=== PATIENT | male | born 1950 ===

== ENCOUNTER 2016-11-30 20:47 | Inpatient (IN) | payer MEDICARE ==
[2016-11-30 20:47] VITALS: BMI 21.9
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
[2016-11-30] MEDS: Albuterol-Ipratrop 3 mg / 0.5 (3 ml) UD IH SCH ×3 (21:10→21:37)
[2016-11-30] MEDS ORDERED: Albuterol-Ipratrop 3 mg / 0.5 (3 ml) UD ONE (21:12)
[2016-11-30 21:28] LABS: ABG ALLEN TEST POS; DRAW SITE R RAD
[2016-11-30 21:31] LABS: BASO % 0.5 % (0.0-2.0); EOS # 0.5 K/uL (0.0-0.7); EOS % 8.9 % (0.0-4.0); HEMATOCRIT 35.2 % (35.0-51.0); LYMPH # 0.8 K/uL (1.0-4.3); LYMPH % 13.1 % (20.0-40.0); MEAN CELL VOLUME 86.9 fL (80.0-94.0); MEAN CORPUSCULAR HEMOGLOBIN 28.2 pg (27.0-31.0); MEAN CORPUSCULAR HGB CONC 32.4 g/dL (33.0-37.0); MEAN PLATELET VOLUME 8.8 fL (7.2-11.7); MONO # 0.9 K/uL (0.0-0.8); RED CELL DISTRIBUTION WIDTH 15.5 % (11.5-14.5); WHITE BLOOD COUNT 6.1 K/uL (4.8-10.8)
[2016-11-30 21:42] LABS: POTASSIUM 5.3 mmol/L (3.6-5.2)
[2016-11-30 21:44] LABS: ALB/GLOB RATIO 1.3 (1.0-2.1); BILIRUBIN,TOTAL 0.8 mg/dL (0.2-1.3)
[2016-11-30 21:45] LABS: CALCIUM 7.9 mg/dl (8.6-10.4)
[2016-11-30 21:50] LABS: INR 1.4
--- NOTE | 2016-12-01 10:52 | RAD ---
PROCEDURE: CHEST RADIOGRAPH, 1 VIEW HISTORY: SOB COMPARISON: 08/02/2016 FINDINGS: LUNGS: Prominent consolidative opacification of the left mid to lower lung zone with loculated small to moderate right pleural effusion. Bilateral hilar prominence. Venous congestion. Biapical pleural thickening with upper lobe granulomatous changes. PLEURA: As above. CARDIOVASCULAR: Mild cardiomegaly. OSSEOUS STRUCTURES: Degenerative changes in the spine and shoulders. VISUALIZED UPPER ABDOMEN: Normal. OTHER FINDINGS: None. IMPRESSION: Prominent consolidative opacification of the left mid to lower lung zone with loculated small to moderate right pleural effusion. Bilateral hilar prominence. Venous congestion. Biapical pleural thickening with upper lobe granulomatous changes.
[2016-12-01] MEDS ORDERED: Metoprolol 1 mg/ml Inj IVP STA (12:57)
--- NOTE | 2016-12-01 15:45 | CP.PCM.PN ---
Subjective - Date & Time of Evaluation Date of Evaluation: 12/01/16 Time of Evaluation: 11:00 - Subjective Subjective: House Doctor Note House Doctor was called to evaluate patient who just finished dialysis and was complaining of chest pain. Patient was hypertensive 180/ 110 and tachycardic at 130-150s. EKG and Troponin (negative) was ordered. EKG showed afib/ a flutter. Patient was given 10mg lopressor IV and his blood pressured became more stable at 153/83 and HR was 100-115. Patient report he felt better. He was then transferred back to . Objective - Vital Signs/Intake and Output Vital Signs (last 24 hours): Temp Pulse Resp BP Pulse Ox 97.4 F L 110 H 20 135/60 97 12/01/16 15:21 12/01/16 15:21 12/01/16 15:21 12/01/16 15:21 12/01/16 15:21 Intake and Output: 12/01/16 12/01/16 06:59 18:59 Intake Total 240 Output Total 950 250 Balance -710 -250 - Medications Medications: Current Medications Heparin Sodium (Porcine) (Heparin) 5,000 units SC Q8 [facility] Last Admin: 12/01/16 14:48 Dose: 5,000 units Home Med (Meth/Meblue/Sod Phos/Psal/Hyos [Uribel Capsule]) 1 cap PO DAILY [facility] Sevelamer Carbonate (Renvela) 800 mg PO TID [facility] Last Admin: 12/01/16 14:48 Dose: 800 mg - Labs Labs: PT 15.6 SECONDS (9.7-12.2) H 11/30/16 21:25 INR 1.4 11/30/16 21:25 APTT 36 SECONDS (21-34) H 11/30/16 21:25
[2016-12-01] MEDS: Heparin25000 units/250ml 1/2NS 25,000 UNITS/250 ML BAG IV PRN (17:00)
[2016-12-01 17:17] LABS: INR 1.2
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
[2016-12-01] MEDS: guaiFENesin 600 mg ER Tab PO SCH (21:33)
[2016-12-01] MEDS: Rosuvastatin Calcium 2.5 mg Tab PO SCH (21:33)
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
--- NOTE | 2016-12-01 22:55 | CARD ---
APPROVED REPORT EKG Measurement Heart [id number] <Conclusion> Normal sinus rhythm Left atrial enlargement Left ventricular hypertrophy ST & Marked T wave abnormality, consider anterolateral ischemia or apical hypertrophy Abnormal ECG
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
[2016-12-02 08:10] LABS: BASO % 0.6 % (0.0-2.0); EOS # 1.3 K/uL (0.0-0.7); EOS % 21.8 % (0.0-4.0); HEMATOCRIT 38.9 % (35.0-51.0); LYMPH # 1.2 K/uL (1.0-4.3); LYMPH % 19.4 % (20.0-40.0); MEAN CELL VOLUME 86.1 fL (80.0-94.0); MEAN CORPUSCULAR HEMOGLOBIN 28.4 pg (27.0-31.0); MEAN PLATELET VOLUME 8.6 fL (7.2-11.7); MONO # 1.1 K/uL (0.0-0.8); MONO % 18.5 % (0.0-10.0); NRBC % 0.1 % (0.0-2.0); PLATELET COUNT 168 K/uL (130-400); RED CELL DISTRIBUTION WIDTH 15.5 % (11.5-14.5); WHITE BLOOD COUNT 6.1 K/uL (4.8-10.8)
[2016-12-02 08:15] LABS: INR 1.2
[2016-12-02 08:38] LABS: BASOPHIL 1 % (0-2); EOSINOPHIL 18 % (0-4); NEUTROPHIL 40 % (50-75); REACTIVE LYMPHOCYTES 2 % (0-0); TOTAL CELLS COUNTED 100
[2016-12-02] MEDS: Hyoscyamine 0.125 mg SL Tab SL SCH (10:00)
[2016-12-02] MEDS: guaiFENesin 600 mg ER Tab PO SCH ×2 (10:00→17:51)
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
--- NOTE | 2016-12-02 15:37 | CP.PCM.PN ---
<Dillon Griffin - Last Filed: 12/02/16 17:15> Subjective - Date & Time of Evaluation Date of Evaluation: 12/02/16 Time of Evaluation: 10:00 - Subjective Subjective: EP-Cardiology Progress Note Dr. Alan Patient seen and examined at bedside. HR now controlled, bradycardic to 40's overnight, but hemodynamically stable. Cardizem drip stopped this AM. Denies chest pain, shortness of breath. Remaining ROS negative. Objective - Vital Signs/Intake and Output Vital Signs (last 24 hours): Temp Pulse Resp BP Pulse Ox 97.6 F 45 L 18 99/59 L 96 12/02/16 07:20 12/02/16 07:30 12/02/16 07:20 12/02/16 07:20 12/02/16 07:20 Intake and Output: 12/02/16 12/02/16 06:59 18:59 Intake Total 379.6 Output Total 600 Balance -220.4 - Medications Medications: Current Medications Guaifenesin (Mucinex La) [address] [facility] Last Admin: 12/02/16 10:00 Dose: 600 mg Hyoscyamine (Levsin) 0.[address] [facility] Heparin Sodium/Sodium Chloride (Heparin 28429 Units/250ml 1/2 Normal Saline) 25 ,000 units in 250 mls @ 8.424 mls/hr IV .Q24H PRN; Protocol; 12 UNITS/KG/HR PRN Reason: PROTOCOL Last Admin: 12/01/16 17:00 Dose: 12 units/kg/hr, 8.424 mls/hr Metoprolol Tartrate (Lopressor) [address] [facility] Last Admin: 12/02/16 10:00 Dose: Not Given Rosuvastatin Calcium (Crestor) 2.[address] [facility] Last Admin: 12/01/16 21:33 Dose: 2.5 mg Sevelamer Carbonate (Renvela) [address] [facility] Last Admin: 12/02/16 14:30 Dose: 800 mg - Labs Labs: 12/02/16 07:57 PT 13.6 SECONDS (9.7-12.2) H 12/02/16 07:57 INR 1.2 12/02/16 07:57 APTT 52 SECONDS (21-34) H D 12/02/16 07:57 - Additional Findings Additional findings: - Constitutional Appears: No Acute Distress, Non-toxic, No acute distress - Head Exam Head Exam: NORMAL INSPECTION, NORMOCEPHALIC - Eye Exam Eye Exam: EOMI, Normal appearance, No scleral icterus/conjunctival injection - ENT Exam ENT Exam: Mucous Membranes Moist - Neck Exam Neck exam: Appropriate ROM, No JVD - Respiratory Exam Respiratory Exam: Wheezes (mild diffuse wheezing in all auscultated santoyo), NORMAL BREATHING PATTERN - Cardiovascular Exam Cardiovascular Exam: Bradycardia, Regular rhythm, HR 40's-50's on bedside telemetry monitoring; no tachycardia, irregular rhythm - GI/Abdominal Exam GI & Abdominal Exam: Normal Bowel Sounds, Soft. absent: Distended, Tenderness - Extremities Exam Extremities exam: Positive for: full ROM, normal inspection. Negative for: pedal edema - Back Exam Back exam: NORMAL INSPECTION - Neurological Exam Neurological exam: Awake/Alert, Oriented x3 - Psychiatric Exam Psychiatric exam: Normal Affect, Normal Mood - Skin Skin Exam: Dry, Normal Color, Warm, Intact Assessment and Plan (1) Atrial fibrillation with RVR Assessment & Plan: EKG 12/01/16: Atrial fibrillation with RVR. EKG on admission 11/30/16: Sinus Rhythm (61), ST/T Changes (anterolat ischmia unchanged from 08/02/16), Nonspecific Changes. ECHO 06/29/16: Mild to moderate LVH, mild ventricular diastolic dysfunction, left atrium mildly dilatates, moderated pulm HTN. Recent cath on - Non obstructive. -HR stable, bradycardic overnight but remained hemodynamically stable -Cardizem drip stopped, continue Metoprolol Tartrate 25mg PO daily -Continue heparin drip -No ablation needed at this time -T-wave inversions noted on telemetry, may be 2/2 to tachycardic rate previously , continue to monitor -Additional management as per Dr. Anderson Status: Acute - Assessment and Plan (Free Text) Assessment: Case discussed with Dr. Alan. <Elvie Alan - Last Filed: 01/16/17 01:42> Objective - Vital Signs/Intake and Output Vital Signs (last 24 hours): Temp Pulse Resp BP Pulse Ox 97.6 F 60 20 119/72 95 12/03/16 15:15 12/03/16 15:15 12/03/16 15:15 12/03/16 15:15 12/03/16 15:15 - Labs Labs: 12/03/16 07:13 12/03/16 07:13 PT 12.1 SECONDS (9.7-12.2) 12/03/16 07:13 INR 1.1 12/03/16 07:13 APTT 51 SECONDS (21-34) H 12/03/16 07:13 Assessment and Plan (1) Atrial fibrillation with RVR Status: Acute Attending/Attestation - Attestation I have personally seen and examined this patient.: Yes I have fully participated in the care of the patient.: Yes I have reviewed all pertinent clinical information, including history, physical exam and plan: Yes Notes (Text): 01/16/17 01:41 Cardizem drip stopped for salvador continue HD
[2016-12-02] MEDS: Rosuvastatin Calcium 2.5 mg Tab PO SCH (21:45)
[2016-12-02] MEDS: Heparin25000 units/250ml 1/2NS 25,000 UNITS/250 ML BAG IV PRN (21:46)
--- NOTE | 2016-12-02 22:57 | CP.PCM.PN ---
Subjective - Date & Time of Evaluation Date of Evaluation: 12/02/16 Time of Evaluation: 07:37 - Subjective Subjective: Pt seen & evaluated, is feeling better Objective - Vital Signs/Intake and Output Vital Signs (last 24 hours): Temp Pulse Resp BP Pulse Ox 97.7 F 50 L 20 120/65 95 12/02/16 15:46 12/02/16 15:46 12/02/16 15:46 12/02/16 15:46 12/02/16 15:46 Intake and Output: 12/02/16 12/03/16 18:59 06:59 Intake Total 250 Balance 250 - Medications Medications: Current Medications Guaifenesin (Mucinex La) 600 mg PO BID [facility] Last Admin: 12/02/16 17:51 Dose: 600 mg Hyoscyamine (Levsin) 0.125 mg SL DAILY [facility] Heparin Sodium/Sodium Chloride (Heparin 96673 Units/250ml 1/2 Normal Saline) 25 ,000 units in 250 mls @ 8.424 mls/hr IV .Q24H PRN; Protocol; 12 UNITS/KG/HR PRN Reason: PROTOCOL Last Admin: 12/02/16 21:46 Dose: 12 units/kg/hr, 8.424 mls/hr Metoprolol Tartrate (Lopressor) 25 mg PO DAILY [facility] Last Admin: 12/02/16 10:00 Dose: Not Given Rosuvastatin Calcium (Crestor) 2.5 mg PO HS [facility] Last Admin: 12/02/16 21:45 Dose: 2.5 mg Sevelamer Carbonate (Renvela) 800 mg PO TID [facility] Last Admin: 12/02/16 17:51 Dose: 800 mg - Labs Labs: 12/02/16 07:57 PT 13.6 SECONDS (9.7-12.2) H 12/02/16 07:57 INR 1.2 12/02/16 07:57 APTT 52 SECONDS (21-34) H D 12/02/16 07:57 - Constitutional Appears: Well - Head Exam Head Exam: ATRAUMATIC, NORMAL INSPECTION, NORMOCEPHALIC - Eye Exam Eye Exam: EOMI, Normal appearance, PERRL Pupil Exam: NORMAL ACCOMODATION, PERRL - ENT Exam ENT Exam: Mucous Membranes Moist, Normal Exam - Respiratory Exam Respiratory Exam: Decreased Breath Sounds, Rales, NORMAL BREATHING PATTERN - Cardiovascular Exam Cardiovascular Exam: Bradycardia, +S1, +S2 - GI/Abdominal Exam GI & Abdominal Exam: Soft, Normal Bowel Sounds. absent: Tenderness
--- NOTE | 2016-12-03 00:36 | CP.PCM.PN ---
Subjective - Date & Time of Evaluation Date of Evaluation: 12/02/16 Time of Evaluation: 14:00 - Subjective Subjective: SEEN ON RENAL F/U ON HD T T S FEELS IMPROVED Objective - Vital Signs/Intake and Output Vital Signs (last 24 hours): Temp Pulse Resp BP Pulse Ox 97.7 F 50 L 20 120/65 95 12/02/16 15:46 12/02/16 15:46 12/02/16 15:46 12/02/16 15:46 12/02/16 15:46 Intake and Output: 12/02/16 12/03/16 18:59 06:59 Intake Total 650 Output Total 300 Balance 350 - Medications Medications: Current Medications Guaifenesin (Mucinex La) 600 mg PO BID [facility] Last Admin: 12/02/16 17:51 Dose: 600 mg Hyoscyamine (Levsin) 0.125 mg SL DAILY [facility] Heparin Sodium/Sodium Chloride (Heparin 83413 Units/250ml 1/2 Normal Saline) 25 ,000 units in 250 mls @ 8.424 mls/hr IV .Q24H PRN; Protocol; 12 UNITS/KG/HR PRN Reason: PROTOCOL Last Admin: 12/02/16 21:46 Dose: 12 units/kg/hr, 8.424 mls/hr Metoprolol Tartrate (Lopressor) 25 mg PO DAILY [facility] Last Admin: 12/02/16 10:00 Dose: Not Given Rosuvastatin Calcium (Crestor) 2.5 mg PO HS [facility] Last Admin: 12/02/16 21:45 Dose: 2.5 mg Sevelamer Carbonate (Renvela) 800 mg PO TID [facility] Last Admin: 12/02/16 17:51 Dose: 800 mg - Labs Labs: 12/02/16 07:57 PT 13.6 SECONDS (9.7-12.2) H 12/02/16 07:57 INR 1.2 12/02/16 07:57 APTT 52 SECONDS (21-34) H D 12/02/16 07:57 Assessment and Plan - Assessment and Plan (Free Text) Assessment: ESRD ON HD T T S MULTIPLE CO MORBIDITIES P : C/O CURRENT CARE
--- NOTE | 2016-12-03 06:39 | CP.PCM.PN ---
Subjective - Date & Time of Evaluation Date of Evaluation: 12/03/16 Time of Evaluation: 06:35 - Subjective Subjective: no complaints on HD Objective - Vital Signs/Intake and Output Vital Signs (last 24 hours): Temp Pulse Resp BP Pulse Ox 97.9 F 54 L 20 117/66 99 12/03/16 05:24 12/03/16 05:24 12/03/16 05:24 12/03/16 05:24 12/03/16 05:24 Intake and Output: 12/02/16 12/03/16 18:59 06:59 Intake Total 650 Output Total 675 Balance -25 - Medications Medications: Current Medications Guaifenesin (Mucinex La) 600 mg PO BID [facility] Last Admin: 12/02/16 17:51 Dose: 600 mg Hyoscyamine (Levsin) 0.125 mg SL DAILY [facility] Heparin Sodium/Sodium Chloride (Heparin 19791 Units/250ml 1/2 Normal Saline) 25 ,000 units in 250 mls @ 8.424 mls/hr IV .Q24H PRN; Protocol; 12 UNITS/KG/HR PRN Reason: PROTOCOL Last Admin: 12/02/16 21:46 Dose: 12 units/kg/hr, 8.424 mls/hr Metoprolol Tartrate (Lopressor) 25 mg PO DAILY [facility] Last Admin: 12/02/16 10:00 Dose: Not Given Rosuvastatin Calcium (Crestor) 2.5 mg PO HS [facility] Last Admin: 12/02/16 21:45 Dose: 2.5 mg Sevelamer Carbonate (Renvela) 800 mg PO TID [facility] Last Admin: 12/02/16 17:51 Dose: 800 mg - Labs Labs: 12/02/16 07:57 PT 13.6 SECONDS (9.7-12.2) H 12/02/16 07:57 INR 1.2 12/02/16 07:57 APTT 52 SECONDS (21-34) H D 12/02/16 07:57 - Constitutional Appears: Well - Head Exam Head Exam: ATRAUMATIC, NORMOCEPHALIC - Eye Exam Eye Exam: Normal appearance - ENT Exam ENT Exam: Mucous Membranes Moist - Respiratory Exam Respiratory Exam: Rhonchi - Cardiovascular Exam Cardiovascular Exam: REGULAR RHYTHM, Murmur - GI/Abdominal Exam GI & Abdominal Exam: Soft, Normal Bowel Sounds - Exam External exam: NORMAL EXTERNAL EXAM - Extremities Exam Extremities Exam: Normal Inspection - Neurological Exam Neurological Exam: Awake - Psychiatric Exam Psychiatric exam: Normal Affect - Skin Skin Exam: Dry Assessment and Plan (1) Atrial fibrillation with RVR Assessment & Plan: continue crestoe for cholesterhol and rate control HD as per nephrology Status: Acute
[2016-12-03 07:32] LABS: BASO % 0.5 % (0.0-2.0); EOS # 1.1 K/uL (0.0-0.7); EOS % 19.2 % (0.0-4.0); HEMATOCRIT 36.8 % (35.0-51.0); LYMPH # 1.4 K/uL (1.0-4.3); LYMPH % 24.7 % (20.0-40.0); MEAN CELL VOLUME 85.6 fL (80.0-94.0); MEAN CORPUSCULAR HEMOGLOBIN 28.5 pg (27.0-31.0); MEAN CORPUSCULAR HGB CONC 33.3 g/dL (33.0-37.0); MEAN PLATELET VOLUME 8.8 fL (7.2-11.7); MONO % 17.5 % (0.0-10.0); NRBC % 0.1 % (0.0-2.0); RED CELL DISTRIBUTION WIDTH 15.2 % (11.5-14.5); WHITE BLOOD COUNT 5.6 K/uL (4.8-10.8)
[2016-12-03 07:37] LABS: INR 1.1
[2016-12-03 07:47] LABS: CHLORIDE 103 mmol/L (98-107); POTASSIUM 4.5 mmol/L (3.6-5.2); SODIUM 136 mmol/L (132-148)
[2016-12-03 07:49] LABS: AST/SGOT 24 U/L (17-59); BILIRUBIN,TOTAL 0.7 mg/dL (0.2-1.3); CARBON DIOXIDE 21 mmol/L (22-30); CHOLESTEROL 86 mg/dL (0-199); GFR AFRICAN-AMERICAN 16; TOTAL PROTEIN 6.4 g/dL (6.3-8.3)
[2016-12-03 07:50] LABS: ALKALINE PHOSPHATASE 75 U/L (38-126); ALT/SGPT 22 U/L (21-72); BLOOD UREA NITROGEN 57 mg/dL (9-20); CALCIUM 8.4 mg/dl (8.6-10.4); GLUCOSE,RANDOM 89 mg/dL (75-110)
[2016-12-03 08:09] LABS: ALB/GLOB RATIO 1.1 (1.0-2.1)
[2016-12-03 08:22] LABS: THYROID STIMULATING HORMONE < 0.02 mIU/L (0.46-4.68)
[2016-12-03] MEDS: Hyoscyamine 0.125 mg SL Tab SL SCH (10:00)
[2016-12-03] MEDS: guaiFENesin 600 mg ER Tab PO SCH ×2 (13:41→18:18)
[2016-12-03 18:11] VITALS: BP 119/72; PULSE 60; RESP 20; TEMP 97.6; O2SAT 95
--- NOTE | 2016-12-03 19:49 | CP.PCM.PN ---
Subjective - Date & Time of Evaluation Date of Evaluation: 12/03/16 Time of Evaluation: 19:47 - Subjective Subjective: had hd still wheezy refused presciption on hd only 1.5 out very low pump speed will sign out AMA risks explained including f/up as out pt Objective - Vital Signs/Intake and Output Vital Signs (last 24 hours): Temp Pulse Resp BP Pulse Ox 97.6 F 60 20 119/72 95 12/03/16 15:15 12/03/16 15:15 12/03/16 15:15 12/03/16 15:15 12/03/16 15:15 - Medications Medications: Current Medications Guaifenesin (Mucinex La) 600 mg PO BID [facility] Last Admin: 12/03/16 18:18 Dose: 600 mg Hyoscyamine (Levsin) 0.125 mg SL DAILY [facility] Last Admin: 12/03/16 10:00 Dose: Not Given Metoprolol Tartrate (Lopressor) 25 mg PO DAILY [facility] Last Admin: 12/03/16 10:00 Dose: Not Given Rosuvastatin Calcium (Crestor) 2.5 mg PO HS [facility] Last Admin: 12/02/16 21:45 Dose: 2.5 mg Sevelamer Carbonate (Renvela) 800 mg PO TID [facility] Last Admin: 12/03/16 18:18 Dose: 800 mg - Labs Labs: 12/03/16 07:13 12/03/16 07:13 PT 12.1 SECONDS (9.7-12.2) 12/03/16 07:13 INR 1.1 12/03/16 07:13 APTT 51 SECONDS (21-34) H 12/03/16 07:13 - Constitutional Appears: Non-toxic - Head Exam Head Exam: NORMAL INSPECTION - Eye Exam Eye Exam: Normal appearance - ENT Exam ENT Exam: Mucous Membranes Moist - Respiratory Exam Respiratory Exam: Wheezes - Cardiovascular Exam Cardiovascular Exam: REGULAR RHYTHM - GI/Abdominal Exam GI & Abdominal Exam: Soft, Normal Bowel Sounds - Extremities Exam Extremities Exam: Normal Inspection - Neurological Exam Neurological Exam: Alert, Awake, Normal Gait - Psychiatric Exam Psychiatric exam: Agitated, Normal Affect, Normal Mood - Skin Skin Exam: Dry, Warm Assessment and Plan - Assessment and Plan (Free Text) Plan: hd tts
--- NOTE | 2016-12-03 23:34 | CP.PCM.DIS ---
Provider - Provider Date of Admission: 11/30/16 22:04 Attending physician: Preston Toth MD Time Spent in preparation of Discharge (in minutes): 30 Hospital Course - Lab Results Lab Results: Most Recent Lab Values WBC 5.6 K/uL (4.8-10.8) 12/03/16 07:13 RBC 4.30 Mil/uL (4.40-5.90) L 12/03/16 07:13 Hgb 12.2 g/dL (12.0-18.0) 12/03/16 07:13 Hct 36.8 % (35.0-51.0) 12/03/16 07:13 MCV 85.6 fL (80.0-94.0) 12/03/16 07:13 MCH 28.5 pg (27.0-31.0) 12/03/16 07:13 MCHC 33.3 g/dL (33.0-37.0) 12/03/16 07:13 RDW 15.2 % (11.5-14.5) H 12/03/16 07:13 Plt Count 158 K/uL (130-400) 12/03/16 07:13 MPV 8.8 fL (7.2-11.7) 12/03/16 07:13 Neut % (Auto) 38.1 % (50.0-75.0) L 12/03/16 07:13 Lymph % (Auto) 24.7 % (20.0-40.0) 12/03/16 07:13 [place] % (Auto) 17.5 % (0.0-10.0) H 12/03/16 07:13 Eos % (Auto) 19.2 % (0.0-4.0) H 12/03/16 07:13 Baso % (Auto) 0.5 % (0.0-2.0) 12/03/16 07:13 Neut # 2.1 K/uL (1.8-7.0) 12/03/16 07:13 Lymph # 1.4 K/uL (1.0-4.3) 12/03/16 07:13 [place] # 1.0 K/uL (0.0-0.8) H 12/03/16 07:13 Eos # 1.1 K/uL (0.0-0.7) H 12/03/16 07:13 Baso # 0.0 K/uL (0.0-0.2) 12/03/16 07:13 Neutrophils % (Manual) 40 % (50-75) L 12/02/16 07:57 Band Neutrophils % 3 % (0-2) H 12/02/16 07:57 Lymphocytes % (Manual) 17 % (20-40) L 12/02/16 07:57 Reactive Lymphs % 2 % (0-0) H 12/02/16 07:57 Monocytes % (Manual) 19 % (0-10) H 12/02/16 07:57 Eosinophils % (Manual) 18 % (0-4) H 12/02/16 07:57 Basophils % (Manual) 1 % (0-2) 12/02/16 07:57 Platelet Estimate Normal (NORMAL) 12/02/16 07:57 Poikilocytosis (manual Slight 12/02/16 07:57 Anisocytosis (manual) Slight 12/02/16 07:57 Ovalocytes Slight 12/02/16 07:57 PT 12.1 SECONDS (9.7-12.2) 12/03/16 07:13 INR 1.1 12/03/16 07:13 APTT 51 SECONDS (21-34) H 12/03/16 07:13 Puncture Site R rad 11/30/16 21:25 pCO2 31 mm/Hg (35-45) L 11/30/16 21:25 pO2 170 mm/Hg (80-100) H 11/30/16 21:25 HCO3 22.3 mmol/L (21-28) 11/30/16 21:25 ABG pH 7.42 (7.35-7.45) 11/30/16 21:25 ABG Total CO2 21.1 mmol/L (22-28) L 11/30/16 21:25 ABG O2 Saturation 98.9 % (95-98) H 11/30/16 21:25 ABG Base Excess -3.4 mmol/L (-2.0-3.0) L 11/30/16 21:25 Florentino Test Pos 11/30/16 21:25 ABG Potassium 5.1 mmol/L (3.6-5.2) 11/30/16 21:25 Sodium 140.0 mmol/l (132-148) 11/30/16 21:25 Chloride 113.0 mmol/L (98-107) H 11/30/16 21:25 Glucose 91 mg/dl (75-110) 11/30/16 21:25 Lactate 0.6 mmol/L (0.7-2.1) L 11/30/16 21:25 Liter Flow 5.0 11/30/16 21:25 Sodium 136 mmol/L (132-148) 12/03/16 07:13 Potassium 4.5 mmol/L (3.6-5.2) 12/03/16 07:13 Chloride 103 mmol/L (98-107) 12/03/16 07:13 Carbon Dioxide 21 mmol/L (22-30) L 12/03/16 07:13 Anion Gap 17 (10-20) 12/03/16 07:13 BUN 57 mg/dL (9-20) H 12/03/16 07:13 Creatinine 4.6 MG/DL (0.8-1.5) H 12/03/16 07:13 Est GFR ( Amer) 16 12/03/16 07:13 Est GFR (Non-Af Amer) 13 12/03/16 07:13 Random Glucose 89 mg/dL (75-110) 12/03/16 07:13 Calcium 8.4 mg/dl (8.6-10.4) L 12/03/16 07:13 Total Bilirubin 0.7 mg/dL (0.2-1.3) 12/03/16 07:13 AST 24 U/L (17-59) 12/03/16 07:13 ALT 22 U/L (21-72) 12/03/16 07:13 Alkaline Phosphatase 75 U/L (38-126) 12/03/16 07:13 Troponin I 0.0450 ng/mL (0.00-0.120) 12/01/16 12:43 NT-Pro-B Natriuret Pep 56772 pg/mL (0-900) H 11/30/16 21:25 Total Protein 6.4 g/dL (6.3-8.3) 12/03/16 07:13 Albumin 3.4 g/dL (3.5-5.0) L 12/03/16 07:13 Globulin 3.0 gm/dL (2.2-3.9) 12/03/16 07:13 Albumin/Globulin Ratio 1.1 (1.0-2.1) 12/03/16 07:13 Triglycerides 117 mg/dL (0-149) 12/03/16 07:13 Cholesterol 86 mg/dL (0-199) 12/03/16 07:13 LDL Cholesterol Direct 35 mg/dL (0-129) 12/03/16 07:13 HDL Cholesterol 30 mg/dL (30-70) 12/03/16 07:13 TSH 3rd Generation < 0.02 mIU/L (0.46-4.68) L 12/03/16 07:13 Arterial Blood Potassium 5.1 mmol/L (3.6-5.2) 11/30/16 21:25 - Hospital Course Hospital Course: Pt was seen and examined, started on heparin and coumadin later Pt signed out against medical advice, had hd still wheezy refused presciption on hd only 1.5 out very low pump speed will sign out AMA risks explained including f/up as out pt Discharge Exam - Head Exam Head Exam: NORMAL INSPECTION - Eye Exam Eye Exam: EOMI, Normal appearance, PERRL Pupil Exam: NORMAL ACCOMODATION, PERRL - ENT Exam ENT Exam: Mucous Membranes Moist - Respiratory Exam Respiratory Exam: Clear to PA & Lateral, NORMAL BREATHING PATTERN - Cardiovascular Exam Cardiovascular Exam: REGULAR RHYTHM, +S1, +S2 - GI/Abdominal Exam GI & Abdominal Exam: Normal Bowel Sounds - Neurological Exam Neurological exam: Alert, CN II-XII Intact, Normal Gait, Oriented x3, Reflexes Normal Discharge Plan - Follow Up Plan Condition: FAIR Disposition: AGAINST MEDICAL ADVICE
--- NOTE | 2016-12-07 08:31 | PCM.HF ---
Heart Failure Core Measure - Heart Failure Ejection Fraction: 40 % or Greater TONEY Inhibitor Prescribed: No Contraindication/Reason for not providing: ESRD Beta-Ambrose Prescribed: Metoprolol Succinate Angiotensin II Receptor Ambrose Prescribed: No Contraindication/Reason for not providing: ESRD AnticoagulationTherapy for Atrial Fibrillation/Atrialflutter: Yes Aldosterone Antagonist Prescribed: No Contraindication/Reason for not providing: EF>45/ESRD Hydralazine Nitrate Prescribed: No Contraindication/Reason for not providing: ESRD/EF>45 Implantable Cardioverter Defibrillator Therapy: No Contraindication/Reason for not providing: EF>45 Cardiac Resynchronization Therapy Prescribed: No Contraindication/Reason for not providing: EF>45 - Follow up Will be discharged to: Home Follow Up Date (must be within 7 days from discharge): 12/07/16 Follow Up Time: 09:00
--- NOTE | 2016-12-27 08:01 | CARD ---
APPROVED REPORT EKG Measurement Heart [id number] <Conclusion> Atrial flutter with variable AV block with premature ventricular or aberrantly conducted complexes Left ventricular hypertrophy with repolarization abnormality Abnormal ECG
== END 2016-12-03 20:40 | disposition left against medical advice (07) | DRG 308 ==
LOC: C.ER 20:47 → C.9E 22:04 → C.6T 22:55
PROVIDERS: ADMIT Internal Medicine; ATTEND Internal Medicine
PROC: 5A1D00Z (ICD-10-PCS; principal; 2016-12-01)
DX: I48.91 Unspecified atrial fibrillation (principal); N18.6 End stage renal disease; I13.2 Hypertensive heart and chronic kidney disease with heart failure and with stage 5 chronic kidney disease, or end stage renal disease; Q60.0 Renal agenesis, unilateral; I27.2 Other secondary pulmonary hypertension; D72.1 Eosinophilia; I48.92 Unspecified atrial flutter; I50.30 Unspecified diastolic (congestive) heart failure; Z96.641 Presence of right artificial hip joint; E78.5 Hyperlipidemia, unspecified; Z99.2 Dependence on renal dialysis; Z86.718 Personal history of other venous thrombosis and embolism; Z87.891 Personal history of nicotine dependence

== ENCOUNTER 2017-03-30 11:36 | Observation (INO) | payer MEDICARE ==
[2017-03-30 11:36] VITALS: BMI 21.9
[2017-03-30 12:05] LABS: BASO % 0.5 % (0.0-2.0); EOS # 1.1 K/uL (0.0-0.7); EOS % 13.8 % (0.0-4.0); HEMATOCRIT 49.8 % (35.0-51.0); LYMPH # 1.6 K/uL (1.0-4.3); LYMPH % 20.9 % (20.0-40.0); MEAN CORPUSCULAR HEMOGLOBIN 30.4 pg (27.0-31.0); MEAN CORPUSCULAR HGB CONC 34.1 g/dL (33.0-37.0); MEAN PLATELET VOLUME 8.6 fL (7.2-11.7); MONO # 0.9 K/uL (0.0-0.8); NRBC % 0.1 % (0.0-2.0); RED CELL DISTRIBUTION WIDTH 14.8 % (11.5-14.5); WHITE BLOOD COUNT 7.7 K/uL (4.8-10.8)
[2017-03-30 12:07] LABS: MEAN CELL VOLUME 89.2 fL (80.0-94.0)
[2017-03-30] MEDS ORDERED: HYDROmorphone 0.5 mg/0.5 ml ISec IVP STA (12:10)
[2017-03-30 12:15] LABS: POTASSIUM 4.4 mmol/L (3.6-5.2)
[2017-03-30 12:17] LABS: BILIRUBIN,TOTAL 1.6 mg/dL (0.2-1.3)
[2017-03-30 12:18] LABS: ALB/GLOB RATIO 1.3 (1.0-2.1); CALCIUM 8.9 mg/dl (8.6-10.4); TOTAL PROTEIN 8.9 g/dL (6.3-8.3)
--- NOTE | 2017-03-30 12:58 | RAD ---
HISTORY: cp COMPARISON: Chest x-ray performed 11/30/16 TECHNIQUE: Chest, one view. FINDINGS: LUNGS: Small left pleural effusion. Bibasilar atelectasis/ infiltrates. Biapical pleural thickening. No definite pneumothorax. Please note that chest x-ray has limited sensitivity for the detection of pulmonary masses. CARDIOVASCULAR: Mild cardiomegaly. Atherosclerotic calcifications of the aorta. OSSEOUS STRUCTURES: Degenerative changes. VISUALIZED UPPER ABDOMEN: Unremarkable. OTHER FINDINGS: None. IMPRESSION: Small left pleural effusion. Bibasilar atelectasis/ infiltrates. Biapical pleural thickening. Cardiomegaly.
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
[2017-03-30] MEDS ORDERED: Digoxin 500 mcg/2ml (0.5 mg/2ml) Inj IVP ONE (14:38)
[2017-03-30] MEDS ORDERED: Digoxin 500 mcg/2ml (0.5 mg/2ml) Inj ONE (15:02)
[2017-03-30 15:11] VITALS: PULSE 136
[2017-03-30] MEDS ORDERED: Metoprolol Succinate 25 mg XL Tab PO STA (18:58)
[2017-03-30] MEDS ORDERED: Rosuvastatin Calcium 2.5 mg Tab PO SCH (22:00)
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
[2017-03-31 08:19] LABS: POTASSIUM 4.5 mmol/L (3.6-5.2)
[2017-03-31 08:23] LABS: CALCIUM 8.6 mg/dl (8.6-10.4)
[2017-03-31 08:43] VITALS: TEMP 97.6; O2SAT 97
[2017-03-31] MEDS ORDERED: Metoprolol Succinate 25 mg XL Tab PO SCH (10:00)
[2017-03-31 10:20] VITALS: BP 143/77; PULSE 50; RESP 18
--- NOTE | 2017-03-31 23:37 | CP.PCM.DIS ---
Provider - Provider Date of Admission: 03/30/17 14:34 Attending physician: Preston Toth MD Hospital Course - Lab Results Lab Results: Most Recent Lab Values WBC 7.7 K/uL (4.8-10.8) 03/30/17 12:01 RBC 5.59 Mil/uL (4.40-5.90) 03/30/17 12:01 Hgb 17.0 g/dL (12.0-18.0) D 03/30/17 12:01 Hct 49.8 % (35.0-51.0) 03/30/17 12:01 MCV 89.2 fL (80.0-94.0) D 03/30/17 12:01 MCH 30.4 pg (27.0-31.0) 03/30/17 12:01 MCHC 34.1 g/dL (33.0-37.0) 03/30/17 12:01 RDW 14.8 % (11.5-14.5) H 03/30/17 12:01 Plt Count 140 K/uL (130-400) 03/30/17 12:01 MPV 8.6 fL (7.2-11.7) 03/30/17 12:01 Neut % (Auto) 52.8 % (50.0-75.0) 03/30/17 12:01 Lymph % (Auto) 20.9 % (20.0-40.0) 03/30/17 12:01 [place] % (Auto) 12.0 % (0.0-10.0) H 03/30/17 12:01 Eos % (Auto) 13.8 % (0.0-4.0) H 03/30/17 12:01 Baso % (Auto) 0.5 % (0.0-2.0) 03/30/17 12:01 Neut # 4.1 K/uL (1.8-7.0) 03/30/17 12:01 Lymph # 1.6 K/uL (1.0-4.3) 03/30/17 12:01 [place] # 0.9 K/uL (0.0-0.8) H 03/30/17 12:01 Eos # 1.1 K/uL (0.0-0.7) H 03/30/17 12:01 Baso # 0.0 K/uL (0.0-0.2) 03/30/17 12:01 PT 11.5 SECONDS (9.7-12.2) 03/30/17 12:01 INR 1.0 03/30/17 12:01 APTT 24 SECONDS (21-34) 03/30/17 12:01 Sodium 140 mmol/L (132-148) 03/31/17 08:00 Potassium 4.5 mmol/L (3.6-5.2) 03/31/17 08:00 Chloride 97 mmol/L (98-107) L 03/31/17 08:00 Carbon Dioxide 27 mmol/L (22-30) 03/31/17 08:00 Anion Gap 21 (10-20) H 03/31/17 08:00 BUN 34 mg/dL (9-20) H 03/31/17 08:00 Creatinine 3.3 MG/DL (0.8-1.5) H 03/31/17 08:00 Est GFR ( Amer) 23 03/31/17 08:00 Est GFR (Non-Af Amer) 19 03/31/17 08:00 Random Glucose 79 mg/dL (75-110) 03/31/17 08:00 Calcium 8.6 mg/dl (8.6-10.4) 03/31/17 08:00 Total Bilirubin 1.6 mg/dL (0.2-1.3) H 03/30/17 12:01 AST 58 U/L (17-59) 03/30/17 12:01 ALT 24 U/L (21-72) 03/30/17 12:01 Alkaline Phosphatase 119 U/L (38-126) 03/30/17 12:01 Total Creatine Kinase 120 U/L (55-170) 03/30/17 19:55 CK-MB (Mass) 8.02 ng/mL (0.0-3.38) H 03/30/17 19:55 Troponin I, Quant 0.9040 ng/mL (0.00-0.120) H* 03/30/17 19:55 Total Protein 8.9 g/dL (6.3-8.3) H 03/30/17 12:01 Albumin 5.0 g/dL (3.5-5.0) D 03/30/17 12:01 Globulin 4.0 gm/dL (2.2-3.9) H 03/30/17 12:01 Albumin/Globulin Ratio 1.3 (1.0-2.1) 03/30/17 12:01 TSH 3rd Generation 0.02 mIU/L (0.46-4.68) L 03/30/17 17:12 Discharge Plan - Follow Up Plan Condition: FAIR Disposition: AGAINST MEDICAL ADVICE
--- NOTE | 2017-04-01 01:39 | CARD ---
APPROVED REPORT EKG Measurement Heart [id number] <Conclusion> Normal sinus rhythm with sinus arrhythmia Biatrial enlargement Left ventricular hypertrophy ST & T wave abnormality, consider inferior ischemia ST & T wave abnormality, consider anterolateral ischemia Abnormal ECG
--- NOTE | 2017-04-03 16:37 | CARD ---
APPROVED REPORT EKG Measurement Heart [id number] <Conclusion> Normal sinus rhythm with sinus arrhythmia Biatrial enlargement Left ventricular hypertrophy ST & T wave abnormality, consider inferior ischemia ST & T wave abnormality, consider anterolateral ischemia Abnormal ECG
--- NOTE | 2017-04-03 16:40 | CARD ---
APPROVED REPORT EKG Measurement Heart [id number] <Conclusion> Atrial fibrillation with rapid ventricular response with premature ventricular or aberrantly conducted complexes ST & T wave abnormality, consider inferior ischemia ST & T wave abnormality, consider anterolateral ischemia Abnormal ECG
== END 2017-03-31 12:23 | disposition left against medical advice (07) ==
LOC: C.ER 11:36 → C.9E 14:34 → C.6T 19:26
PROVIDERS: ADMIT Internal Medicine; ATTEND Internal Medicine
DX: I48.91 Unspecified atrial fibrillation (principal); N18.6 End stage renal disease; Z99.2 Dependence on renal dialysis; I13.2 Hypertensive heart and chronic kidney disease with heart failure and with stage 5 chronic kidney disease, or end stage renal disease; I50.9 Heart failure, unspecified; I82.403 Acute embolism and thrombosis of unspecified deep veins of lower extremity, bilateral; D64.9 Anemia, unspecified; E78.5 Hyperlipidemia, unspecified; Z87.891 Personal history of nicotine dependence
CPT/HCPCS: 36415; 71010; 80048; 80053; 84443; 84484; 85025; 85610; 85730; 93005; 96374; 96375; 96376; 99285; G0378; J1160; J1170

== ENCOUNTER 2017-06-06 08:56 | Emergency (ER) | payer MEDICARE ==
[2017-06-06 08:56] VITALS: PULSE 136; BMI 21.9
[2017-06-06 09:44] VITALS: BP 174/91; PULSE 68; RESP 18; TEMP 97.9; O2SAT 98
[2017-06-06] MEDS ORDERED: Absorbable Gelatin Sponge Size 12-7 MM STA (09:52)
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
[2017-06-06] MEDS ORDERED: Absorbable Gelatin Sponge Size 12-7 ONE (10:10)
== END 2017-06-06 10:15 | disposition home or self-care (01) ==
LOC: C.ER 08:56
DX: T82.838A Hemorrhage due to vascular prosthetic devices, implants and grafts, initial encounter (principal); Y84.9 Medical procedure, unspecified as the cause of abnormal reaction of the patient, or of later complication, without mention of misadventure at the time of the procedure; N18.6 End stage renal disease; Z99.2 Dependence on renal dialysis

== ENCOUNTER 2017-06-06 11:53 | Inpatient (IN) | payer MEDICARE ==
[2017-06-06 11:54] VITALS: PULSE 136; BMI 21.9
[2017-06-06 13:48] LABS: BASO # 0.1 K/uL (0.0-0.2); BASO % 0.7 % (0.0-2.0); EOS # 1.9 K/uL (0.0-0.7); EOS % 22.7 % (0.0-4.0); HEMATOCRIT 40.7 % (35.0-51.0); LYMPH # 1.3 K/uL (1.0-4.3); LYMPH % 15.1 % (20.0-40.0); MEAN CELL VOLUME 89.4 fL (80.0-94.0); MEAN CORPUSCULAR HEMOGLOBIN 29.5 pg (27.0-31.0); MEAN PLATELET VOLUME 9.4 fL (7.2-11.7); MONO # 0.7 K/uL (0.0-0.8); MONO % 8.6 % (0.0-10.0); PLATELET COUNT 159 K/uL (130-400); RED CELL DISTRIBUTION WIDTH 13.5 % (11.5-14.5); WHITE BLOOD COUNT 8.4 K/uL (4.8-10.8)
[2017-06-06 14:13] LABS: BILIRUBIN,TOTAL 0.7 mg/dL (0.2-1.3); CALCIUM 7.8 mg/dl (8.6-10.4); TOTAL PROTEIN 8.7 g/dL (6.3-8.3)
[2017-06-06 14:14] LABS: POTASSIUM 5.5 mmol/L (3.6-5.2)
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
[2017-06-06 14:45] LABS: EOSINOPHIL 23 % (0-4); NEUTROPHIL 50 % (50-75); REACTIVE LYMPHOCYTES 1 % (0-0); TOTAL CELLS COUNTED 100
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
[2017-06-06] MEDS: Pantoprazole 40 mg EC Tab PO SCH (18:09)
[2017-06-07] MEDS: Pantoprazole 40 mg EC Tab PO SCH ×2 (09:57→13:59)
[2017-06-07] MEDS ORDERED: Propofol 10 mg/ml Inj (20 ML) ONE (10:54)
[2017-06-07] MEDS ORDERED: Midazolam 2 MG/2 ML VIAL ONE (10:54)
[2017-06-07] MEDS ORDERED: Lidocaine 1% Inj (20ml) ONE (11:02)
[2017-06-07] MEDS ORDERED: ceFAZolin IV 2 gm in Dextrose 2 GM/50 ML BAG IVPB ONE (11:02)
[2017-06-07] MEDS ORDERED: HEPARIN-NS 5,000 UNITS/500 ML 5,000 UNIT/500 ML BAG IV ONE (11:04)
[2017-06-07] MEDS ORDERED: Sodium Chloride 0.9% 1,000 ML IV ONE (11:05)
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
--- NOTE | 2017-06-07 12:00 | PCM.SURG1 ---
Surgeon's Initial Post Op Note - Surgeon's Notes Surgeon: daryl Flower Cheniller: 0 Type of Anesthesia: IV Sedation Anesthesia Administered By: tom Pre-Operative Diagnosis: reenal failure Operative Findings: permacath via right jugular Post-Operative Diagnosis: same Operation Performed: permacath right jugular Specimen/Specimens Removed: 0 Estimated Blood Loss: EBL {In ML}: 5 Blood Products Given: N/A Drains Used: No Drains Post-Op Condition: Good Date of Surgery/Procedure: 06/07/17 Time of Surgery/Procedure: 12:00
--- NOTE | 2017-06-07 12:54 | RAD ---
HISTORY: permacath COMPARISON: Chest 03/30/2017. FINDINGS: LUNGS: Right center venous dialysis catheter is in place tunneled into position terminating at the cavoatrial junction. Extrapleural fluid is appreciated blunts the right costophrenic sulcus with none definitively shown on the left. Right hemidiaphragm remains elevated. No infiltrate bilaterally. A pneumothorax bilaterally. Likely chronic left pleural thickening again evident. CARDIOVASCULAR: Stable cardiomegaly. No pulmonary vascular derangement. OSSEOUS STRUCTURES: No significant abnormalities. VISUALIZED UPPER ABDOMEN: Normal. OTHER FINDINGS: None. IMPRESSION: Total right central venous dialysis catheter in position. No pneumothorax bilaterally. Trace right pleural effusion is questioned. Chronic left pleural thickening noted. Stable cardiomegaly.
[2017-06-07 16:06] LABS: BASO % 0.5 % (0.0-2.0); EOS # 0.2 K/uL (0.0-0.7); EOS % 2.4 % (0.0-4.0); HEMATOCRIT 37.6 % (35.0-51.0); LYMPH # 0.7 K/uL (1.0-4.3); LYMPH % 8.2 % (20.0-40.0); MEAN CORPUSCULAR HEMOGLOBIN 29.7 pg (27.0-31.0); MEAN CORPUSCULAR HGB CONC 33.3 g/dL (33.0-37.0); MEAN PLATELET VOLUME 9.1 fL (7.2-11.7); MONO # 0.7 K/uL (0.0-0.8); MONO % 8.1 % (0.0-10.0); PLATELET COUNT 136 K/uL (130-400); RED CELL DISTRIBUTION WIDTH 13.6 % (11.5-14.5); WHITE BLOOD COUNT 8.3 K/uL (4.8-10.8)
[2017-06-07 16:34] LABS: ALB/GLOB RATIO 1.3 (1.0-2.1); BILIRUBIN,TOTAL 0.7 mg/dL (0.2-1.3); CALCIUM 7.2 mg/dl (8.6-10.4); MAGNESIUM 1.5 mg/dL (1.6-2.3); PHOSPHOROUS 2.7 mg/dL (2.5-4.5); POTASSIUM 5.5 mmol/L (3.6-5.2); TOTAL PROTEIN 6.4 g/dL (6.3-8.3)
[2017-06-07 18:04] LABS: EOSINOPHIL 4 % (0-4); NEUTROPHIL 84 % (50-75); TOTAL CELLS COUNTED 100
--- NOTE | 2017-06-07 18:56 | CP.PCM.PN ---
Subjective - Date & Time of Evaluation Date of Evaluation: 06/07/17 Time of Evaluation: 08:40 - Subjective Subjective: clinically same Objective - Vital Signs/Intake and Output Vital Signs (last 24 hours): Temp Pulse Resp BP Pulse Ox 98 F 62 16 131/83 99 06/07/17 15:50 06/07/17 16:00 06/07/17 16:00 06/07/17 18:10 06/07/17 15:50 Intake and Output: 06/07/17 06/07/17 06:59 18:59 Intake Total 250 Output Total 500 Balance -250 - Medications Medications: Current Medications Acetaminophen (Ofirmev) 100 mls @ 400 mls/hr IV Q6 PRN PRN Reason: Pain, moderate (4-7) Stop: 06/08/17 11:59 Pantoprazole Sodium (Protonix Ec Tab) 40 mg PO DAILY [facility] Last Admin: 06/07/17 13:59 Dose: 40 mg Sevelamer Carbonate (Renvela) 800 mg PO TID [facility] Last Admin: 06/07/17 18:39 Dose: Not Given - Labs Labs: 06/07/17 15:52 06/07/17 15:52 - Constitutional Appears: Well - Head Exam Head Exam: ATRAUMATIC, NORMAL INSPECTION, NORMOCEPHALIC - Eye Exam Eye Exam: EOMI, Normal appearance, PERRL Pupil Exam: NORMAL ACCOMODATION, PERRL - ENT Exam ENT Exam: Mucous Membranes Moist, Normal Exam - Neck Exam Neck Exam: Full ROM, Normal Inspection. absent: Lymphadenopathy - Respiratory Exam Respiratory Exam: Decreased Breath Sounds - Cardiovascular Exam Cardiovascular Exam: REGULAR RHYTHM, +S1, +S2 - GI/Abdominal Exam GI & Abdominal Exam: Soft, Diminished Bowel Sounds - Rectal Exam Rectal Exam: Deferred Assessment and Plan (1) AV fistula occlusion Status: Acute (2) Acute chest pain Status: Acute (3) Gizsp-[id number] renal failure Status: Acute (4) Anemia Status: Acute (5) Atrial fibrillation with RVR Status: Acute (6) Atrial flutter with rapid ventricular response Status: Acute (7) Cellulitis Status: Acute (8) Cellulitis of hand, left Status: Acute (9) Chest discomfort Status: Acute (10) Chest pain Status: Acute (11) Chest pain Status: Acute (12) Coagulopathy Status: Acute (13) DVT (deep venous thrombosis) Status: Acute (14) DVT prophylaxis Status: Acute (15) Dilated cardiomyopathy Status: Acute (16) Dvt femoral (deep venous thrombosis) Status: Acute (17) Dyspnea Status: Acute (18) Edema extremities Status: Acute (19) Hemorrhage of arteriovenous fistula Status: Acute (20) Hip fracture Status: Acute (21) Hyperglycemia Status: Acute (22) Hyperkalemia Status: Acute (23) Hypertension Status: Acute (24) Pleural effusion on left Status: Acute (25) Postoperative anemia due to acute blood loss Status: Acute (26) Prophylactic measure Status: Acute (27) Renal failure Status: Acute (28) Renal insufficiency Status: Acute (29) Respiratory distress Status: Acute (30) Thrombocytopenia Status: Acute (31) Wheezing Status: Acute (32) Atrial fibrillation Status: Chronic (33) ESRD on dialysis Status: Chronic (34) History of atrial fibrillation Status: Chronic (35) Pleural thickening Status: Chronic - Assessment and Plan (Free Text) Plan: Patient examined. Permacath placement done under IV sedation in the right jugular vein. Patient better. Continue sevelamer.
[2017-06-07 20:40] VITALS: RESP 20
--- NOTE | 2017-06-07 23:06 | OP ---
PROCEDURE DATE: 06/07/2017 PREOPERATIVE DIAGNOSIS: Renal failure. POSTOPERATIVE DIAGNOSIS: Renal failure. PROCEDURE CARRIED OUT: Placement of Perm-A-Cath, right jugular vein with C-arm fluoroscopy and ultrasound-guided puncture with micropuncture technique. SURGEON: Rolly Herrera Jr., MD [employer]ISSAN SALES CONSULTANT: None. ANESTHESIOLOGIST: Mr. Acuña. INDICATIONS: The patient is a middle-aged male with renal insufficiency. Previous access in the left arm was clotted off. OPERATIVE FINDINGS: Catheter was inserted via the right jugular vein. Tip was located in superior vena cava-right atrial junction. PROCEDURE: The patient was given local anesthesia using ultrasound guidance and micropuncture technique, the right jugular vein was punctured. Under fluoroscopic control, guidewire was advanced centrally. A sheath dilator was passed over this, there was good return. The catheter was flushed. After it was positioned appropriately in the superior vena cava-right atrial junction and then brought out on the chest wall, flushed with heparinized saline with good return and good flow. The procedure was terminated. Blood loss was 5 mL. Operation carried out was Perm-A-Cath, right jugular vein with C-arm fluoroscopy and ultrasound-guided puncture. Rolly Herrera Jr., MD
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
[2017-06-07] MEDS ORDERED: Ergocalciferol 50,000 Intl Units Cap PO SCH (23:30)
[2017-06-08 02:02] VITALS: O2SAT 98
[2017-06-08 07:43] LABS: BASO % 0.4 % (0.0-2.0); EOS % 21.9 % (0.0-4.0); HEMATOCRIT 45.3 % (35.0-51.0); LYMPH % 21.3 % (20.0-40.0); MEAN CELL VOLUME 88.9 fL (80.0-94.0); MEAN CORPUSCULAR HEMOGLOBIN 29.7 pg (27.0-31.0); MEAN CORPUSCULAR HGB CONC 33.5 g/dL (33.0-37.0); MEAN PLATELET VOLUME 9.2 fL (7.2-11.7); MONO # 0.9 K/uL (0.0-0.8); MONO % 9.9 % (0.0-10.0); NRBC % 0.1 % (0.0-2.0); RED CELL DISTRIBUTION WIDTH 13.8 % (11.5-14.5); WHITE BLOOD COUNT 9.2 K/uL (4.8-10.8)
[2017-06-08] MEDS ORDERED: Multivitamin Vitamin B Complex (Nephro-Vite) Tab PO SCH (08:00)
[2017-06-08 08:02] LABS: PLATELET COUNT 104 K/uL (130-400)
[2017-06-08 08:12] LABS: ALB/GLOB RATIO 1.2 (1.0-2.1); BILIRUBIN,TOTAL 0.9 mg/dL (0.2-1.3); CALCIUM 7.7 mg/dl (8.6-10.4); MAGNESIUM 1.6 mg/dL (1.6-2.3); PHOSPHOROUS 3.8 mg/dL (2.5-4.5); POTASSIUM 4.8 mmol/L (3.6-5.2); TOTAL PROTEIN 7.6 g/dL (6.3-8.3)
[2017-06-08 08:36] VITALS: BP 128/78; PULSE 62; TEMP 97.7
--- NOTE | 2017-06-08 08:53 | CP.PCM.PN ---
<Alexandre Woodruff - Last Filed: 06/08/17 10:24> Subjective - Date & Time of Evaluation Date of Evaluation: 06/08/17 Time of Evaluation: 08:53 - Subjective Subjective: PGY2 Note for Dr. Cullen Espino; all management as per Dr. Cullen Espino During exam the patient expressed wishes to sign out AMA; the patient was warned of all complications of leaving AMA such as , coma, cardiorespitory collapse, bleeding AVF/graft, inability to get to dialysis etc and the patient still desires to leave. AMA signed and in chart. Translation provided by myself in Egyptian. Objective - Vital Signs/Intake and Output Vital Signs (last 24 hours): Temp Pulse Resp BP Pulse Ox 97.7 F 62 20 128/78 98 06/08/17 08:35 06/08/17 08:35 06/08/17 08:35 06/08/17 08:35 06/08/17 08:35 Intake and Output: 06/08/17 06/08/17 06:59 18:59 Intake Total 360 Output Total 300 Balance 60 - Medications Medications: Current Medications Ergocalciferol (Drisdol 50,000 Intl Units Cap) 1 cap PO Q7D [facility] Acetaminophen (Ofirmev) 100 mls @ 400 mls/hr IV Q6 PRN PRN Reason: Pain, moderate (4-7) Stop: 06/08/17 11:59 Pantoprazole Sodium (Protonix Ec Tab) 40 mg PO DAILY [facility] Last Admin: 06/07/17 13:59 Dose: 40 mg Sevelamer Carbonate (Renvela) 800 mg PO TID [facility] Last Admin: 06/07/17 18:39 Dose: Not Given Vitamin B Complex/Vit C/Folic Acid (Nephro-Robyn) 1 tab PO 0800 [facility] - Labs Labs: 06/08/17 07:14 06/08/17 07:14 - Constitutional Appears: Non-toxic - Head Exam Additional comments: patient would not allow me to do a full physical exam - Eye Exam Eye Exam: Normal appearance - Neurological Exam Neurological Exam: Alert, Awake, Oriented x3 - Psychiatric Exam Psychiatric exam: Normal Affect - Skin Skin Exam: Warm Assessment and Plan - Assessment and Plan (Free Text) Assessment: 67M s/p brachial-brachial forearm loop AV graft in November 2015 with possible clotted AV graft. Possible Clotted AV Graft 06/08: Patient has permacath today; patient will need new permanent access site for future dialysis 06/07: Pending Permacath placement today, patient NPO. Will evaluate AV graft as well. Surgery consult, Dr. Herrera, f/u recs ESRD with Dialysis 06/08: c/w T/Th/S schedule dialysis 06/07: Pending Permacath placement today, patient NPO Continue home medication: [facility] consulted, Dr. 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 He has a history of non- compliance and leaving the hospital AMA. He was previously on Lopressor and Coumadin, however states he has not taken these medications for several months. patient previously treated by Dr. Alan previously on Lopressor 25mg PO qD previously due to HD, patient needed Coumadin for anti coagulation with goal INR of 2-3. Cardiology consult, Dr. Burnham, f/u recs Prophylaxis SCDs Protonix 40mg PO qD The patient signed out AMA AMA form in chart All management as per Dr. Cullen Espino <Ronnell Espino S - Last Filed: 06/08/17 16:50> Objective - Vital Signs/Intake and Output Vital Signs (last 24 hours): Temp Pulse Resp BP Pulse Ox 97.7 F 62 20 128/78 98 06/08/17 08:35 06/08/17 08:35 06/08/17 08:35 06/08/17 08:35 06/08/17 08:35 Intake and Output: 06/08/17 06/08/17 06:59 18:59 Intake Total 360 Output Total 300 Balance 60 - Labs Labs: 06/08/17 07:14 06/08/17 07:14 Assessment and Plan (1) AV fistula occlusion Status: Acute (2) Acute chest pain Status: Acute (3) Gzzyx-[id number]-[id number] renal failure Status: Acute (4) Anemia Status: Acute (5) Atrial fibrillation with RVR Status: Acute (6) Atrial flutter with rapid ventricular response Status: Acute (7) Cellulitis Status: Acute (8) Cellulitis of hand, left Status: Acute (9) Chest discomfort Status: Acute (10) Chest pain Status: Acute (11) Chest pain Status: Acute (12) Coagulopathy Status: Acute (13) DVT (deep venous thrombosis) Status: Acute (14) DVT prophylaxis Status: Acute (15) Dilated cardiomyopathy Status: Acute (16) Dvt femoral (deep venous thrombosis) Status: Acute (17) Dyspnea Status: Acute (18) Edema extremities Status: Acute (19) Hemorrhage of arteriovenous fistula Status: Acute (20) Hip fracture Status: Acute (21) Hyperglycemia Status: Acute (22) Hyperkalemia Status: Acute (23) Hypertension Status: Acute (24) Pleural effusion on left Status: Acute (25) Postoperative anemia due to acute blood loss Status: Acute (26) Prophylactic measure Status: Acute (27) Renal failure Status: Acute (28) Renal insufficiency Status: Acute (29) Respiratory distress Status: Acute (30) Thrombocytopenia Status: Acute (31) Wheezing Status: Acute (32) Atrial fibrillation Status: Chronic (33) ESRD on dialysis Status: Chronic (34) History of atrial fibrillation Status: Chronic (35) Pleural thickening Status: Chronic Attending/Attestation - Attestation I have personally seen and examined this patient.: Yes I have fully participated in the care of the patient.: Yes I have reviewed all pertinent clinical information, including history, physical exam and plan: Yes Notes (Text): Patient examined. Patient better. Continue sevelamer.
[2017-06-08 09:19] LABS: EOSINOPHIL 22 % (0-4); NEUTROPHIL 59 % (50-75); TOTAL CELLS COUNTED 100
[2017-06-08] MEDS: Pantoprazole 40 mg EC Tab PO SCH (09:58)
--- NOTE | 2017-06-08 10:40 | CARD ---
APPROVED REPORT EKG Measurement Heart [id number] <Conclusion> Normal sinus rhythm Possible Left atrial enlargement Left ventricular hypertrophy Marked T wave abnormality, considerRepolarization abnormality Abnormal ECG
[2017-06-09] MEDS ORDERED: Ergocalciferol 50,000 Intl Units Cap PO SCH (10:00)
--- NOTE | 2017-06-09 11:10 | RAD ---
PROCEDURE: Intraoperative Fluoroscopy. HISTORY: RENAL FAILURE FINDINGS: Fluoroscopic assistance was provided for tunneled central venous dialysis catheter deployment. Please refer to the operative report utilized to deliver total 4.35 mGy.
== END 2017-06-08 11:00 | disposition left against medical advice (07) | DRG 314 ==
LOC: C.ER 11:53 → C.3T 14:00
PROVIDERS: ADMIT Internal Medicine Nephrology; ATTEND Internal Medicine Nephrology
PROC: B5181ZA Fluoroscopy of Superior Vena Cava using Low Osmolar Contrast, Guidance (ICD-10-PCS; 2017-06-07)
PROC: 5A1D70Z Performance of Urinary Filtration, Intermittent, Less than 6 Hours Per Day (ICD-10-PCS; 2017-06-07)
PROC: 02HV33Z Insertion of Infusion Device into Superior Vena Cava, Percutaneous Approach (ICD-10-PCS; principal; 2017-06-07 13:45)
DX: T82.838A Hemorrhage due to vascular prosthetic devices, implants and grafts, initial encounter (principal); N18.6 End stage renal disease; I13.2 Hypertensive heart and chronic kidney disease with heart failure and with stage 5 chronic kidney disease, or end stage renal disease; I42.0 Dilated cardiomyopathy; E87.5 Hyperkalemia; I48.91 Unspecified atrial fibrillation; I50.9 Heart failure, unspecified; D63.1 Anemia in chronic kidney disease; Y84.1 Kidney dialysis as the cause of abnormal reaction of the patient, or of later complication, without mention of misadventure at the time of the procedure; Z91.19 Patient's noncompliance with other medical treatment and regimen; Z86.718 Personal history of other venous thrombosis and embolism; Z87.891 Personal history of nicotine dependence; Z99.2 Dependence on renal dialysis

== ENCOUNTER 2017-08-30 08:30 | Day surgery (SDC) | payer MEDICARE ==
[2017-08-23 09:05] VITALS: BMI 23.3
[2017-08-30] MEDS ORDERED: HEPARIN-NS 5,000 UNITS/500 ML 5,000 UNIT/500 ML BAG IV ONE (08:54)
[2017-08-30] MEDS ORDERED: Iohexol 240 200 ML ONE (08:55)
[2017-08-30] MEDS ORDERED: ceFAZolin IV 1 gm in Dextrose 1 GM/50 ML BAG IVPB ONE (09:03)
[2017-08-30] MEDS ORDERED: Midazolam 2 MG/2 ML VIAL ONE (09:16)
[2017-08-30] MEDS ORDERED: Propofol 10 mg/ml Inj (20 ML) ONE (09:16)
[2017-08-30] MEDS ORDERED: Lidocaine Hydrochloride 5 ML INJ ONE (09:17)
[2017-08-30] MEDS ORDERED: Sodium Chloride 0.9% 1,000 ML IV ONE (09:45)
[2017-08-30 09:46] LABS: CALCIUM 8.8 mg/dl (8.6-10.4)
[2017-08-30] MEDS ORDERED: Lidocaine 1% Inj (20ml) ONE (10:10)
[2017-08-30] MEDS ORDERED: HYDROmorphone 0.5 mg/0.5 ml ISec IVP PRN (11:46)
[2017-08-30] MEDS ORDERED: Oxycodone/Acetaminophen 5/325 mg Tab PO PRN (11:47)
--- NOTE | 2017-08-30 11:47 | PCM.SURG1 ---
Surgeon's Initial Post Op Note - Surgeon's Notes Surgeon: Dr. Herrera Mexican Food Machine Tender: Dr. Muller, PGY-1 Type of Anesthesia: General Endo Pre-Operative Diagnosis: End Stage Renal Disease Requiring Dialysis, Failed AVF of LUE Operative Findings: see op report Post-Operative Diagnosis: End Stage Renal Disease Requiring Dialysis, Failed AVF of LUE Operation Performed: Left Arm Shunt with Hybrid Graft Specimen/Specimens Removed: None Estimated Blood Loss: EBL {In ML}: 100 Blood Products Given: N/A Drains Used: No Drains Date of Surgery/Procedure: 08/30/17 Time of Surgery/Procedure: 11:46
[2017-08-30] MEDS ORDERED: Sodium Chloride 0.9% 1,000 ML IV SCH (12:00)
[2017-08-30 12:09] VITALS: TEMP 97
[2017-08-30 12:14] VITALS: PULSE 62; O2SAT 98
[2017-08-30 12:47] VITALS: BP 118/62; RESP 16
--- NOTE | 2017-08-30 16:33 | RAD ---
PROCEDURE: Intraoperative Fluoroscopy. HISTORY: END STAGE RENAL DISEASE FINDINGS: Fluoroscopic assistance was provided. 45.4 seconds fluoroscopy time utilized during this procedure. Radiation dose = 0.28135 mGy. Please refer to the operative report from [facility].
--- NOTE | 2017-08-30 21:04 | OP ---
PROCEDURE DATE: 08/30/2017 PREOPERATIVE DIAGNOSIS: Renal failure. POSTOPERATIVE DIAGNOSIS: Renal failure. PROCEDURE CARRIED OUT: Placement of hybrid 6 mm AV shunt, left upper arm. SURGEON: Rolly Herrera Jr., M.D. ANTIQUE JEWELRY REPAIRER: Dr. Muller. ANESTHESIOLOGIST: Mr. Grayson Cabrera. ANESTHESIA: Local with sedation. INDICATIONS: The patient is a 67-year-old male with renal insufficiency, requires dialysis, had previously forearm catheter, a forearm shunt which has occluded. OPERATIVE FINDINGS: At the end of the procedure, we had a palpable thrill and a palpable pulse at the wrist. The rest of the intraoperative findings were unremarkable. DESCRIPTION OF PROCEDURE: The patient was given local anesthesia by infiltration. The artery was dissected free at the elbow above the crease, and using ultrasound guidance, we were above the previously placed stents, we then made a small incision in the axilla and punctured the brachial vein. We then deployed a micropuncture wire here, up-sized this to the appropriate wire, then deployed the venous end of 6 mm x 8 mm Hybrid shunt, deployed this in the appropriate location and ballooned it once it was in the proper tract. We then carried out the arterial anastomosis using loupe magnification and heparin anticoagulation. At the end of this, we had good flow to the hand and we had a good flow for the graft. The wounds were then closed with 5-0 nylon sutures. Blood loss for the procedure was approximately 100 mL, and the operation carried out was placement of hybrid shunt in the left upper arm. The initial film showed the partial deployment of the stent at the venous anastomosis, this was subsequently ballooned with an 8 mm x 5 cm balloon with excellent cosmetic results. Rolly Herrera Jr., MD
== END 2017-08-30 13:11 | disposition home or self-care (01) ==
LOC: C.SDS 08:30
PROVIDERS: ATTEND Surgery Vascular Surgery
DX: N18.6 End stage renal disease (principal)
CPT/HCPCS: 36415; 36830; 80048; 82948; J0690; J1644; J2250; J2704; J3010; J7040

== ENCOUNTER 2017-09-15 12:48 | Observation (INO) | payer MEDICARE ==
[2017-09-15 12:51] VITALS: PULSE 136; BMI 23.3
[2017-09-15 13:41] LABS: BASO # 0.1 K/uL (0.0-0.2); BASO % 0.8 % (0.0-2.0); EOS # 1.6 K/uL (0.0-0.7); EOS % 19.1 % (0.0-4.0); HEMOGLOBIN 12.6 g/dL (12.0-18.0); LYMPH # 1.4 K/uL (1.0-4.3); LYMPH % 16.5 % (20.0-40.0); MEAN CELL VOLUME 87.5 fL (80.0-94.0); MEAN CORPUSCULAR HEMOGLOBIN 29.4 pg (27.0-31.0); MEAN CORPUSCULAR HGB CONC 33.6 g/dL (33.0-37.0); MEAN PLATELET VOLUME 8.3 fL (7.2-11.7); MONO # 0.9 K/uL (0.0-0.8); MONO % 11.3 % (0.0-10.0); NEUT # 4.3 K/uL (1.8-7.0); NEUT % 52.3 % (50.0-75.0); RBC 4.28 Mil/uL (4.40-5.90); RED CELL DISTRIBUTION WIDTH 15.7 % (11.5-14.5); WHITE BLOOD COUNT 8.3 K/uL (4.8-10.8)
[2017-09-15 13:50] LABS: PROTHROMBIN TIME 11.2 SECONDS (9.7-12.2)
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
[2017-09-15 14:06] LABS: CK-MB 4.59 ng/mL (0.0-3.38); TROPONIN I 0.049 ng/mL (0.00-0.120)
[2017-09-15 14:13] LABS: ALB/GLOB RATIO 1.2 (1.0-2.1); CALCIUM 8.6 mg/dl (8.6-10.4)
--- NOTE | 2017-09-15 14:56 | RAD ---
HISTORY: CP, SOB COMPARISON: 08/23/2017 FINDINGS: LUNGS: Opacity throughout lower left abilio thorax, likely left lower lobe. Silhouetting of left hemidiaphragm. No right-sided infiltrate. PLEURA: Possible small left pleural effusion. No right pleural effusion. No pneumothorax. CARDIOVASCULAR: Normal heart size. Right tunneled central venous dialysis catheter. No congestive change. OSSEOUS STRUCTURES: No significant abnormalities. VISUALIZED UPPER ABDOMEN: Normal. OTHER FINDINGS: None. IMPRESSION: Left lower lobe infiltrate. Possible small left pleural effusion. Follow-up advised.
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
[2017-09-15 19:48] LABS: CK-MB 3.74 ng/mL (0.0-3.38); TROPONIN I 0.052 ng/mL (0.00-0.120)
[2017-09-16 02:39] LABS: CK-MB 2.7 ng/mL (0.0-3.38); TROPONIN I 0.049 ng/mL (0.00-0.120)
[2017-09-16 07:21] LABS: BASO # 0.1 K/uL (0.0-0.2); BASO % 0.9 % (0.0-2.0); EOS # 1.4 K/uL (0.0-0.7); EOS % 25.1 % (0.0-4.0); HEMOGLOBIN 11.9 g/dL (12.0-18.0); LYMPH # 1.2 K/uL (1.0-4.3); LYMPH % 22.3 % (20.0-40.0); MEAN CELL VOLUME 86.2 fL (80.0-94.0); MEAN CORPUSCULAR HEMOGLOBIN 29.2 pg (27.0-31.0); MEAN CORPUSCULAR HGB CONC 33.9 g/dL (33.0-37.0); MEAN PLATELET VOLUME 8.3 fL (7.2-11.7); MONO # 0.6 K/uL (0.0-0.8); MONO % 10.8 % (0.0-10.0); NEUT # 2.2 K/uL (1.8-7.0); NEUT % 40.9 % (50.0-75.0); PLATELET COUNT 124 K/uL (130-400); RBC 4.08 Mil/uL (4.40-5.90); RED CELL DISTRIBUTION WIDTH 15.4 % (11.5-14.5); WHITE BLOOD COUNT 5.5 K/uL (4.8-10.8)
[2017-09-16 08:03] LABS: ALB/GLOB RATIO 1.1 (1.0-2.1); ALBUMIN 3.5 g/dL (3.5-5.0); CALCIUM 7.9 mg/dl (8.6-10.4)
--- NOTE | 2017-09-16 08:55 | CP.PCM.DIS ---
Provider - Provider Date of Admission: 09/15/17 14:25 Attending physician: Rolly Espino MD Primary care physician: Dr. Raheem Aguero Consults: Nephrology Dr. Wagner Time Spent in preparation of Discharge (in minutes): 40 Hospital Course - Lab Results Lab Results: Most Recent Lab Values WBC 5.5 K/uL (4.8-10.8) 09/16/17 07:15 RBC 4.08 Mil/uL (4.40-5.90) L 09/16/17 07:15 Hgb 11.9 g/dL (12.0-18.0) L 09/16/17 07:15 Hct 35.2 % (35.0-51.0) 09/16/17 07:15 MCV 86.2 fL (80.0-94.0) 09/16/17 07:15 MCH 29.2 pg (27.0-31.0) 09/16/17 07:15 MCHC 33.9 g/dL (33.0-37.0) 09/16/17 07:15 RDW 15.4 % (11.5-14.5) H 09/16/17 07:15 Plt Count 124 K/uL (130-400) L D 09/16/17 07:15 MPV 8.3 fL (7.2-11.7) 09/16/17 07:15 Neut % (Auto) 40.9 % (50.0-75.0) L 09/16/17 07:15 Lymph % (Auto) 22.3 % (20.0-40.0) 09/16/17 07:15 [place] % (Auto) 10.8 % (0.0-10.0) H 09/16/17 07:15 Eos % (Auto) 25.1 % (0.0-4.0) H 09/16/17 07:15 Baso % (Auto) 0.9 % (0.0-2.0) 09/16/17 07:15 Neut # (Auto) 2.2 K/uL (1.8-7.0) 09/16/17 07:15 Lymph # (Auto) 1.2 K/uL (1.0-4.3) 09/16/17 07:15 [place] # (Auto) 0.6 K/uL (0.0-0.8) 09/16/17 07:15 Eos # (Auto) 1.4 K/uL (0.0-0.7) H 09/16/17 07:15 Baso # (Auto) 0.1 K/uL (0.0-0.2) 09/16/17 07:15 PT 11.2 SECONDS (9.7-12.2) 09/15/17 13:34 INR 1.0 09/15/17 13:34 APTT 32 SECONDS (21-34) 09/15/17 13:34 Sodium 140 mmol/L (132-148) 09/16/17 07:15 Potassium 4.2 mmol/L (3.6-5.2) 09/16/17 07:15 Chloride 99 mmol/L (98-107) 09/16/17 07:15 Carbon Dioxide 27 mmol/L (22-30) 09/16/17 07:15 Anion Gap 19 (10-20) 09/16/17 07:15 BUN 35 mg/dL (9-20) H 09/16/17 07:15 Creatinine 3.2 mg/dL (0.8-1.5) H 09/16/17 07:15 Est GFR ( Amer) 24 09/16/17 07:15 Est GFR (Non-Af Amer) 19 09/16/17 07:15 Random Glucose 83 mg/dL (75-110) 09/16/17 07:15 Calcium 7.9 mg/dl (8.6-10.4) L 09/16/17 07:15 Total Bilirubin 0.4 mg/dL (0.2-1.3) 09/16/17 07:15 AST 50 U/L (17-59) 09/16/17 07:15 ALT 52 U/L (21-72) 09/16/17 07:15 Alkaline Phosphatase 71 U/L (38-126) 09/16/17 07:15 Total Creatine Kinase 89 U/L (55-170) 09/16/17 01:47 CK-MB (Mass) 2.70 ng/mL (0.0-3.38) 09/16/17 01:47 Troponin I 0.0490 ng/mL (0.00-0.120) 09/16/17 01:47 NT-Pro-B Natriuret Pep 6080 pg/mL (0-900) H 09/15/17 13:34 Total Protein 6.5 g/dL (6.3-8.3) 09/16/17 07:15 Albumin 3.5 g/dL (3.5-5.0) 09/16/17 07:15 Globulin 3.0 gm/dL (2.2-3.9) 09/16/17 07:15 Albumin/Globulin Ratio 1.1 (1.0-2.1) 09/16/17 07:15 - Hospital Course Hospital Course: Hospitalist Discharge Summary Patient was seen and examined at 8:40 AM 09/16/17 Bed 658 A. Patient is a 67 y/o male with past medical history of ESRD on dialysis (at [facility] ), HTN, A.fib, HLD, Bilateral DVT, CHF, Cirrhosis, and Gout, who presented to the ED with complaint of chest pain and shortness of breath. Symptoms started after he missed his HD on . Troponins were negative x 3. EKG is unchanged from August 2017. Chest X Ray showed the possibility of LLL Infiltrate and faint inspiratory crackles were heard initially on exam in ER however NO antibiotics were started as this finding on Chest Ray and on exam was felt was secondary to fluid in the lungs. Patient received HD on night of 09/15/17. Exam this morning 09/16/17 did NOT indicate any inspiratory rales, patient's presenting symptoms have resolved, vitals are stable and therefore patient will be discharged to home. Please note that extensive conversation took place with the patient at the time of initial exam in ER 09/15/17 concerning his history of HTN, A. fib, HLD, Bilateral DVT, CHF , Cirrhosis, and Gout for which patient stated he decided he did not want to be treated for these issues understanding the risks of not doing so. Upon FULL ROS NO dysphagia/odynopahgia NO soreness in throat NO cough NO sinus/nasal congestion NO fever/chills NO muscle aches/pains NO joint pain NO chest pain/palpations NO SOB NO abdominal pain NO n/v/d/c NO burning pain with urination NO CHAPA NO lightheadedness/dizziness NO paresthesias Exam: General: AAOX3, NAD HEENT: NCA, EOMI, PERRLA, NO cervical/supraclavicular/submandibular lymphadenopathy, NO pharyngeal erythema/exudate, Nasal Turbinates are nonerythematous/nonedematous, Oral Mucosa is moist Cardio: NS1 and NS2, NO M/R/G Resp: CTA B/L, NO R/R/W GI: BSx4, Soft, NT, NO HSM, NO guarding/rebound tenderness Ext: Pulses are strong and equal, Capillary Refill is 2 seconds, NO edema, Left Arm Graft with + Thrill Neuro: CN II through XII are grossly intact The following instructions were explained to the patient and a copy needs to be provided to him upon discharge: 1). Please follow your regular schedule for HD at [facility] on Monday, , Monday. 2). You stated you had enough of your only home medication of Renvela. Please continue this as directed by your Kidney Physician Dr. Lopez. 3). Follow up with Dr. Lopez as directed by him. 4). Follow up with your primary care physician Dr. Manish Aguero as directed by him. 5). You have a really good sense of humor. Please take care and be well. Rolly Espino D.O. Discharge Exam - Head Exam Head Exam: ATRAUMATIC, NORMAL INSPECTION, NORMOCEPHALIC Discharge Plan - Follow Up Plan Condition: FAIR Disposition: HOME/ ROUTINE
[2017-09-16 09:27] LABS: EOSINOPHIL 27 % (0-4); LYMPHOCYTE 22 % (20-40); MONOCYTE 10 % (0-10); NEUTROPHIL 41 % (50-75); PLATELET ESTIMATE SLIGHTLY DECREASED (NORMAL); TOTAL CELLS COUNTED 100
[2017-09-16 09:28] LABS: ANISOCYTOSIS SLIGHT; HYPOCHROMIC SLIGHT; LARGE PLATELETS PRESENT; OVALOCYTES SLIGHT; POIKILOCYTOSIS SLIGHT; POLYCHROMIC SLIGHT; TOXIC GRANULATION PRESENT
[2017-09-16] MEDS ORDERED: Pantoprazole 40 mg EC Tab PO SCH (10:00)
[2017-09-16 10:30] VITALS: RESP 18
[2017-09-16 13:02] VITALS: BP 126/74; PULSE 56; TEMP 97.4; O2SAT 100
--- NOTE | 2017-09-18 16:42 | CARD ---
APPROVED REPORT EKG Measurement Heart [id number] HI [id number] <Conclusion> Sinus bradycardia Minimal voltage criteria for LVH, may be normal variant Marked T wave abnormality, consider anterolateral ischemia Abnormal ECG
--- NOTE | 2017-09-18 20:29 | CARD ---
APPROVED REPORT EKG Measurement Heart [id number] CO [id number] <Conclusion> Normal sinus rhythm Left atrial enlargement Left ventricular hypertrophy Marked T wave abnormality, consider anterolateral ischemia Prolonged QT Abnormal ECG
== END 2017-09-16 13:54 | disposition home or self-care (01) ==
LOC: C.ER 12:48 → C.9E 14:25 → C.6T 14:51
PROVIDERS: ADMIT Family Medicine; ATTEND Family Medicine
DX: R07.9 Chest pain, unspecified (principal); Z91.15 Patient's noncompliance with renal dialysis; I13.2 Hypertensive heart and chronic kidney disease with heart failure and with stage 5 chronic kidney disease, or end stage renal disease; Z99.2 Dependence on renal dialysis; N18.6 End stage renal disease; I50.9 Heart failure, unspecified; I48.91 Unspecified atrial fibrillation; E78.5 Hyperlipidemia, unspecified; D64.9 Anemia, unspecified; Z86.718 Personal history of other venous thrombosis and embolism; Z90.5 Acquired absence of kidney; Z88.5 Allergy status to narcotic agent; Z79.899 Other long term (current) drug therapy; Z87.891 Personal history of nicotine dependence; Z66 Do not resuscitate; K74.60 Unspecified cirrhosis of liver; M10.9 Gout, unspecified
CPT/HCPCS: 36415; 71045; 80053; 83880; 84484; 85025; 85610; 85730; 90970; 99285; G0257; G0378; J1644

== ENCOUNTER 2017-10-04 03:22 | Inpatient (IN) | payer MEDICARE, BC ==
[2017-10-04 03:22] VITALS: BMI 23.3
[2017-10-04] MEDS ORDERED: cefTRIAXone 1 gm in Water For Injection 2.1 ML IVPB STA (03:51)
[2017-10-04] MEDS ORDERED: Vancomycin 1 gm/NS 200 ml 1 GM/200 ML BAG IVPB STA (03:55)
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
[2017-10-04] MEDS ORDERED: cefTRIAXone IV 1 gm in Dextros 50 ML IVPB STA (04:00)
[2017-10-04] MEDS ORDERED: cefTRIAXone IV 1 gm in Dextros 50 ML IVPB ONE (04:21)
[2017-10-04 04:23] LABS: BASO % 0.4 % (0.0-2.0); EOS # 1.3 K/uL (0.0-0.7); HEMOGLOBIN 13.1 g/dL (12.0-18.0); LYMPH # 0.8 K/uL (1.0-4.3); LYMPH % 7.5 % (20.0-40.0); MEAN CELL VOLUME 88.3 fL (80.0-94.0); MEAN CORPUSCULAR HEMOGLOBIN 29.9 pg (27.0-31.0); MEAN CORPUSCULAR HGB CONC 33.8 g/dL (33.0-37.0); MEAN PLATELET VOLUME 8.5 fL (7.2-11.7); MONO # 0.6 K/uL (0.0-0.8); MONO % 5.9 % (0.0-10.0); NEUT # 7.5 K/uL (1.8-7.0); NEUT % 73.2 % (50.0-75.0); NRBC % 0.1 % (0.0-2.0); PLATELET COUNT 52 K/uL (130-400); RBC 4.39 Mil/uL (4.40-5.90); RED CELL DISTRIBUTION WIDTH 16.5 % (11.5-14.5); WHITE BLOOD COUNT 10.2 K/uL (4.8-10.8)
[2017-10-04] MEDS ORDERED: Sodium Chloride 0.9% 500 ML IV ONE ×2 (04:53)
[2017-10-04 05:13] LABS: ALB/GLOB RATIO 1.2 (1.0-2.1); ALBUMIN 3.9 g/dL (3.5-5.0); CALCIUM 8.4 mg/dl (8.6-10.4)
[2017-10-04 05:28] LABS: ANISOCYTOSIS SLIGHT; EOSINOPHIL 12 % (0-4); LYMPHOCYTE 6 % (20-40); MONOCYTE 4 % (0-10); NEUTROPHIL 78 % (50-75); PLATELET ESTIMATE DECREASED (NORMAL); TOTAL CELLS COUNTED 100
--- NOTE | 2017-10-04 07:16 | RAD ---
Chest x-ray single frontal view History: Shortness of breath. Comparison: 09/15/2017 Findings: Patchy consolidative changes seen in the lateral aspect of the left mid to lower lung zone. Venous congestion. Right hilar prominence. Small nodular density at the right costophrenic angle. Biapical pleural thickening with upper lobe granulomatous changes. Heart size within normal limits. Right central venous catheter tip extending into the right atrium. Impression: Patchy consolidative changes seen in the lateral aspect of the left mid to lower lung zone. Venous congestion. Right hilar prominence. Small nodular density at the right costophrenic angle. Biapical pleural thickening with upper lobe granulomatous changes.
[2017-10-04] MEDS ORDERED: Azithromycin 500 MG in Sodium Chloride 0.9% 250 ML IVPB STA (08:02)
[2017-10-04] MEDS: guaiFENesin 600 mg ER Tab PO SCH ×2 (10:25→17:31)
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
[2017-10-04 11:20] LABS: CK-MB 0.75 ng/mL (0.0-3.38); TROPONIN I 0.063 ng/mL (0.00-0.120)
[2017-10-04] MEDS: Albuterol-Ipratrop 3 mg / 0.5 (3 ml) UD INH SCH ×2 (14:00→19:46)
--- NOTE | 2017-10-04 19:22 | PCM.RRT ---
DRAW BENCH OPERATOR HELPER Nurses Assessment - Situation Date: 10/04/17 Time DRAW BENCH OPERATOR HELPER was called: 09:30 DRAW BENCH OPERATOR HELPER Responder Arrival Time:: 09:33 DRAW BENCH OPERATOR HELPER Location:: Med/Oncology Room Number: 369A DRAW BENCH OPERATOR HELPER Reason for Call: Chest Pain DRAW BENCH OPERATOR HELPER Called By: RN - IV IV Inserted during DRAW BENCH OPERATOR HELPER?: Yes IV Fluids Initiated During DRAW BENCH OPERATOR HELPER?: NO, only blood works - Respiratory DRAW BENCH OPERATOR HELPER Delivery Method: Nasal Cannula @L/min Oxygen Flow Rate: 2 Received Nebulizer Treatments: No Was the Patient Ventilated with Bag/Mask 100% O2?: No Secretions Suctioned?: No Was the Patient Intubated?: No Was the Patient Placed on a Ventilator?: No - Medication Medications Administered During DRAW BENCH OPERATOR HELPER: none - Diagnostic Test Ordered EKG: Yes Chest X-Ray: No CT Scan: No - Stat Labs Ordered DRAW BENCH OPERATOR HELPER Stat Labs Ordered: TROPONIN DRAW BENCH OPERATOR HELPER Other Labs Ordered: EUFEMIA,Seratonin Relay Assay,Heparin Induced Thrombocyt CPR started during DRAW BENCH OPERATOR HELPER?: No - Vital Signs Vital Signs: Rapid Response Vital Sign Blood Pressure 113/67 Pulse Rate 94 Respiratory Rate 22 Temperature 98 F Oxygen Saturation 97 - Time DRAW BENCH OPERATOR HELPER Ended Time DRAW BENCH OPERATOR HELPER Ended: 10:00 - Vital Signs at end of DRAW BENCH OPERATOR HELPER Vital Signs at end of DRAW BENCH OPERATOR HELPER: Rapid Response End Vital Sign Blood Pressure 120/74 Pulse Rate 91 Respiratory Rate 20 Temperature 98 F O2 Sat by Pulse Oximetry 95 - Recommendations Notifications: Attending Physician I.Reason for DRAW BENCH OPERATOR HELPER - A) Acute Change in Patient: (Select all that apply): Chest Pain - Neurological Status (Select all that apply): Alert, Responsive, Oriented, Verbal, Follows Commands - Respiratory Oxygen Delivery Method: Nasal Cannula @L/min Oxygen Flow Rate: 2 - Constitutional Appears: Non-toxic, No Acute Distress - Head Head Exam: ATRAUMATIC, NORMOCEPHALIC - Eyes Eye Exam: EOMI, Normal appearance - Respiratory Exam Respiratory Exam: Rales (Left base), NORMAL BREATHING PATTERN. absent: Accessory Muscle Use, Rhonchi, Wheezes, Respiratory Distress - Cardiovascular Exam Cardiovascular Exam: REGULAR RHYTHM, +S1, +S2 Plan - Assessment of Findings&Treatment Plan Upon entering the room, the patient is resting comfortably in bed. He is speaking in full sentences in no acute distress. The nurse call a DRAW BENCH OPERATOR HELPER because of the complaint of chest pain. The patient was recently brought up to the floor from the emergency room with a complaint of chest pain. He was found to have a LLL pneumonia. The pain the patient is describing is pleuric in nature. The pain is located midline and is worsening with cough. EKG - NSR @ 90bpm, normal axis, LVH, flipped T waves in leads I, avL and V4-6 -- > this EKG is unchanged from previous EKG EUFEMIA - negative Patient was transferred to telemetry. Dr. Toth was notified.
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
[2017-10-05] MEDS: Albuterol-Ipratrop 3 mg / 0.5 (3 ml) UD INH SCH ×4 (01:51→19:25)
[2017-10-05] MEDS: Multivitamin Vitamin B Complex (Nephro-Vite) Tab PO SCH (08:27)
[2017-10-05] MEDS ORDERED: Azithromycin 500 MG in Sodium Chloride 0.9% 250 ML IVPB SCH (09:00)
[2017-10-05] MEDS ORDERED: Metoprolol 1 mg/ml Inj IVP ONE (09:49)
[2017-10-05 10:15] LABS: BASO % 0.3 % (0.0-2.0); EOS # 0.1 K/uL (0.0-0.7); EOS % 1.7 % (0.0-4.0); HEMOGLOBIN 11.3 g/dL (12.0-18.0); LYMPH # 0.4 K/uL (1.0-4.3); LYMPH % 5.2 % (20.0-40.0); MEAN CELL VOLUME 88.3 fL (80.0-94.0); MEAN CORPUSCULAR HEMOGLOBIN 29.1 pg (27.0-31.0); MEAN PLATELET VOLUME 8.5 fL (7.2-11.7); MONO # 0.7 K/uL (0.0-0.8); MONO % 9.2 % (0.0-10.0); NEUT # 6.7 K/uL (1.8-7.0); NEUT % 83.6 % (50.0-75.0); RBC 3.86 Mil/uL (4.40-5.90); RED CELL DISTRIBUTION WIDTH 16.5 % (11.5-14.5)
[2017-10-05 10:20] LABS: PLATELET COUNT 78 K/uL (130-400)
[2017-10-05] MEDS: Nitroglycerin 50mg in D5W 50 MG/250 ML BOTTLE IV SCH (10:26)
[2017-10-05 10:28] LABS: ALB/GLOB RATIO 1.1 (1.0-2.1); ALBUMIN 3.5 g/dL (3.5-5.0); CALCIUM 7.8 mg/dl (8.6-10.4)
[2017-10-05 10:30] LABS: INR 1.3; PROTHROMBIN TIME 15.2 SECONDS (9.7-12.2)
--- NOTE | 2017-10-05 10:34 | RAD ---
Chest x-ray single frontal view History: Chest pain. Comparison: 10/04/2017 Findings: Moderate venous congestion. Prominent patchy increased markings at both lung bases ; left greater than right. Small bilateral pleural effusions. Lines and tubes in stable position. Heart size within normal limits. Degenerative changes in the spine. Impression: Moderate venous congestion. Prominent patchy increased markings at both lung bases ; left greater than right. Small bilateral pleural effusions. Lines and tubes in stable position.
[2017-10-05 10:38] LABS: CK-MB 0.74 ng/mL (0.0-3.38); TROPONIN I 0.079 ng/mL (0.00-0.120)
[2017-10-05 10:44] LABS: ANISOCYTOSIS SLIGHT; BANDS 1 % (0-2); BASOPHIL 1 % (0-2); LYMPHOCYTE 5 % (20-40); MONOCYTE 10 % (0-10); NEUTROPHIL 83 % (50-75); PLATELET ESTIMATE DECREASED (NORMAL); TOTAL CELLS COUNTED 100
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
--- NOTE | 2017-10-05 11:47 | PCM.RRT ---
BRUSHER MACHINE Nurses Assessment - Situation Date: 10/05/17 Time BRUSHER MACHINE was called: 09:30 BRUSHER MACHINE Responder Arrival Time:: 09:35 BRUSHER MACHINE Location:: 3D Dialysis Room Number: 362 [id number] [employer]USHER MACHINE Reason for Call: Chest Pain, Tachycardia BRUSHER MACHINE Called By: RN - IV IV Inserted during BRUSHER MACHINE?: No - Respiratory BRUSHER MACHINE Delivery Method: Nasal Cannula @L/min Oxygen Flow Rate: 3 Received Nebulizer Treatments: No Was the Patient Ventilated with Bag/Mask 100% O2?: No Secretions Suctioned?: No Was the Patient Intubated?: No Was the Patient Placed on a Ventilator?: No - Medication Medications Administered During BRUSHER MACHINE: 10:00am-Amniodarone bolus 150 mg IV,10:05- Nitrostat 0.4mg SL,!0:05-Toradol 60 mg IVP,10:25 Tridil drip 5mcg/min. - Diagnostic Test Ordered EKG: Yes Chest X-Ray: Yes - Stat Labs Ordered BRUSHER MACHINE Stat Labs Ordered: CBC, PT/PTT, TROPONIN BRUSHER MACHINE Other Labs Ordered: CMP CPR started during BRUSHER MACHINE?: No - Vital Signs Vital Signs: Rapid Response Vital Sign Blood Pressure 100/53 Pulse Rate 159 Respiratory Rate 22 Temperature 97.5 F Oxygen Saturation 97 - Time BRUSHER MACHINE Ended Time BRUSHER MACHINE Ended: 10:30 - Vital Signs at end of BRUSHER MACHINE Vital Signs at end of BRUSHER MACHINE: Rapid Response End Vital Sign Blood Pressure 125/68 Pulse Rate 143 Respiratory Rate 20 Temperature 98.2 F O2 Sat by Pulse Oximetry 97 - Recommendations 5) BRUSHER MACHINE Level of Care Recommendations: Transfer to ICU Notifications: Attending Physician, Consultations, Family or Designated Caregiver (was unable to reach family) I.Reason for BRUSHER MACHINE - A) Acute Change in Patient: (Select all that apply): Staff member or family is worried about patient - Neurological Status (Select all that apply): Alert, Responsive, Oriented, Verbal, Follows Commands - Respiratory Oxygen Delivery Method: Nasal Cannula @L/min Oxygen Flow Rate: 3 - Constitutional Appears: In Acute Distress - Head Head Exam: ATRAUMATIC, NORMOCEPHALIC - Eyes Eye Exam: EOMI, Normal appearance - Respiratory Exam Respiratory Exam: Clear to Ausculation Bilateral. absent: Rales, Rhonchi, Wheezes - Cardiovascular Exam Cardiovascular Exam: Tachycardia, Irregular Rhythm, +S1, +S2 - GI/Abdominal Exam GI & Abdominal Exam: Soft, Normal Bowel Sounds. absent: Tenderness - Neurological Exam Neurological Exam: Alert, Awake, Oriented x3 - Extremities Exam Extremities Exam: absent: Tenderness Plan - Assessment of Findings&Treatment Plan BRUSHER MACHINE called in dialysis for this patient who was admitted due to fevers, chills, coughs with positive blood cultures for gram positive bacteremia. Patient had been receiving a dialysis session for about 20 minutes before he suddenly complained of chest pain. Along with the chest pain, patient was complaining of palpitations. Stat labs, EUFEMIA panel, EKG, and CXR were performed. 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 Admitting provider Dr. Toth was called and informed of the situation. Consults placed to Dr. Anderson and Dr. Amado. Antibiotics were changed and now include Vancomycin, Zosyn, and Cipro. Patient was given sublingual nitro and 60 mg of IV toradol for pain (since he has a documented morphine allergy). Nitro drip was also started prior to transferring to ICU. Attempted to notify family but was unable to reach them.
[2017-10-05] MEDS: Ciprofloxacin 400mg/200ml D5W 400 MG/200 ML BAG IVPB SCH ×2 (12:29→22:58)
[2017-10-05] MEDS: Piperacill/Tazo 2.25gm in Dex 2.25 GM/50 ML BAG IVPB SCH ×3 (12:30→22:06)
--- NOTE | 2017-10-05 14:58 | CARD ---
APPROVED REPORT EKG Measurement Heart [id number] <Conclusion> Normal sinus rhythm Biatrial enlargement ST & Marked T wave abnormality, consider anterolateral ischemia Abnormal ECG
--- NOTE | 2017-10-05 14:58 | CARD ---
APPROVED REPORT EKG Measurement Heart [id number] <Conclusion> Normal sinus rhythm Biatrial enlargement Left ventricular hypertrophy ST & Marked T wave abnormality, consider anterolateral ischemia Prolonged QT Abnormal ECG
[2017-10-05] MEDS ORDERED: Magnesium Sulfate 1 gm in D5W 1 GM/100 ML BAG IVPB ONE (15:16)
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
[2017-10-05] MEDS: guaiFENesin 600 mg ER Tab PO SCH ×3 (17:30→17:32)
--- NOTE | 2017-10-05 17:59 | CP.PCM.PN ---
Subjective - Date & Time of Evaluation Date of Evaluation: 10/05/17 Time of Evaluation: 15:00 - Subjective Subjective: SEEN ON RENAL F/U IN ICU DID NOT TOLERTE HIS HD TODAY HIS BP WAS LOW ALL PREVIOUS EMR REVIEWED LABS REVIEWED Objective - Vital Signs/Intake and Output Vital Signs (last 24 hours): Temp Pulse Resp BP Pulse Ox 98.9 F 120 H 20 93/56 L 100 10/05/17 12:00 10/05/17 15:30 10/05/17 15:30 10/05/17 15:16 10/05/17 15:30 Intake and Output: 10/05/17 10/05/17 06:59 18:59 Intake Total 340 761.5 Output Total 200 Balance 140 761.5 - Medications Medications: Current Medications Albuterol/Ipratropium (Duoneb 3 Mg/0.5 Mg (3 Ml) Ud) 3 ml INH RQ6 L[facility] Last Admin: 10/05/17 14:37 Dose: Not Given Guaifenesin (Mucinex La) 600 mg PO BID [facility] Last Admin: 10/05/17 17:32 Dose: 600 mg Vancomycin HCl 500 mg/ Sodium (Chloride) 100 mls @ 100 mls/hr IVPB TTS LUCIA PRN Reason: Protocol Last Admin: 10/05/17 12:36 Dose: 100 mls/hr Amiodarone HCl 900 mg/ (Dextrose) 500 mls @ 33.33 mls/hr IV .Q15H1M ONE; 1 MG/ MIN PRN Reason: Protocol Stop: 10/06/17 01:00 Last Admin: 10/05/17 13:33 Dose: 33.33 mls/hr Nitroglycerin/Dextrose (Nitroglycerin 50 Mg/250 Ml D5w) 50 mg in 250 mls @ 1.5 mls/hr IV .Q24H LUCIA; 5 MCG/MIN PRN Reason: Protocol Last Titration: 10/05/17 12:30 Dose: 0 mcg/min, 0 mls/hr Ciprofloxacin (Cipro 400mg/200ml Dsw) 400 mg in 200 mls @ 133 mls/hr IVPB Q12H [facility] PRN Reason: Protocol Last Admin: 10/05/17 12:29 Dose: 133 mls/hr Piperacillin Sod/Tazobactam Sod (Zosyn 2.25 Gm Iv Premix) 2.25 gm in 50 mls @ 100 mls/hr IVPB Q6H [facility] PRN Reason: Protocol Last Admin: 10/05/17 17:30 Dose: 100 mls/hr Nitroglycerin (Nitrostat Sl Tab) 0.4 mg SL Q5M PRN PRN Reason: chest pain Last Admin: 10/05/17 10:04 Dose: 0.4 mg Sevelamer Carbonate (Renvela) 800 mg PO TIDCC [facility] Last Admin: 10/05/17 17:30 Dose: 800 mg Vitamin B Complex/Vit C/Folic Acid (Nephro-Robyn) 1 tab PO 0800 [facility] Last Admin: 10/05/17 08:27 Dose: 1 tab - Labs Labs: 10/05/17 10:11 10/05/17 10:11 PT 15.2 SECONDS (9.7-12.2) H 10/05/17 10:11 INR 1.3 10/05/17 10:11 APTT 28 SECONDS (21-34) 10/05/17 10:11 Assessment and Plan - Assessment and Plan (Free Text) Assessment: ESRD ON HD T T S .. WILL ATTEMLT HD IN AM ANEMIA OF CKD .. H/H STABLE MMP P : HD IN AM C/O CURRENT MEDS
--- NOTE | 2017-10-05 18:08 | CP.PCM.PN ---
Subjective - Date & Time of Evaluation Date of Evaluation: 10/05/17 Time of Evaluation: 12:00 - Subjective Subjective: renal follow up note in icu did not toleratee HD today earlier as complained of chest pain no in ICU EXAM vitals reviewed s1s [id number] tachycardia notes bilateral air entry equa abd soft skin normal no jvd Asleep, wakes up on calling name, follows commands flat affect Assessment: critical Pneumonia, Chest pain, thrombocytopenia chest pain Hypertensive Chronic Kidney Disease (I12.0) End stage renal disease (N18.6) dependence on hemodialysis (Z99.2) (TTS) via AVG Anemia (D64.9), Hyperphosphatemia (E83.39), Secondary Hyperparathyroidism (E21.1 ), HTN (I12.0) Ex-smoker CHF, A. fib, history of DVT status post IVC filter, COPD, Mediastinal adenopathy Plan: did not tolerate hd today, lytes ok hold hd today, will asses tomorrow if stable clinically anemia: epo as needed Continue with phos binders monitor phos levels Continue with calcitriol BPcontrolled Glycemic control, Dialysis consistent diet Consider hematology evaluation for low platelet count. Objective - Vital Signs/Intake and Output Vital Signs (last 24 hours): Temp Pulse Resp BP Pulse Ox 98.9 F 120 H 20 93/56 L 100 10/05/17 12:00 10/05/17 15:30 10/05/17 15:30 10/05/17 15:16 10/05/17 15:30 Intake and Output: 10/05/17 10/05/17 06:59 18:59 Intake Total 340 761.5 Output Total 200 Balance 140 761.5 - Medications Medications: Current Medications Albuterol/Ipratropium (Duoneb 3 Mg/0.5 Mg (3 Ml) Ud) 3 ml INH RQ6 [facility] Last Admin: 10/05/17 14:37 Dose: Not Given Ergocalciferol (Drisdol 50,000 Intl Units Cap) 1 cap PO Q7D [facility] Guaifenesin (Mucinex La) 600 mg PO BID [facility] Last Admin: 10/05/17 17:32 Dose: 600 mg Vancomycin HCl 500 mg/ Sodium (Chloride) 100 mls @ 100 mls/hr IVPB TTS LUCIA PRN Reason: Protocol Last Admin: 10/05/17 12:36 Dose: 100 mls/hr Amiodarone HCl 900 mg/ (Dextrose) 500 mls @ 33.33 mls/hr IV .Q15H1M ONE; 1 MG/ MIN PRN Reason: Protocol Stop: 10/06/17 01:00 Last Admin: 10/05/17 13:33 Dose: 33.33 mls/hr Nitroglycerin/Dextrose (Nitroglycerin 50 Mg/250 Ml D5w) 50 mg in 250 mls @ 1.5 mls/hr IV .Q24H LUCIA; 5 MCG/MIN PRN Reason: Protocol Last Titration: 10/05/17 12:30 Dose: 0 mcg/min, 0 mls/hr Ciprofloxacin (Cipro 400mg/200ml Dsw) 400 mg in 200 mls @ 133 mls/hr IVPB Q12H [facility] PRN Reason: Protocol Last Admin: 10/05/17 12:29 Dose: 133 mls/hr Piperacillin Sod/Tazobactam Sod (Zosyn 2.25 Gm Iv Premix) 2.25 gm in 50 mls @ 100 mls/hr IVPB Q6H [facility] PRN Reason: Protocol Last Admin: 10/05/17 17:30 Dose: 100 mls/hr Nitroglycerin (Nitrostat Sl Tab) 0.4 mg SL Q5M PRN PRN Reason: chest pain Last Admin: 10/05/17 10:04 Dose: 0.4 mg Sevelamer Carbonate (Renvela) 800 mg PO TIDCC [facility] Last Admin: 10/05/17 17:30 Dose: 800 mg Vitamin B Complex/Vit C/Folic Acid (Nephro-Robyn) 1 tab PO 0800 [facility] Last Admin: 10/05/17 08:27 Dose: 1 tab - Labs Labs: 10/05/17 10:11 10/05/17 10:11 PT 15.2 SECONDS (9.7-12.2) H 10/05/17 10:11 INR 1.3 10/05/17 10:11 APTT 28 SECONDS (21-34) 10/05/17 10:11
[2017-10-05] MEDS ORDERED: Ergocalciferol 50,000 Intl Units Cap PO SCH (18:15)
[2017-10-05] MEDS ORDERED: Digoxin 500 mcg/2ml (0.5 mg/2ml) Inj IVP ONE (19:08)
[2017-10-05] MEDS: Sodium Chloride 0.9% 1,000 ML IV SCH (19:31)
[2017-10-05 19:32] VITALS: PULSE 137
--- NOTE | 2017-10-05 21:06 | CARD ---
APPROVED REPORT EXAM: Two-dimensional and M-mode echocardiogram with Doppler and color Doppler. Other Information Quality : AverageRhythm : NSR INDICATION R/O VEG M-Mode DIMENSIONS RVDd2.34 (2.1-3.2cm)Left Atrium (MM)4.33 (2.5-4.0cm) IVSd1.48 (0.7-1.1cm)Aortic Root2.66 (2.2-3.7cm) LVDd3.67 (4.0-5.6cm)Aortic Cusp Exc.1.41 (1.5-2.0cm) PWd1.84 (0.7-1.1cm)FS (%) 32 % LVDs2.50 (2.0-3.8cm)LVEF (%)61 (>50%) Aortic Valve AoV Peak Lrsednoc306.2cm/[place] Peak GR.9mmHgAI P 1/2 [id number] Mitral Valve MV E Xwvetimq34.3cm/sMV A Afoqcrwy07.4cm/sE/A ratio1.8 TDI E/Lateral E'0.0E/Medial E'0.0 Tricuspid Valve TR Peak [id number]/sTR Peak Gr.[id number] LEFT VENTRICLE The left ventricle is normal size. There is mild concentric left ventricular hypertrophy. Left ventricle systolic function is normal. The Ejection Fraction is 60-65%. There is normal LV segmental wall motion. Atrial fibrilation. There is no ventricular septal defect visualized. RIGHT VENTRICLE The right ventricle is normal size. The right ventricular systolic function is normal. ATRIA The left atrium is mildly dilated. The right atrium size is normal. AORTIC VALVE The aortic valve is mildly sclerotic. The aortic valve is tri-cuspid. There is trace aortic regurgitation. There is no aortic valvular stenosis. MITRAL VALVE The mitral valve is normal in structure. There is no evidence of mitral valve prolapse. There is no mitral valve regurgitation noted. TRICUSPID VALVE The tricuspid valve is not well visualized. There is mild tricuspid regurgitation. Right ventricular systolic pressure is estimated at 40-50 mmHg. There is moderate pulmonary hypertension. PULMONIC VALVE The pulmonic valve is not well visualized. There is trace pulmonic valvular regurgitation. GREAT VESSELS The aortic root is normal in size. The IVC is normal in size and collapses >50% with inspiration. PERICARDIAL EFFUSION There is no pericardial effusion. <Conclusion> There is mild concentric left ventricular hypertrophy. Left ventricle systolic function is normal. The Ejection Fraction is 60-65%. There is trace aortic regurgitation. There is moderate pulmonary hypertension. LUKE is more specific to R/O vegetations.
--- NOTE | 2017-10-05 23:29 | CP.PCM.PN ---
Subjective - Date & Time of Evaluation Date of Evaluation: 10/05/17 Time of Evaluation: 09:45 - Subjective Subjective: Pt seen and evaluated at bedside Objective - Vital Signs/Intake and Output Vital Signs (last 24 hours): Temp Pulse Resp BP Pulse Ox 97.6 F 56 L 16 119/64 100 10/05/17 22:00 10/05/17 23:22 10/05/17 23:22 10/05/17 23:23 10/05/17 23:22 Intake and Output: 10/05/17 10/06/17 18:59 06:59 Intake Total 844.8 500.1 Balance 844.8 500.1 - Medications Medications: Current Medications Albuterol/Ipratropium (Duoneb 3 Mg/0.5 Mg (3 Ml) Ud) 3 ml INH RQ6 [facility] Last Admin: 10/05/17 19:25 Dose: 3 ml Ergocalciferol (Drisdol 50,000 Intl Units Cap) 1 cap PO Q7D [facility] Last Admin: 10/05/17 19:30 Dose: 1 cap Guaifenesin (Mucinex La) 600 mg PO BID [facility] Last Admin: 10/05/17 17:32 Dose: 600 mg Heparin Sodium (Porcine) (Heparin) 5,000 units SC Q12 [facility] Last Admin: 10/05/17 22:06 Dose: 5,000 units Vancomycin HCl 500 mg/ Sodium (Chloride) 100 mls @ 100 mls/hr IVPB TTS L[facility] PRN Reason: Protocol Last Admin: 10/05/17 12:36 Dose: 100 mls/hr Amiodarone HCl 900 mg/ (Dextrose) 500 mls @ 33.33 mls/hr IV .Q15H1M ONE; 1 MG/ MIN PRN Reason: Protocol Stop: 10/06/17 01:00 Last Admin: 10/05/17 13:33 Dose: 33.33 mls/hr Nitroglycerin/Dextrose (Nitroglycerin 50 Mg/250 Ml D5w) 50 mg in 250 mls @ 1.5 mls/hr IV .Q24H LUCIA; 5 MCG/MIN PRN Reason: Protocol Last Titration: 10/05/17 12:30 Dose: 0 mcg/min, 0 mls/hr Ciprofloxacin (Cipro 400mg/200ml Dsw) 400 mg in 200 mls @ 133 mls/hr IVPB Q12H [facility]IA PRN Reason: Protocol Last Admin: 10/05/17 12:29 Dose: 133 mls/hr Piperacillin Sod/Tazobactam Sod (Zosyn 2.25 Gm Iv Premix) 2.25 gm in 50 mls @ 100 mls/hr IVPB Q6H [facility] PRN Reason: Protocol Last Admin: 10/05/17 22:06 Dose: 100 mls/hr Sodium Chloride (Sodium Chloride 0.9%) 1,000 mls @ 50 mls/hr IV .Q20H [facility] Stop: 10/06/17 19:00 Last Admin: 10/05/17 19:31 Dose: 50 mls/hr Nitroglycerin (Nitrostat Sl Tab) 0.4 mg SL Q5M PRN PRN Reason: chest pain Last Admin: 10/05/17 10:04 Dose: 0.4 mg Pantoprazole Sodium (Protonix Inj) 40 mg IVP DAILY [facility] Sevelamer Carbonate (Renvela) 800 mg PO TIDCC [facility] Last Admin: 10/05/17 17:30 Dose: 800 mg Vitamin B Complex/Vit C/Folic Acid (Nephro-Robyn) 1 tab PO 0800 [facility] Last Admin: 10/05/17 08:27 Dose: 1 tab - Labs Labs: 10/05/17 10:11 10/05/17 10:11 PT 15.2 SECONDS (9.7-12.2) H 10/05/17 10:11 INR 1.3 10/05/17 10:11 APTT 28 SECONDS (21-34) 10/05/17 10:11 Assessment and Plan (1) Pneumonia Status: Acute (2) ESRD on dialysis Status: Chronic
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
[2017-10-06] MEDS: Albuterol-Ipratrop 3 mg / 0.5 (3 ml) UD INH SCH ×4 (01:37→19:23)
[2017-10-06] MEDS: Piperacill/Tazo 2.25gm in Dex 2.25 GM/50 ML BAG IVPB SCH ×4 (04:01→22:00)
[2017-10-06 06:41] LABS: BASO % 0.5 % (0.0-2.0); EOS # 1.3 K/uL (0.0-0.7); EOS % 18.6 % (0.0-4.0); HEMOGLOBIN 11.5 g/dL (12.0-18.0); LYMPH # 0.5 K/uL (1.0-4.3); LYMPH % 6.9 % (20.0-40.0); MEAN CELL VOLUME 89.8 fL (80.0-94.0); MEAN CORPUSCULAR HEMOGLOBIN 29.4 pg (27.0-31.0); MEAN CORPUSCULAR HGB CONC 32.8 g/dL (33.0-37.0); MEAN PLATELET VOLUME 9.3 fL (7.2-11.7); MONO # 0.9 K/uL (0.0-0.8); NEUT # 4.1 K/uL (1.8-7.0); PLATELET COUNT 76 K/uL (130-400); RED CELL DISTRIBUTION WIDTH 16.5 % (11.5-14.5); WHITE BLOOD COUNT 6.8 K/uL (4.8-10.8)
[2017-10-06 07:06] LABS: ALB/GLOB RATIO 1.1 (1.0-2.1); ALBUMIN 3.1 g/dL (3.5-5.0); CALCIUM 7.1 mg/dl (8.6-10.4)
[2017-10-06 08:27] LABS: ANISOCYTOSIS SLIGHT; BANDS 9 % (0-2); EOSINOPHIL 18 % (0-4); LYMPHOCYTE 7 % (20-40); MONOCYTE 7 % (0-10); NEUTROPHIL 59 % (50-75); OVALOCYTES SLIGHT; PLATELET ESTIMATE DECREASED (NORMAL); TOTAL CELLS COUNTED 100
[2017-10-06] MEDS: (Novolog) Insulin Aspart, Recombinant 100 u/ml 10 ml vial SC SCH ×4 (08:36→21:58)
[2017-10-06] MEDS: Multivitamin Vitamin B Complex (Nephro-Vite) Tab PO SCH (08:40)
--- NOTE | 2017-10-06 11:05 | CP.PCM.PN ---
<Jeremy Duron - Last Filed: 10/06/17 15:32> Subjective - Date & Time of Evaluation Date of Evaluation: 10/06/17 Time of Evaluation: 09:30 - Subjective Subjective: PGY2 Cardiology Progress Note for Dr. Anderson Patient seen and examined at bedside. No acute distress. Patient c/o intermittent L chest pressure without pain or radiation. Otherwise denies chest pain, SOB, or LE edema. He was resting comfortably this AM receiving dialysis in the ICU. Prior RESEARCH AND DEVELOPMENT ENGINEER called yesterday 10/05 due to chest pain during dialysis. 12-point review of systems is otherwise negative without any additional acute complaints. Objective - Vital Signs/Intake and Output Vital Signs (last 24 hours): Temp Pulse Resp BP Pulse Ox 97.5 F L 84 14 147/72 97 10/06/17 06:00 10/06/17 09:30 10/06/17 09:30 10/06/17 09:30 10/06/17 09:30 Intake and Output: 10/06/17 10/06/17 06:59 18:59 Intake Total 1317.0 400.1 Output Total 400 Balance 917.0 400.1 - Medications Medications: Current Medications Albuterol/Ipratropium (Duoneb 3 Mg/0.5 Mg (3 Ml) Ud) 3 ml INH RQ6 [facility] Last Admin: 10/06/17 07:25 Dose: 3 ml Ergocalciferol (Drisdol 50,000 Intl Units Cap) 1 cap PO Q7D [facility] Last Admin: 10/05/17 19:30 Dose: 1 cap Guaifenesin (Mucinex La) 600 mg PO BID [facility] Last Admin: 10/05/17 17:32 Dose: 600 mg Heparin Sodium (Porcine) (Heparin) 5,000 units SC Q12 [facility] Last Admin: 10/05/17 22:06 Dose: 5,000 units Vancomycin HCl 500 mg/ Sodium (Chloride) 100 mls @ 100 mls/hr IVPB TTS [facility] PRN Reason: Protocol Last Admin: 10/05/17 12:36 Dose: 100 mls/hr Nitroglycerin/Dextrose (Nitroglycerin 50 Mg/250 Ml D5w) 50 mg in 250 mls @ 1.5 mls/hr IV .Q24H [facility]; 5 MCG/MIN PRN Reason: Protocol Last Titration: 10/05/17 12:30 Dose: 0 mcg/min, 0 mls/hr Ciprofloxacin (Cipro 400mg/200ml Dsw) 400 mg in 200 mls @ 133 mls/hr IVPB Q12H [facility] PRN Reason: Protocol Last Admin: 10/05/17 22:58 Dose: 133 mls/hr Piperacillin Sod/Tazobactam Sod (Zosyn 2.25 Gm Iv Premix) 2.25 gm in 50 mls @ 100 mls/hr IVPB Q6H [facility] PRN Reason: Protocol Last Admin: 10/06/17 04:01 Dose: 100 mls/hr Sodium Chloride (Sodium Chloride 0.9%) 1,000 mls @ 50 mls/hr IV .Q20H [facility] Stop: 10/06/17 19:00 Last Admin: 10/05/17 19:31 Dose: 50 mls/hr Insulin Aspart (Novolog) 0 unit SC ACHS [facility] PRN Reason: Protocol Last Admin: 10/06/17 08:36 Dose: Not Given Nitroglycerin (Nitrostat Sl Tab) 0.4 mg SL Q5M PRN PRN Reason: chest pain Last Admin: 10/05/17 10:04 Dose: 0.4 mg Pantoprazole Sodium (Protonix Inj) 40 mg IVP DAILY [facility] Sevelamer Carbonate (Renvela) 800 mg PO TIDCC [facility] Last Admin: 10/06/17 08:40 Dose: 800 mg Vitamin B Complex/Vit C/Folic Acid (Nephro-Robyn) 1 tab PO 0800 [facility] Last Admin: 10/06/17 08:40 Dose: 1 tab - Labs Labs: 10/06/17 06:34 10/06/17 06:34 PT 15.2 SECONDS (9.7-12.2) H 10/05/17 10:11 INR 1.3 10/05/17 10:11 APTT 28 SECONDS (21-34) 10/05/17 10:11 - Additional Findings Additional findings: - Constitutional Appears: Non-Toxic, Chronically Ill - Head Exam Head Exam: ATRAUMATIC, NORMAL INSPECTION, NORMOCEPHALIC - Eye Exam Eye Exam: EOMI, PERRL. absent: Scleral icterus - ENT Exam ENT Exam: Mucous Membranes Dry, Normal External Ear Exam, Normal Oropharynx - Neck Exam Neck exam: Negative for: Lymphadenopathy, Thyromegaly - Respiratory Exam Respiratory Exam: Decreased Breath Sounds, Prolonged Expiratory Phase, Rhonchi - Cardiovascular Exam Cardiovascular Exam: Regular Rate, REGULAR RHYTHM, +S1, +S2 - GI/Abdominal Exam GI & Abdominal Exam: Diminished Bowel Sounds, Distended, Soft. absent: Tenderness - Extremities Exam Extremities exam: Positive for: pedal pulses present. Negative for: calf tenderness, pedal edema - Neurological Exam Neurological exam: Alert, CN II-XII Intact, Oriented x3, Reflexes Normal - Psychiatric Exam Psychiatric exam: Normal Mood - Skin Skin Exam: Dry, Intact Assessment and Plan - Assessment and Plan (Free Text) Assessment: Chest Pressure 10/06: Continue nitro drip BP 147/68; HR 82 Patient is NPO past MN for Babs Stress Test this monday10/09/17. Transferred to ICU after a RESEARCH AND DEVELOPMENT ENGINEER- Hypotensive and tachycardic +Sepsis ESRD on Dialysis 10/06: pt receiving dialysis this AM c/o mild chest pressure at L chest wall. Dialysis T,Th,Sat Hypotension 10/06: BP 147/68; HR 82 Continue IVF NS at 50cc/hr Case Discussed with Dr. Justin Duron, PGY2 <Theo Anderson - Last Filed: 10/06/17 22:46> Objective - Vital Signs/Intake and Output Vital Signs (last 24 hours): Temp Pulse Resp BP Pulse Ox 98.1 F 70 16 152/66 H 98 10/06/17 16:00 10/06/17 18:50 10/06/17 18:50 10/06/17 18:50 10/06/17 18:50 Intake and Output: 10/06/17 10/07/17 18:59 06:59 Intake Total 1366.9 Balance 1366.9 - Medications Medications: Current Medications Albuterol/Ipratropium (Duoneb 3 Mg/0.5 Mg (3 Ml) Ud) 3 ml INH RQ6 [facility] Last Admin: 10/06/17 19:23 Dose: 3 ml Amiodarone HCl (Cordarone) 200 mg PO BID [facility] Last Admin: 10/06/17 18:24 Dose: 200 mg Ergocalciferol (Drisdol 50,000 Intl Units Cap) 1 cap PO Q7D [facility] Last Admin: 10/05/17 19:30 Dose: 1 cap Guaifenesin (Mucinex La) 600 mg PO BID [facility] Last Admin: 10/06/17 18:24 Dose: 600 mg Heparin Sodium (Porcine) (Heparin) 5,000 units SC Q12 [facility] Last Admin: 10/06/17 21:58 Dose: 5,000 units Vancomycin HCl 500 mg/ Sodium (Chloride) 100 mls @ 100 mls/hr IVPB TTS [facility] PRN Reason: Protocol Last Admin: 10/05/17 12:36 Dose: 100 mls/hr Piperacillin Sod/Tazobactam Sod (Zosyn 2.25 Gm Iv Premix) 2.25 gm in 50 mls @ 100 mls/hr IVPB Q6H [facility] PRN Reason: Protocol Last Admin: 10/06/17 22:00 Dose: 100 mls/hr Insulin Aspart (Novolog) 0 unit SC ACHS [facility] PRN Reason: Protocol Last Admin: 10/06/17 21:58 Dose: Not Given Nitroglycerin (Nitrostat Sl Tab) 0.4 mg SL Q5M PRN PRN Reason: chest pain Last Admin: 10/05/17 10:04 Dose: 0.4 mg Sevelamer Carbonate (Renvela) 800 mg PO TIDCC [facility] Last Admin: 10/06/17 16:41 Dose: 800 mg Vitamin B Complex/Vit C/Folic Acid (Nephro-Robyn) 1 tab PO 0800 [facility] Last Admin: 10/06/17 08:40 Dose: 1 tab - Labs Labs: 10/06/17 06:34 10/06/17 06:34 PT 15.2 SECONDS (9.7-12.2) H 10/05/17 10:11 INR 1.3 10/05/17 10:11 APTT 28 SECONDS (21-34) 10/05/17 10:11 Assessment and Plan - Assessment and Plan (Free Text) Plan: Patient seen and evaluated Plan of care d/w the medical staff services manager and as documented
[2017-10-06] MEDS: guaiFENesin 600 mg ER Tab PO SCH ×2 (12:02→18:24)
[2017-10-06] MEDS: Ciprofloxacin 400mg/200ml D5W 400 MG/200 ML BAG IVPB SCH (13:27)
--- NOTE | 2017-10-06 15:43 | CP.PCM.PN ---
Subjective - Date & Time of Evaluation Date of Evaluation: 10/06/17 Time of Evaluation: 08:00 - Subjective Subjective: awake alert less sob nad blood c/s + consider LUKE cath removed right subclavian Objective - Vital Signs/Intake and Output Vital Signs (last 24 hours): Temp Pulse Resp BP Pulse Ox 97.7 F 72 16 148/69 98 10/06/17 13:15 10/06/17 13:15 10/06/17 13:15 10/06/17 13:15 10/06/17 13:15 Intake and Output: 10/06/17 10/06/17 06:59 18:59 Intake Total 1317.0 766.9 Output Total 400 Balance 917.0 766.9 - Medications Medications: Current Medications Albuterol/Ipratropium (Duoneb 3 Mg/0.5 Mg (3 Ml) Ud) 3 ml INH RQ6 [facility] Last Admin: 10/06/17 13:40 Dose: 3 ml Amiodarone HCl (Cordarone) 200 mg PO BID [facility] Last Admin: 10/06/17 13:31 Dose: 200 mg Ergocalciferol (Drisdol 50,000 Intl Units Cap) 1 cap PO Q7D [facility] Last Admin: 10/05/17 19:30 Dose: 1 cap Guaifenesin (Mucinex La) 600 mg PO BID [facility] Last Admin: 10/06/17 12:02 Dose: 600 mg Heparin Sodium (Porcine) (Heparin) 5,000 units SC Q12 [facility] Last Admin: 10/06/17 12:02 Dose: 5,000 units Vancomycin HCl 500 mg/ Sodium (Chloride) 100 mls @ 100 mls/hr IVPB TTS [facility] PRN Reason: Protocol Last Admin: 10/05/17 12:36 Dose: 100 mls/hr Ciprofloxacin (Cipro 400mg/200ml Dsw) 400 mg in 200 mls @ 133 mls/hr IVPB Q12H [facility] PRN Reason: Protocol Last Admin: 10/06/17 13:27 Dose: 133 mls/hr Piperacillin Sod/Tazobactam Sod (Zosyn 2.25 Gm Iv Premix) 2.25 gm in 50 mls @ 100 mls/hr IVPB Q6H [facility] PRN Reason: Protocol Last Admin: 10/06/17 13:32 Dose: 100 mls/hr Sodium Chloride (Sodium Chloride 0.9%) 1,000 mls @ 50 mls/hr IV .Q20H [facility] Stop: 10/06/17 19:00 Last Admin: 10/05/17 19:31 Dose: 50 mls/hr Insulin Aspart (Novolog) 0 unit SC ACHS [facility] PRN Reason: Protocol Last Admin: 10/06/17 12:03 Dose: 1 unit Nitroglycerin (Nitrostat Sl Tab) 0.4 mg SL Q5M PRN PRN Reason: chest pain Last Admin: 10/05/17 10:04 Dose: 0.4 mg Sevelamer Carbonate (Renvela) 800 mg PO TIDCC [facility] Last Admin: 10/06/17 13:29 Dose: 800 mg Vitamin B Complex/Vit C/Folic Acid (Nephro-Robyn) 1 tab PO 0800 [facility] Last Admin: 10/06/17 08:40 Dose: 1 tab - Labs Labs: 10/06/17 06:34 10/06/17 06:34 PT 15.2 SECONDS (9.7-12.2) H 10/05/17 10:11 INR 1.3 10/05/17 10:11 APTT 28 SECONDS (21-34) 10/05/17 10:11 - Constitutional Appears: Non-toxic, Chronically Ill - Head Exam Head Exam: NORMOCEPHALIC - Eye Exam Eye Exam: PERRL - ENT Exam ENT Exam: Mucous Membranes Dry - Neck Exam Neck Exam: absent: Lymphadenopathy - Respiratory Exam Respiratory Exam: Decreased Breath Sounds - Cardiovascular Exam Cardiovascular Exam: REGULAR RHYTHM - GI/Abdominal Exam GI & Abdominal Exam: Distended - Rectal Exam Rectal Exam: Deferred - Exam Exam: NORMAL INSPECTION - Extremities Exam Extremities Exam: absent: Pedal Edema - Back Exam Back Exam: absent: CVA tenderness (L), CVA tenderness (R) - Neurological Exam Neurological Exam: Alert, Awake Assessment and Plan (1) Pneumonia Status: Acute (2) AV fistula occlusion Status: Acute (3) Anemia Status: Acute - Assessment and Plan (Free Text) Assessment: await results of sensitivity consider LUKE
[2017-10-06] MEDS: Sodium Chloride 0.9% 1,000 ML IV SCH (16:41)
--- NOTE | 2017-10-06 17:02 | CP.PCM.PN ---
Subjective - Date & Time of Evaluation Date of Evaluation: 10/06/17 Time of Evaluation: 17:00 - Subjective Subjective: Nephrology Consultation Note: Assessment: critical Staph Aureus Sepsis likely due to permacath infection Pneumonia, Chest pain, thrombocytopenia Hypertensive Chronic Kidney Disease (I12.0) End stage renal disease (N18.6) dependence on hemodialysis (Z99.2) (TTS) via AVG Anemia (D64.9), Hyperphosphatemia (E83.39), Secondary Hyperparathyroidism (E21.1 ), HTN (I12.0) Ex-smoker CHF, A. fib, history of DVT status post IVC filter, COPD, Mediastinal adenopathy Plan: for dialysis today as did not tolerate dialysis yesterday. Will plan for dialysis tomorrow As per usual TTS schedule. Continue with Nephrovite 1 tab/ day. PRBC as needed for anemia. Not on LACIE as, last Hb 11.5 Continue with phos binders home dose BP control with meds as ordered. Patient not on RAAS cecelia as BP low side Glycemic control, Dialysis consistent diet Further work up/management as per primary team Dose meds/antibiotics for ESRD status. Avoid fleets enema/magnesium based laxatives. evaluation for low platelet count Ongoing. Agree with removing permacath. Patient is functioning AV graft in the left upper extremity. Thanks for allowing me to participate in care of your patient. Will follow patient with you. Please call if any Qs Dr Dilip Ernandez Office: [phone] Chief Complaint; none now HPI: Pt is a 67 M with hx of ESRD on hemodialysis (TTS) via AVG @ [facility] st, last dialysis yesterday, chronic anemia, hyperphosphatemia, secondary hyperparathyroidism, hypertension, Ex-smoker CHF, A. fib, history of DVT status post IVC filter, COPD, Mediastinal adenopathy presented with complaints of Chest pain. Patient was found to have pneumonia and being treated with antibiotics. Also with low platelet counts. Renal consult for ESRD management ROS: Cardiovascular: no chest pain. Pulmonary: No shortness of breath Gastrointestinal: denies abdominal pain No nausea. No vomiting. Genitourinary: No pain while urinating. Denies blood in urine. All other negative except as mentioned in HPI Physical Examination: seen on HD General Appearance: Comfortable, in no acute respiratory distress, co-operative . Vitals reviewed and noted as below Head; Atraumatic, normocephalic ENT: no ulcers no thrush. Tongue is midline. Oropharynx: no rash or ulcers. EYES: Pupils are equal, round and reactive to light accommodation. Eye muscles and extraocular movement intact. Sclera is anicteric. Neck; supple no lymphadenopathy, no thyromegaly or bruit Lungs: Normal respiratory rate/effort. Breath sounds bilateral Decreased at bases with basilar crackles Heart: Normal rate. s1s2 normal. No rub or gallop. Extremities: no edema. No varicose veins Neurological: Patient is alert, awake and oriented to person, place and time. No focal deficit. Strength bilateral appropriate and equal Skin: Warm and dry. Normal turgor. No rash. Palpitation: Normal elasticity for age Abdomen: Abdomen is soft. Bowel sounds +. There is no abdominal tenderness, no guarding/rigidity or organomegaly Psych: normal insight and normal affect/mood MSK: no joint tenderness or swelling. Digits and nails normal, no deformity : kidney or bladder not palpable Access: Left AV graft with thrill and bruit. Labs/imaging reviewed. Past medical history, past surgical history, family history, social history, allergy reviewed and noted as below Family Hx: no hx of CKD. Non contributory Objective - Vital Signs/Intake and Output Vital Signs (last 24 hours): Temp Pulse Resp BP Pulse Ox 98.1 F 80 21 143/68 97 10/06/17 16:00 10/06/17 16:49 10/06/17 16:49 10/06/17 16:50 10/06/17 16:49 Intake and Output: 10/06/17 10/06/17 06:59 18:59 Intake Total 1317.0 1191.9 Output Total 400 Balance 917.0 1191.9 - Medications Medications: Current Medications Albuterol/Ipratropium (Duoneb 3 Mg/0.5 Mg (3 Ml) Ud) 3 ml INH RQ6 [facility] Last Admin: 10/06/17 13:40 Dose: 3 ml Amiodarone HCl (Cordarone) 200 mg PO BID [facility] Last Admin: 10/06/17 13:31 Dose: 200 mg Ergocalciferol (Drisdol 50,000 Intl Units Cap) 1 cap PO Q7D [facility] Last Admin: 10/05/17 19:30 Dose: 1 cap Guaifenesin (Mucinex La) 600 mg PO BID [facility] Last Admin: 10/06/17 12:02 Dose: 600 mg Heparin Sodium (Porcine) (Heparin) 5,000 units SC Q12 [facility] Last Admin: 10/06/17 12:02 Dose: 5,000 units Vancomycin HCl 500 mg/ Sodium (Chloride) 100 mls @ 100 mls/hr IVPB TTS [facility] PRN Reason: Protocol Last Admin: 10/05/17 12:36 Dose: 100 mls/hr Ciprofloxacin (Cipro 400mg/200ml Dsw) 400 mg in 200 mls @ 133 mls/hr IVPB Q12H [facility] PRN Reason: Protocol Last Admin: 10/06/17 13:27 Dose: 133 mls/hr Piperacillin Sod/Tazobactam Sod (Zosyn 2.25 Gm Iv Premix) 2.25 gm in 50 mls @ 100 mls/hr IVPB Q6H [facility] PRN Reason: Protocol Last Admin: 10/06/17 16:45 Dose: 100 mls/hr Sodium Chloride (Sodium Chloride 0.9%) 1,000 mls @ 50 mls/hr IV .Q20H [facility] Stop: 10/06/17 19:00 Last Admin: 10/06/17 16:41 Dose: 50 mls/hr Insulin Aspart (Novolog) 0 unit SC ACHS [facility] PRN Reason: Protocol Last Admin: 10/06/17 16:41 Dose: 1 unit Nitroglycerin (Nitrostat Sl Tab) 0.4 mg SL Q5M PRN PRN Reason: chest pain Last Admin: 10/05/17 10:04 Dose: 0.4 mg Sevelamer Carbonate (Renvela) 800 mg PO TIDCC [facility] Last Admin: 10/06/17 16:41 Dose: 800 mg Vitamin B Complex/Vit C/Folic Acid (Nephro-Robyn) 1 tab PO 0800 [facility] Last Admin: 10/06/17 08:40 Dose: 1 tab - Labs Labs: 10/06/17 06:34 10/06/17 06:34 PT 15.2 SECONDS (9.7-12.2) H 10/05/17 10:11 INR 1.3 10/05/17 10:11 APTT 28 SECONDS (21-34) 10/05/17 10:11
[2017-10-06] MEDS: Nitroglycerin 50mg in D5W 50 MG/250 ML BOTTLE IV SCH (18:13)
--- NOTE | 2017-10-06 23:34 | CP.PCM.PN ---
Subjective - Date & Time of Evaluation Date of Evaluation: 10/06/17 Time of Evaluation: 19:00 - Subjective Subjective: Pt seen and examined at bedside Objective - Vital Signs/Intake and Output Vital Signs (last 24 hours): Temp Pulse Resp BP Pulse Ox 98.1 F 70 16 152/66 H 98 10/06/17 16:00 10/06/17 18:50 10/06/17 18:50 10/06/17 18:50 10/06/17 18:50 Intake and Output: 10/06/17 10/07/17 18:59 06:59 Intake Total 1366.9 Balance 1366.9 - Medications Medications: Current Medications Albuterol/Ipratropium (Duoneb 3 Mg/0.5 Mg (3 Ml) Ud) 3 ml INH RQ6 [facility] Last Admin: 10/06/17 19:23 Dose: 3 ml Amiodarone HCl (Cordarone) 200 mg PO BID [facility] Last Admin: 10/06/17 18:24 Dose: 200 mg Ergocalciferol (Drisdol 50,000 Intl Units Cap) 1 cap PO Q7D [facility] Last Admin: 10/05/17 19:30 Dose: 1 cap Guaifenesin (Mucinex La) 600 mg PO BID [facility] Last Admin: 10/06/17 18:24 Dose: 600 mg Heparin Sodium (Porcine) (Heparin) 5,000 units SC Q12 [facility] Last Admin: 10/06/17 21:58 Dose: 5,000 units Vancomycin HCl 500 mg/ Sodium (Chloride) 100 mls @ 100 mls/hr IVPB TTS [facility] PRN Reason: Protocol Last Admin: 10/05/17 12:36 Dose: 100 mls/hr Piperacillin Sod/Tazobactam Sod (Zosyn 2.25 Gm Iv Premix) 2.25 gm in 50 mls @ 100 mls/hr IVPB Q6H [facility] PRN Reason: Protocol Last Admin: 10/06/17 22:00 Dose: 100 mls/hr Insulin Aspart (Novolog) 0 unit SC ACHS [facility] PRN Reason: Protocol Last Admin: 10/06/17 21:58 Dose: Not Given Nitroglycerin (Nitrostat Sl Tab) 0.4 mg SL Q5M PRN PRN Reason: chest pain Last Admin: 10/05/17 10:04 Dose: 0.4 mg Sevelamer Carbonate (Renvela) 800 mg PO TIDCC [facility] Last Admin: 10/06/17 16:41 Dose: 800 mg Vitamin B Complex/Vit C/Folic Acid (Nephro-Robyn) 1 tab PO 0800 [facility] Last Admin: 10/06/17 08:40 Dose: 1 tab - Labs Labs: 10/06/17 06:34 10/06/17 06:34 PT 15.2 SECONDS (9.7-12.2) H 10/05/17 10:11 INR 1.3 10/05/17 10:11 APTT 28 SECONDS (21-34) 10/05/17 10:11 Assessment and Plan (1) Pneumonia Status: Acute (2) ESRD on dialysis Status: Chronic
[2017-10-07] MEDS: Albuterol-Ipratrop 3 mg / 0.5 (3 ml) UD INH SCH ×3 (02:43→13:27)
[2017-10-07] MEDS: Piperacill/Tazo 2.25gm in Dex 2.25 GM/50 ML BAG IVPB SCH ×2 (05:00→12:31)
[2017-10-07] MEDS: (Novolog) Insulin Aspart, Recombinant 100 u/ml 10 ml vial SC SCH ×4 (07:49→22:35)
[2017-10-07] MEDS: Multivitamin Vitamin B Complex (Nephro-Vite) Tab PO SCH (07:52)
[2017-10-07] MEDS: guaiFENesin 600 mg ER Tab PO SCH (09:37)
--- NOTE | 2017-10-07 09:56 | CP.PCM.PN ---
Subjective - Date & Time of Evaluation Date of Evaluation: 10/07/17 Time of Evaluation: 09:54 - Subjective Subjective: Nephrology Follow up Assessment: critical Staph Aureus Sepsis likely due to permacath infection Pneumonia, Chest pain, thrombocytopenia Hypertensive Chronic Kidney Disease (I12.0) End stage renal disease (N18.6) dependence on hemodialysis (Z99.2) (TTS) via AVG Anemia (D64.9), Hyperphosphatemia (E83.39), Secondary Hyperparathyroidism (E21.1 ), HTN (I12.0) Ex-smoker CHF, A. fib, history of DVT status post IVC filter, COPD, Mediastinal adenopathy Plan: seen on HD tolerating treatment cont nephrovite LACIE on hold Continue with phos binders home dose BP cont bp stable avg working S: seen on hd feels ok Physical Examination: seen on HD General Appearance: Comfortable, in no acute respiratory distress, co-operative . Vitals reviewed and noted as below Head; Atraumatic, normocephalic ENT: no ulcers no thrush. Tongue is midline. Oropharynx: no rash or ulcers. EYES: Pupils are equal, round and reactive to light accommodation. Eye muscles and extraocular movement intact. Sclera is anicteric. Neck; supple no lymphadenopathy, no thyromegaly or bruit Lungs: Normal respiratory rate/effort. Breath sounds bilateral Decreased at bases with basilar crackles Heart: Normal rate. s1s2 normal. No rub or gallop. Extremities: no edema. No varicose veins Neurological: Patient is alert, awake and oriented to person, place and time. No focal deficit. Strength bilateral appropriate and equal Skin: Warm and dry. Normal turgor. No rash. Palpitation: Normal elasticity for age Abdomen: Abdomen is soft. Bowel sounds +. There is no abdominal tenderness, no guarding/rigidity or organomegaly Psych: normal insight and normal affect/mood MSK: no joint tenderness or swelling. Digits and nails normal, no deformity : kidney or bladder not palpable Access: Left AV graft with thrill and bruit. Labs/imaging reviewed. Past medical history, past surgical history, family history, social history, allergy reviewed and noted as below Family Hx: no hx of CKD. Non contributory Objective - Vital Signs/Intake and Output Vital Signs (last 24 hours): Temp Pulse Resp BP Pulse Ox 97.6 F 89 19 110/68 100 03/31/18 04:00 10/07/17 07:56 10/07/17 07:56 10/07/17 07:56 10/07/17 07:56 Intake and Output: 10/07/17 10/07/17 06:59 18:59 Intake Total 320 150 Output Total 200 150 Balance 120 0 - Medications Medications: Current Medications Albuterol/Ipratropium (Duoneb 3 Mg/0.5 Mg (3 Ml) Ud) 3 ml INH RQ6 [facility] Last Admin: 10/07/17 07:33 Dose: 3 ml Amiodarone HCl (Cordarone) 200 mg PO BID [facility] Last Admin: 10/07/17 09:37 Dose: 200 mg Ergocalciferol (Drisdol 50,000 Intl Units Cap) 1 cap PO Q7D [facility] Last Admin: 10/05/17 19:30 Dose: 1 cap Guaifenesin (Mucinex La) 600 mg PO BID [facility] Last Admin: 10/07/17 09:37 Dose: 600 mg Heparin Sodium (Porcine) (Heparin) 5,000 units SC Q12 [facility] Last Admin: 10/07/17 09:37 Dose: 5,000 units Vancomycin HCl 500 mg/ Sodium (Chloride) 100 mls @ 100 mls/hr IVPB TTS [facility] PRN Reason: Protocol Last Admin: 10/05/17 12:36 Dose: 100 mls/hr Piperacillin Sod/Tazobactam Sod (Zosyn 2.25 Gm Iv Premix) 2.25 gm in 50 mls @ 100 mls/hr IVPB Q6H [facility] PRN Reason: Protocol Last Admin: 10/07/17 05:00 Dose: 100 mls/hr Insulin Aspart (Novolog) 0 unit SC ACHS [facility] PRN Reason: Protocol Last Admin: 10/07/17 07:49 Dose: Not Given Nitroglycerin (Nitrostat Sl Tab) 0.4 mg SL Q5M PRN PRN Reason: chest pain Last Admin: 10/05/17 10:04 Dose: 0.4 mg Sevelamer Carbonate (Renvela) 800 mg PO TIDCC [facility] Last Admin: 10/07/17 07:52 Dose: 800 mg Vitamin B Complex/Vit C/Folic Acid (Nephro-Robyn) 1 tab PO 0800 [facility] Last Admin: 10/07/17 07:52 Dose: 1 tab - Labs Labs: 10/06/17 06:34 10/06/17 06:34 PT 15.2 SECONDS (9.7-12.2) H 10/05/17 10:11 INR 1.3 10/05/17 10:11 APTT 28 SECONDS (21-34) 10/05/17 10:11
--- NOTE | 2017-10-07 15:03 | CP.PCM.PN ---
Subjective - Date & Time of Evaluation Date of Evaluation: 10/07/17 Time of Evaluation: 07:00 - Subjective Subjective: tachycardic afebrile nad Objective - Vital Signs/Intake and Output Vital Signs (last 24 hours): Temp Pulse Resp BP Pulse Ox 97.3 F L 140 H 24 154/90 H 96 10/07/17 12:30 10/07/17 14:28 10/07/17 14:28 10/07/17 14:28 10/07/17 14:28 Intake and Output: 10/07/17 10/07/17 06:59 18:59 Intake Total 320 575 Output Total 200 150 Balance 120 425 - Medications Medications: Current Medications Diltiazem HCl (Cardizem) 30 mg PO QID [facility] Last Admin: 10/07/17 14:01 Dose: Not Given Ergocalciferol (Drisdol 50,000 Intl Units Cap) 1 cap PO Q7D [facility] Last Admin: 10/05/17 19:30 Dose: 1 cap Heparin Sodium (Porcine) (Heparin) 5,000 units SC Q12 [facility] Last Admin: 10/07/17 09:37 Dose: 5,000 units Vancomycin HCl 500 mg/ Sodium (Chloride) 100 mls @ 100 mls/hr IVPB TTS [facility] PRN Reason: Protocol Last Admin: 10/07/17 13:38 Dose: 100 mls/hr Piperacillin Sod/Tazobactam Sod (Zosyn 2.25 Gm Iv Premix) 2.25 gm in 50 mls @ 100 mls/hr IVPB Q6H [facility] PRN Reason: Protocol Last Admin: 10/07/17 12:31 Dose: 100 mls/hr Amiodarone HCl 900 mg/ (Dextrose) 500 mls @ 33.33 mls/hr IV .Q15H1M ONE; 1 MG/ MIN PRN Reason: Protocol Stop: 10/08/17 05:00 Last Admin: 10/07/17 14:28 Dose: 33.33 mls/hr Insulin Aspart (Novolog) 0 unit SC ACHS [facility] PRN Reason: Protocol Last Admin: 10/07/17 11:47 Dose: Not Given Nitroglycerin (Nitrostat Sl Tab) 0.4 mg SL Q5M PRN PRN Reason: chest pain Last Admin: 10/05/17 10:04 Dose: 0.4 mg Sevelamer Carbonate (Renvela) 800 mg PO TIDCC [facility] Last Admin: 10/07/17 12:26 Dose: 800 mg Vitamin B Complex/Vit C/Folic Acid (Nephro-Robyn) 1 tab PO 0800 [facility] Last Admin: 10/07/17 07:52 Dose: 1 tab - Labs Labs: 10/06/17 06:34 10/06/17 06:34 PT 15.2 SECONDS (9.7-12.2) H 10/05/17 10:11 INR 1.3 10/05/17 10:11 APTT 28 SECONDS (21-34) 10/05/17 10:11 - Constitutional Appears: Non-toxic, Chronically Ill - Head Exam Head Exam: ATRAUMATIC, NORMOCEPHALIC - Eye Exam Eye Exam: PERRL. absent: Scleral icterus - ENT Exam ENT Exam: Mucous Membranes Dry - Neck Exam Neck Exam: absent: Lymphadenopathy - Respiratory Exam Respiratory Exam: Decreased Breath Sounds - Cardiovascular Exam Cardiovascular Exam: Tachycardia, REGULAR RHYTHM, +S1, +S2 - GI/Abdominal Exam GI & Abdominal Exam: Distended, Soft Assessment and Plan (1) Pneumonia Status: Acute (2) AV fistula occlusion Status: Acute (3) Anemia Status: Acute (4) Sepsis Status: Acute - Assessment and Plan (Free Text) Assessment: consider LUKE to r/o endoocarditis will repeat cultures switch to Nafcillin IV
[2017-10-07] MEDS ORDERED: ceFAZolin IV 2 gm in Dextrose 2 GM/50 ML BAG IVPB ONE (16:30)
--- NOTE | 2017-10-07 17:43 | CP.CCUPN ---
CCU Subjective - Physician Review Events Since Last Encounter (Free Text): 10/07/17 17:42 patient is a 67-year-old male with history of hypertension, end-stage renal disease on dialysis Heart disease Patient was getting dialysis today, was to dialysis patient developed a significant supraventricular tachycardia, and a possible atrial fibrillation. patient received amiodarone no improvement. Started on amiodarone drip, and now is doing well. Patient become sinus stable Will keep the patient ICUwill monitor. CCU Objective - Vital Signs / Intake & Output Vital Signs (Last 4 hours): Vital Signs Temp Pulse Resp BP Pulse Ox 10/07/17 16:00 98.0 F 137 H 23 96 10/07/17 15:00 138 H 20 128/72 96 10/07/17 14:30 142 H 21 138/83 94 L 10/07/17 14:28 140 H 24 154/90 H 96 Intake and Output (Last 8hrs): Intake & Output 10/07/17 10/07/17 10/07/17 06:59 14:59 22:59 Intake Total 50 558.3 186.6 Output Total 150 150 200 Balance -100 408.3 -13.4 Intake: Intake, IV Amount 50 183.3 66.6 Right Inner Wrist #2 0 0 right inner wrist 50 183.3 66.6 Oral 375 120 Output: Urine 150 150 200 Urine, Voided 150 150 200 Other: # Voids Urine, Voided 1 1 # Bowel Movements 0 0 - Medications Active Medications: Active Medications Generic Name Dose Route Start Last Admin Trade Name Freq PRN Reason Stop Dose Admin Diltiazem HCl 30 mg 10/07/17 13:30 10/07/17 16:59 Cardizem PO 30 mg QID [facility] Administration Ergocalciferol 1 cap 10/05/17 18:15 10/05/17 19:30 Drisdol 50,000 Intl Units Cap PO 1 cap Q7D [facility] Administration Heparin Sodium (Porcine) 5,000 units 10/05/17 22:00 10/07/17 09:37 Heparin SC 5,000 units Q12 [facility] Administration Amiodarone HCl 900 mg/ 500 mls @ 33.33 mls/hr 10/07/17 14:00 10/07/17 14:28 Dextrose IV 10/08/17 05:00 33.33 mls/hr .Q15H1M ONE Administration Protocol 1 MG/MIN Nafcillin Sodium 2 gm/ Sodium 250 mls @ 250 mls/hr 10/07/17 16:00 10/07/17 16 :21 Chloride IVPB 250 mls/hr Q6H [facility] Administration Protocol Insulin Aspart 0 unit 10/06/17 07:30 10/07/17 16:38 Novolog SC 1 unit ACHS [facility] Administration Protocol Nitroglycerin 0.4 mg 10/05/17 09:52 10/05/17 10:04 Nitrostat Sl Tab SL 0.4 mg Q5M PRN Administration chest pain Sevelamer Carbonate 800 mg 10/04/17 08:15 10/07/17 16:28 Renvela PO 800 mg TIDCC [facility] Administration Vitamin B Complex/Vit C/Folic Acid 1 tab 10/05/17 08:00 10/07/17 07:52 Nephro-Robyn PO 1 tab 0800 [facility] Administration - Patient Studies Lab Studies: Microbiology Studies 10/04/17 04:00 Blood Culture - Final Blood Staphylococcus Aureus Gram Stain - Final 10/04/17 04:30 S.aureus & Coag-Neg Staph PNA FISH - Final Blood Blood Culture - Final Staphylococcus Aureus Gram Stain - Final Lab Studies 10/07/17 10/07/17 10/07/17 Range/Units 16:31 11:31 07:13 POC Glucose (mg/dL) 176 H 115 H 99 (65-110) mg/dL Hemoglobin A1c (4.2-6.5) % [facility] Low Dose 0.1 % Release [facility] Low Dose 0.5 % Release [facility] High Dose 100 % Release 10/06/17 10/06/17 10/04/17 Range/Units 22:45 21:08 10:47 POC Glucose (mg/dL) 96 (65-110) mg/dL Hemoglobin A1c 5.4 (4.2-6.5) % [facility] Low Dose 0.1 0 % Release [facility] Low Dose 0.5 0 % Release [facility] High Dose 100 0 % Release Laboratory Results - last 24 hr 10/04/17 10/06/17 10/06/17 10:47 21:08 22:45 POC Glucose (mg/dL) 96 Hemoglobin A1c 5.4 [facility] Low Dose 0.1 0 [facility] Low Dose 0.5 0 [facility] High Dose 100 0 10/07/17 10/07/17 10/07/17 07:13 11:31 16:31 POC Glucose (mg/dL) 99 115 H 176 H Hemoglobin A1c [facility] Low Dose 0.1 [facility] Low Dose 0.5 [facility] High Dose 100 Fingerstick Blood Sugar Results: 176 Critical Care Progress Note - Nutrition Nutrition: Nutrition Category Date Time Status NPO Diet [DIET] Diets 10/09/17 Breakfast Active Renal Diet [DIET] Diets 10/04/17 Breakfast Active
[2017-10-07 21:12] LABS: HEMOGLOBIN 13.1 g/dL (12.0-18.0); MEAN CELL VOLUME 88.6 fL (80.0-94.0); MEAN CORPUSCULAR HEMOGLOBIN 29.2 pg (27.0-31.0); MEAN PLATELET VOLUME 9.1 fL (7.2-11.7); RBC 4.5 Mil/uL (4.40-5.90); RED CELL DISTRIBUTION WIDTH 16.6 % (11.5-14.5); WHITE BLOOD COUNT 7.9 K/uL (4.8-10.8)
[2017-10-07 21:26] LABS: ALB/GLOB RATIO 0.9 (1.0-2.1); ALBUMIN 4.2 g/dL (3.5-5.0); ALT/SGPT < 6 U/L (21-72); AST/SGOT 86 U/L (17-59); BLOOD UREA NITROGEN 18 mg/dL (9-20); CALCIUM 7.6 mg/dl (8.6-10.4); GFR AFRICAN-AMERICAN 29; GFR NON-AFRICAN AMERICAN 24
[2017-10-07 21:36] LABS: CK-MB 1.91 ng/mL (0.0-3.38)
[2017-10-07] MEDS ORDERED: (Novolin R) Insulin Human Regular 100 units/ml vial IV ONE (21:47)
[2017-10-07] MEDS ORDERED: Dextrose 50% SYRINGE Inj (50 ml) IV STA (21:47)
--- NOTE | 2017-10-07 22:39 | CP.PCM.PN ---
Subjective - Date & Time of Evaluation Date of Evaluation: 10/07/17 Time of Evaluation: 09:00 - Subjective Subjective: Pt seen and examined in ICU, in rapid A.fib, on amidarone drip, awake, alert, denies any chest pain, sob,no distress, on antibiotics due to gram neg septicemia Objective - Vital Signs/Intake and Output Vital Signs (last 24 hours): Temp Pulse Resp BP Pulse Ox 97.6 F 68 11 L 138/67 98 10/07/17 20:00 10/07/17 22:00 10/07/17 22:00 10/07/17 22:00 10/07/17 22:00 Intake and Output: 10/07/17 10/08/17 18:59 06:59 Intake Total 1236.5 203.3 Output Total 350 100 Balance 886.5 103.3 - Medications Medications: Current Medications Diltiazem HCl (Cardizem) 30 mg PO QID [facility] Last Admin: 10/07/17 21:30 Dose: 30 mg Ergocalciferol (Drisdol 50,000 Intl Units Cap) 1 cap PO Q7D [facility] Last Admin: 10/05/17 19:30 Dose: 1 cap Heparin Sodium (Porcine) (Heparin) 5,000 units SC Q12 [facility] Last Admin: 10/07/17 21:30 Dose: 5,000 units Amiodarone HCl 900 mg/ (Dextrose) 500 mls @ 33.33 mls/hr IV .Q15H1M ONE; 1 MG/ MIN PRN Reason: Protocol Stop: 10/08/17 05:00 Last Admin: 10/07/17 14:28 Dose: 33.33 mls/hr Nafcillin Sodium 2 gm/ Sodium (Chloride) 250 mls @ 250 mls/hr IVPB Q6H [facility] PRN Reason: Protocol Last Admin: 10/07/17 21:37 Dose: 250 mls/hr Amiodarone HCl 900 mg/ (Dextrose) 500 mls @ 16.66 mls/hr IV .Q24H [facility]; 0.5 MG/ MIN PRN Reason: Protocol Stop: 10/08/17 21:44 Insulin Aspart (Novolog) 0 unit SC ACHS [facility] PRN Reason: Protocol Last Admin: 10/07/17 22:35 Dose: Not Given Nitroglycerin (Nitrostat Sl Tab) 0.4 mg SL Q5M PRN PRN Reason: chest pain Last Admin: 10/05/17 10:04 Dose: 0.4 mg Sevelamer Carbonate (Renvela) 800 mg PO TIDCC [facility] Last Admin: 10/07/17 16:28 Dose: 800 mg Vitamin B Complex/Vit C/Folic Acid (Nephro-Robyn) 1 tab PO 0800 [facility] Last Admin: 10/07/17 07:52 Dose: 1 tab - Labs Labs: 10/07/17 20:56 10/07/17 20:56 PT 15.2 SECONDS (9.7-12.2) H 10/05/17 10:11 INR 1.3 10/05/17 10:11 APTT 28 SECONDS (21-34) 10/05/17 10:11 - Constitutional Appears: No Acute Distress - Head Exam Head Exam: ATRAUMATIC, NORMAL INSPECTION, NORMOCEPHALIC - Eye Exam Eye Exam: EOMI, Normal appearance, PERRL Pupil Exam: NORMAL ACCOMODATION, PERRL - Respiratory Exam Respiratory Exam: Decreased Breath Sounds - Cardiovascular Exam Cardiovascular Exam: Irregular Rhythm, +S1, +S2 - GI/Abdominal Exam GI & Abdominal Exam: Soft, Normal Bowel Sounds. absent: Tenderness Assessment and Plan (1) Pneumonia Status: Acute (2) ESRD on dialysis Status: Chronic (3) A-fib Status: Acute (4) Gram-neg septicemia Status: Acute
--- NOTE | 2017-10-08 00:19 | CP.PCM.PN ---
Subjective - Date & Time of Evaluation Date of Evaluation: 10/08/17 Time of Evaluation: 00:18 - Subjective Subjective: patient seen and examined Patient with poor peripheral access refusing triple lumen catheter insertion, risks explained to the patient which he understood Objective - Vital Signs/Intake and Output Vital Signs (last 24 hours): Temp Pulse Resp BP Pulse Ox 97.4 F L 64 17 139/63 95 10/07/17 23:53 10/07/17 23:17 10/07/17 23:17 10/07/17 23:17 10/07/17 23:17 Intake and Output: 10/07/17 10/08/17 18:59 06:59 Intake Total 1236.5 768.4 Output Total 350 100 Balance 886.5 668.4 - Medications Medications: Current Medications Diltiazem HCl (Cardizem) 30 mg PO QID [facility] Last Admin: 10/07/17 21:30 Dose: 30 mg Ergocalciferol (Drisdol 50,000 Intl Units Cap) 1 cap PO Q7D [facility] Last Admin: 10/05/17 19:30 Dose: 1 cap Heparin Sodium (Porcine) (Heparin) 5,000 units SC Q12 [facility] Last Admin: 10/07/17 21:30 Dose: 5,000 units Amiodarone HCl 900 mg/ (Dextrose) 500 mls @ 33.33 mls/hr IV .Q15H1M ONE; 1 MG/ MIN PRN Reason: Protocol Stop: 10/08/17 05:00 Last Admin: 10/07/17 14:28 Dose: 33.33 mls/hr Nafcillin Sodium 2 gm/ Sodium (Chloride) 250 mls @ 250 mls/hr IVPB Q6H [facility] PRN Reason: Protocol Last Admin: 10/07/17 21:37 Dose: 250 mls/hr Amiodarone HCl 900 mg/ (Dextrose) 500 mls @ 16.66 mls/hr IV .Q24H ONE; 0.5 MG/ MIN PRN Reason: Protocol Stop: 10/08/17 21:44 Last Admin: 10/07/17 20:30 Dose: 16.66 mls/hr Insulin Aspart (Novolog) 0 unit SC ACHS [facility] PRN Reason: Protocol Last Admin: 10/07/17 22:35 Dose: Not Given Nitroglycerin (Nitrostat Sl Tab) 0.4 mg SL Q5M PRN PRN Reason: chest pain Last Admin: 10/05/17 10:04 Dose: 0.4 mg Sevelamer Carbonate (Renvela) 800 mg PO TIDCC [facility] Last Admin: 10/07/17 16:28 Dose: 800 mg Vitamin B Complex/Vit C/Folic Acid (Nephro-Robyn) 1 tab PO 0800 [facility] Last Admin: 10/07/17 07:52 Dose: 1 tab - Labs Labs: 10/07/17 20:56 10/07/17 20:56 PT 15.2 SECONDS (9.7-12.2) H 10/05/17 10:11 INR 1.3 10/05/17 10:11 APTT 28 SECONDS (21-34) 10/05/17 10:11
[2017-10-08 06:29] LABS: CALCIUM 6.2 mg/dl (8.6-10.4)
[2017-10-08 08:06] LABS: CALCIUM 8.1 mg/dl (8.6-10.4)
[2017-10-08] MEDS: (Novolog) Insulin Aspart, Recombinant 100 u/ml 10 ml vial SC SCH ×4 (08:16→21:43)
[2017-10-08] MEDS: Multivitamin Vitamin B Complex (Nephro-Vite) Tab PO SCH (08:23)
--- NOTE | 2017-10-08 09:28 | CP.PCM.PN ---
Subjective - Date & Time of Evaluation Date of Evaluation: 10/08/17 Time of Evaluation: 09:21 - Subjective Subjective: No events, restarted on amiodarone drip for afib rvr. Denies sob, chest pain. Objective - Vital Signs/Intake and Output Vital Signs (last 24 hours): Temp Pulse Resp BP Pulse Ox 97.4 F L 67 17 142/69 96 10/07/17 23:53 10/08/17 08:17 10/08/17 08:17 10/08/17 08:17 10/08/17 08:17 Intake and Output: 10/08/17 10/08/17 06:59 18:59 Intake Total 1205.2 33.4 Output Total 100 Balance 1105.2 33.4 - Medications Medications: Current Medications Diltiazem HCl (Cardizem) 30 mg PO QID [facility] Last Admin: 10/07/17 21:30 Dose: 30 mg Ergocalciferol (Drisdol 50,000 Intl Units Cap) 1 cap PO Q7D [facility] Last Admin: 10/05/17 19:30 Dose: 1 cap Heparin Sodium (Porcine) (Heparin) 5,000 units SC Q12 [facility] Last Admin: 10/07/17 21:30 Dose: 5,000 units Nafcillin Sodium 2 gm/ Sodium (Chloride) 250 mls @ 250 mls/hr IVPB Q6H [facility] PRN Reason: Protocol Last Admin: 10/08/17 04:04 Dose: 250 mls/hr Amiodarone HCl 900 mg/ (Dextrose) 500 mls @ 16.66 mls/hr IV .Q24H ONE; 0.5 MG/ MIN PRN Reason: Protocol Stop: 10/08/17 21:44 Last Admin: 10/07/17 20:30 Dose: 16.66 mls/hr Insulin Aspart (Novolog) 0 unit SC ACHS [facility] PRN Reason: Protocol Last Admin: 10/08/17 08:16 Dose: Not Given Nitroglycerin (Nitrostat Sl Tab) 0.4 mg SL Q5M PRN PRN Reason: chest pain Last Admin: 10/05/17 10:04 Dose: 0.4 mg Sevelamer Carbonate (Renvela) 800 mg PO TIDCC [facility] Last Admin: 10/08/17 08:23 Dose: 800 mg Vitamin B Complex/Vit C/Folic Acid (Nephro-Robyn) 1 tab PO 0800 [facility] Last Admin: 10/08/17 08:23 Dose: 1 tab - Labs Labs: 10/07/17 20:56 10/08/17 07:36 PT 15.2 SECONDS (9.7-12.2) H 10/05/17 10:11 INR 1.3 10/05/17 10:11 APTT 28 SECONDS (21-34) 10/05/17 10:11 - Additional Findings Additional findings: * HEENT NIC * Neck supple * Chest Clear, right side permacath removed * CVS Regular, no gallop or murmur * PA soft, nt bs present * Ext no edema left arm av fistula * 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 Plan: * Supportive care * ABX for staph, may need tombstone setter, may need picc, will discuss duration with ID * Po amiodarone after drip * GI/DVT prophylaxis * HD TTS * See orders for detail.
--- NOTE | 2017-10-08 20:50 | CP.PCM.PN ---
Subjective - Date & Time of Evaluation Date of Evaluation: 10/08/17 Time of Evaluation: 20:49 - Subjective Subjective: Nephrology Follow up Assessment: critical Staph Aureus Sepsis likely due to permacath infection Pneumonia, Chest pain, thrombocytopenia Hypertensive Chronic Kidney Disease (I12.0) End stage renal disease (N18.6) dependence on hemodialysis (Z99.2) (TTS) via AVG Anemia (D64.9), Hyperphosphatemia (E83.39), Secondary Hyperparathyroidism (E21.1 ), HTN (I12.0) Ex-smoker CHF, A. fib, history of DVT status post IVC filter, COPD, Mediastinal adenopathy Plan: seen on HD TTS cont nephrovite LACIE on hold Continue with phos binders home dose BP stable monitor AVG S: feels ok no n/v Physical Examination: General Appearance: Comfortable, in no acute respiratory distress, co-operative . Vitals reviewed and noted as below Head; Atraumatic, normocephalic ENT: no ulcers no thrush. Tongue is midline. Oropharynx: no rash or ulcers. EYES: Pupils are equal, round and reactive to light accommodation. Eye muscles and extraocular movement intact. Sclera is anicteric. Neck; supple no lymphadenopathy, no thyromegaly or bruit Lungs: Normal respiratory rate/effort. ctab/l Heart: Normal rate. s1s2 normal. No rub or gallop. Extremities: no edema. No varicose veins Neurological: Patient is alert, awake and oriented to person, place and time. No focal deficit. Strength bilateral appropriate and equal Skin: Warm and dry. Normal turgor. No rash. Palpitation: Normal elasticity for age Abdomen: Abdomen is soft. Bowel sounds +. There is no abdominal tenderness, no guarding/rigidity or organomegaly Psych: normal insight and normal affect/mood MSK: no joint tenderness or swelling. Digits and nails normal, no deformity : kidney or bladder not palpable Access: Left AV graft with thrill and bruit. Labs/imaging reviewed. Past medical history, past surgical history, family history, social history, allergy reviewed and noted as below Family Hx: no hx of CKD. Non contributory Objective - Vital Signs/Intake and Output Vital Signs (last 24 hours): Temp Pulse Resp BP Pulse Ox 98.4 F 67 22 148/74 95 10/08/17 20:00 10/08/17 20:17 10/08/17 20:17 10/08/17 20:17 10/08/17 20:17 Intake and Output: 10/08/17 10/09/17 18:59 06:59 Intake Total 1075.4 28.7 Output Total 250 Balance 825.4 28.7 - Medications Medications: Current Medications Amiodarone HCl (Cordarone) 200 mg PO BID [facility] Last Admin: 10/08/17 17:44 Dose: 200 mg Diltiazem HCl (Cardizem) 30 mg PO QID [facility] Last Admin: 10/08/17 17:39 Dose: 30 mg Ergocalciferol (Drisdol 50,000 Intl Units Cap) 1 cap PO Q7D [facility] Last Admin: 10/05/17 19:30 Dose: 1 cap Heparin Sodium (Porcine) (Heparin) 5,000 units SC Q12 [facility] Last Admin: 10/08/17 10:00 Dose: 5,000 units Nafcillin Sodium 2 gm/ Sodium (Chloride) 250 mls @ 250 mls/hr IVPB Q6H [facility] PRN Reason: Protocol Last Admin: 10/08/17 16:26 Dose: 250 mls/hr Insulin Aspart (Novolog) 0 unit SC ACHS [facility] PRN Reason: Protocol Last Admin: 10/08/17 16:23 Dose: Not Given Nitroglycerin (Nitrostat Sl Tab) 0.4 mg SL Q5M PRN PRN Reason: chest pain Last Admin: 10/05/17 10:04 Dose: 0.4 mg Sevelamer Carbonate (Renvela) 800 mg PO TIDCC [facility] Last Admin: 10/08/17 16:26 Dose: 800 mg Vitamin B Complex/Vit C/Folic Acid (Nephro-Robyn) 1 tab PO 0800 [facility] Last Admin: 10/08/17 08:23 Dose: 1 tab - Labs Labs: 10/07/17 20:56 10/08/17 07:36 PT 15.2 SECONDS (9.7-12.2) H 10/05/17 10:11 INR 1.3 10/05/17 10:11 APTT 28 SECONDS (21-34) 10/05/17 10:11
--- NOTE | 2017-10-08 22:02 | CP.PCM.PN ---
Subjective - Date & Time of Evaluation Date of Evaluation: 10/08/17 Time of Evaluation: 14:30 - Subjective Subjective: Pt is seen and examined today Objective - Vital Signs/Intake and Output Vital Signs (last 24 hours): Temp Pulse Resp BP Pulse Ox 98.4 F 75 15 155/80 H 97 10/08/17 20:00 10/08/17 21:52 10/08/17 21:52 10/08/17 21:52 10/08/17 21:52 Intake and Output: 10/08/17 10/09/17 18:59 06:59 Intake Total 1075.4 148.7 Output Total 250 Balance 825.4 148.7 - Medications Medications: Current Medications Amiodarone HCl (Cordarone) 200 mg PO BID [facility] Last Admin: 10/08/17 17:44 Dose: 200 mg Diltiazem HCl (Cardizem) 30 mg PO QID [facility] Last Admin: 10/08/17 21:47 Dose: 30 mg Ergocalciferol (Drisdol 50,000 Intl Units Cap) 1 cap PO Q7D [facility] Last Admin: 10/05/17 19:30 Dose: 1 cap Nafcillin Sodium 2 gm/ Sodium (Chloride) 250 mls @ 250 mls/hr IVPB Q6H [facility] PRN Reason: Protocol Last Admin: 10/08/17 21:47 Dose: 250 mls/hr Insulin Aspart (Novolog) 0 unit SC ACHS [facility] PRN Reason: Protocol Last Admin: 10/08/17 21:43 Dose: Not Given Nitroglycerin (Nitrostat Sl Tab) 0.4 mg SL Q5M PRN PRN Reason: chest pain Last Admin: 10/05/17 10:04 Dose: 0.4 mg Sevelamer Carbonate (Renvela) 800 mg PO TIDCC [facility] Last Admin: 10/08/17 16:26 Dose: 800 mg Vitamin B Complex/Vit C/Folic Acid (Nephro-Robyn) 1 tab PO 0800 [facility] Last Admin: 10/08/17 08:23 Dose: 1 tab - Labs Labs: 10/07/17 20:56 10/08/17 07:36 PT 15.2 SECONDS (9.7-12.2) H 10/05/17 10:11 INR 1.3 10/05/17 10:11 APTT 28 SECONDS (21-34) 10/05/17 10:11 Assessment and Plan (1) Pneumonia Status: Acute (2) ESRD on dialysis Status: Chronic (3) A-fib Status: Acute (4) Gram-neg septicemia Status: Acute
--- NOTE | 2017-10-08 23:15 | CP.PCM.PN ---
Subjective - Date & Time of Evaluation Date of Evaluation: 10/08/17 Time of Evaluation: 19:40 - Subjective Subjective: Patient seen and evaluated Bacteremia Paraxysmal A Fib On Amiodorone For LUKE tomorrow at 11am Objective - Vital Signs/Intake and Output Vital Signs (last 24 hours): Temp Pulse Resp BP Pulse Ox 98.4 F 81 26 H 171/87 H 94 L 10/08/17 20:00 10/08/17 22:17 10/08/17 22:17 10/08/17 22:17 10/08/17 22:17 Intake and Output: 10/08/17 10/09/17 18:59 06:59 Intake Total 1075.4 148.7 Output Total 250 Balance 825.4 148.7 - Medications Medications: Current Medications Amiodarone HCl (Cordarone) 200 mg PO BID [facility] Last Admin: 10/08/17 17:44 Dose: 200 mg Diltiazem HCl (Cardizem) 30 mg PO QID [facility] Last Admin: 10/08/17 21:47 Dose: 30 mg Ergocalciferol (Drisdol 50,000 Intl Units Cap) 1 cap PO Q7D [facility] Last Admin: 10/05/17 19:30 Dose: 1 cap Nafcillin Sodium 2 gm/ Sodium (Chloride) 250 mls @ 250 mls/hr IVPB Q6H [facility] PRN Reason: Protocol Last Admin: 10/08/17 21:47 Dose: 250 mls/hr Insulin Aspart (Novolog) 0 unit SC ACHS [facility] PRN Reason: Protocol Last Admin: 10/08/17 21:43 Dose: Not Given Nitroglycerin (Nitrostat Sl Tab) 0.4 mg SL Q5M PRN PRN Reason: chest pain Last Admin: 10/05/17 10:04 Dose: 0.4 mg Sevelamer Carbonate (Renvela) 800 mg PO TIDCC [facility] Last Admin: 10/08/17 16:26 Dose: 800 mg Vitamin B Complex/Vit C/Folic Acid (Nephro-Robyn) 1 tab PO 0800 [facility] Last Admin: 10/08/17 08:23 Dose: 1 tab - Labs Labs: 10/07/17 20:56 10/08/17 07:36 PT 15.2 SECONDS (9.7-12.2) H 10/05/17 10:11 INR 1.3 10/05/17 10:11 APTT 28 SECONDS (21-34) 10/05/17 10:11
--- NOTE | 2017-10-08 23:15 | CP.PCM.PN ---
Subjective - Date & Time of Evaluation Date of Evaluation: 10/07/17 Time of Evaluation: 10:15 - Subjective Subjective: Patient seen and evaluated Bacteremia Paraxysmal A Fib On Amiodorone Objective - Vital Signs/Intake and Output Vital Signs (last 24 hours): Temp Pulse Resp BP Pulse Ox 98.4 F 81 26 H 171/87 H 94 L 10/08/17 20:00 10/08/17 22:17 10/08/17 22:17 10/08/17 22:17 10/08/17 22:17 Intake and Output: 10/08/17 10/09/17 18:59 06:59 Intake Total 1075.4 148.7 Output Total 250 Balance 825.4 148.7 - Medications Medications: Current Medications Amiodarone HCl (Cordarone) 200 mg PO BID [facility] Last Admin: 10/08/17 17:44 Dose: 200 mg Diltiazem HCl (Cardizem) 30 mg PO QID [facility] Last Admin: 10/08/17 21:47 Dose: 30 mg Ergocalciferol (Drisdol 50,000 Intl Units Cap) 1 cap PO Q7D [facility] Last Admin: 10/05/17 19:30 Dose: 1 cap Nafcillin Sodium 2 gm/ Sodium (Chloride) 250 mls @ 250 mls/hr IVPB Q6H [facility] PRN Reason: Protocol Last Admin: 10/08/17 21:47 Dose: 250 mls/hr Insulin Aspart (Novolog) 0 unit SC ACHS [facility] PRN Reason: Protocol Last Admin: 10/08/17 21:43 Dose: Not Given Nitroglycerin (Nitrostat Sl Tab) 0.4 mg SL Q5M PRN PRN Reason: chest pain Last Admin: 10/05/17 10:04 Dose: 0.4 mg Sevelamer Carbonate (Renvela) 800 mg PO TIDCC [facility] Last Admin: 10/08/17 16:26 Dose: 800 mg Vitamin B Complex/Vit C/Folic Acid (Nephro-Robyn) 1 tab PO 0800 [facility] Last Admin: 10/08/17 08:23 Dose: 1 tab - Labs Labs: 10/07/17 20:56 10/08/17 07:36 PT 15.2 SECONDS (9.7-12.2) H 10/05/17 10:11 INR 1.3 10/05/17 10:11 APTT 28 SECONDS (21-34) 10/05/17 10:11
[2017-10-09 06:41] LABS: BASO # 0.1 K/uL (0.0-0.2); BASO % 0.8 % (0.0-2.0); EOS # 1.4 K/uL (0.0-0.7); EOS % 18.6 % (0.0-4.0); HEMOGLOBIN 11.7 g/dL (12.0-18.0); LYMPH # 1.2 K/uL (1.0-4.3); LYMPH % 15.6 % (20.0-40.0); MEAN CELL VOLUME 89.4 fL (80.0-94.0); MEAN CORPUSCULAR HEMOGLOBIN 29.7 pg (27.0-31.0); MEAN CORPUSCULAR HGB CONC 33.2 g/dL (33.0-37.0); MONO # 0.9 K/uL (0.0-0.8); MONO % 12.4 % (0.0-10.0); NEUT % 52.6 % (50.0-75.0); NRBC % 0.2 % (0.0-2.0); RBC 3.94 Mil/uL (4.40-5.90); RED CELL DISTRIBUTION WIDTH 16.5 % (11.5-14.5); WHITE BLOOD COUNT 7.6 K/uL (4.8-10.8)
[2017-10-09 06:51] LABS: INR 1.2; PROTHROMBIN TIME 12.9 SECONDS (9.7-12.2)
[2017-10-09] MEDS: Multivitamin Vitamin B Complex (Nephro-Vite) Tab PO SCH (07:49)
[2017-10-09] MEDS: (Novolog) Insulin Aspart, Recombinant 100 u/ml 10 ml vial SC SCH ×2 (07:50→11:30)
[2017-10-09 07:55] LABS: ALB/GLOB RATIO 0.9 (1.0-2.1); ALBUMIN 3.2 g/dL (3.5-5.0); ALT/SGPT < 6 U/L (21-72); AST/SGOT 40 U/L (17-59); BLOOD UREA NITROGEN 38 mg/dL (9-20); CALCIUM 7.7 mg/dl (8.6-10.4); GFR AFRICAN-AMERICAN 15; GFR NON-AFRICAN AMERICAN 13
[2017-10-09] MEDS ORDERED: Propofol 10 mg/ml Inj (20 ML) ONE (10:36)
[2017-10-09] MEDS ORDERED: Midazolam 2 MG/2 ML VIAL ONE (10:36)
[2017-10-09] MEDS ORDERED: ePHEDrine 50 mg/ml Inj ONE (10:37)
[2017-10-09] MEDS ORDERED: Etomidate 20 mg/10ml Inj IV ONE ×2 (10:37→10:38)
[2017-10-09] MEDS ORDERED: Phenylephrine 10 mg/ml Inj ONE (10:37)
--- NOTE | 2017-10-09 10:42 | CP.PCM.PN ---
Subjective - Date & Time of Evaluation Date of Evaluation: 10/09/17 Time of Evaluation: 08:00 - Subjective Subjective: MSSA BACTEREMIA/ SEPSIS LUKE IN PROGRESS IV RX RENEWED Objective - Vital Signs/Intake and Output Vital Signs (last 24 hours): Temp Pulse Resp BP Pulse Ox 97.9 F 73 18 153/71 H 99 10/09/17 08:00 10/09/17 10:24 10/09/17 10:24 10/09/17 10:24 10/09/17 10:24 Intake and Output: 10/09/17 10/09/17 06:59 18:59 Intake Total 398.7 350 Output Total 301 Balance 97.7 350 - Medications Medications: Current Medications Amiodarone HCl (Cordarone) 200 mg PO BID [facility] Last Admin: 10/09/17 09:09 Dose: 200 mg Diltiazem HCl (Cardizem) 30 mg PO QID [facility] Last Admin: 10/09/17 09:09 Dose: 30 mg Ergocalciferol (Drisdol 50,000 Intl Units Cap) 1 cap PO Q7D [facility] Last Admin: 10/05/17 19:30 Dose: 1 cap Nafcillin Sodium 2 gm/ Sodium (Chloride) 250 mls @ 250 mls/hr IVPB Q6H [facility] PRN Reason: Protocol Last Admin: 10/09/17 09:10 Dose: 250 mls/hr Insulin Aspart (Novolog) 0 unit SC ACHS [facility] PRN Reason: Protocol Last Admin: 10/09/17 07:50 Dose: Not Given Nitroglycerin (Nitrostat Sl Tab) 0.4 mg SL Q5M PRN PRN Reason: chest pain Last Admin: 10/05/17 10:04 Dose: 0.4 mg Sevelamer Carbonate (Renvela) 800 mg PO TIDCC [facility] Last Admin: 10/09/17 07:49 Dose: Not Given Vitamin B Complex/Vit C/Folic Acid (Nephro-Robyn) 1 tab PO 0800 [facility] Last Admin: 10/09/17 07:49 Dose: 1 tab - Labs Labs: 10/09/17 06:34 10/09/17 06:34 PT 12.9 SECONDS (9.7-12.2) H 10/09/17 06:34 INR 1.2 10/09/17 06:34 APTT 20 SECONDS (21-34) L 10/09/17 06:34 - Constitutional Appears: No Acute Distress, Chronically Ill - Head Exam Head Exam: NORMOCEPHALIC - Eye Exam Eye Exam: PERRL - ENT Exam ENT Exam: Mucous Membranes Dry - Neck Exam Neck Exam: absent: Lymphadenopathy - Respiratory Exam Respiratory Exam: Decreased Breath Sounds, Rhonchi - Cardiovascular Exam Cardiovascular Exam: REGULAR RHYTHM, +S1, +S2 - GI/Abdominal Exam GI & Abdominal Exam: Distended, Soft - Rectal Exam Rectal Exam: Deferred - Exam Exam: NORMAL INSPECTION - Extremities Exam Extremities Exam: absent: Pedal Edema - Back Exam Back Exam: absent: CVA tenderness (L), CVA tenderness (R) - Neurological Exam Neurological Exam: Alert, Awake, Oriented x3 Neuro motor strength exam: Left Upper Extremity: 3, Right Upper Extremity: 3, Left Lower Extremity: 3, Right Lower Extremity: 3 - Psychiatric Exam Psychiatric exam: Depressed - Skin Skin Exam: Dry Assessment and Plan (1) Pneumonia Status: Acute (2) AV fistula occlusion Status: Acute (3) Anemia Status: Acute (4) Sepsis Status: Acute - Assessment and Plan (Free Text) Assessment: RX IV RX FOR 6 WEEKS
[2017-10-09] MEDS ORDERED: Lidocaine 4% (Laryng-O-Jet) Kit MM ONE (10:48)
--- NOTE | 2017-10-09 10:57 | CP.CCUPN ---
CCU Subjective - Physician Review Subjective (Free Text): 10/09/17 10:55 Patient seen and examined at bedside. Per nursing no acute events overnight. Patient is doing well, no chest pain, off amiodarone drip. NPO for LUKE today. Denies headaches, dizziness, cp, palpitations, sob, abdominal pain, urinary symptoms. CCU Objective - Vital Signs / Intake & Output Vital Signs (Last 4 hours): Vital Signs Temp Pulse Resp BP Pulse Ox 10/09/17 10:24 73 18 153/71 H 99 10/09/17 10:00 58 L 17 98 10/09/17 09:17 63 13 146/72 98 10/09/17 08:17 59 L 18 133/63 96 10/09/17 08:00 97.9 F 10/09/17 07:17 61 21 138/72 94 L 10/09/17 07:00 72 21 96 Intake and Output (Last 8hrs): Intake & Output 10/08/17 10/09/17 10/09/17 22:59 06:59 14:59 Intake Total 465.5 250 350 Output Total 100 301 Balance 365.5 -51 350 Weight 71.6 kg Intake: Intake, IV Amount 95.5 250 250 Right External Jugular 95.5 250 250 Oral 370 100 Output: Urine 100 300 Urine, Voided 100 300 Urine/Stool Mix 1 Other: # Bowel Movements 0 - Physical Exam Head: Positive for: Atraumatic, Normocephalic Pupils: Positive for: PERRL Extroacular Muscles: Positive for: EOMI Conjunctiva: Positive for: Normal Mouth: Positive for: Moist Mucous Membranes Neck: Positive for: Other (+EJ) Respiratory/Chest: Positive for: Clear to Auscultation, Good Air Exchange. Negative for: Accessory Muscle Use Cardiovascular: Positive for: Regular Rate and Rhythm, Normal S1, S2 Abdomen: Positive for: Normal Bowel Sounds. Negative for: Tenderness, Peritoneal Signs Upper Extremity: Positive for: Normal Inspection, Other (L AVF) Lower Extremity: Positive for: Normal Inspection Skin: Positive for: Warm, Dry, Normal Color Psychiatric: Positive for: Alert, Oriented x 3 - Medications Active Medications: Active Medications Generic Name Dose Route Start Last Admin Trade Name Freq PRN Reason Stop Dose Admin Amiodarone HCl 200 mg 10/08/17 18:00 10/09/17 09:09 Cordarone PO 200 mg BID [facility] Administration Diltiazem HCl 30 mg 10/07/17 13:30 10/09/17 09:09 Cardizem PO 30 mg QID [facility] Administration Ergocalciferol 1 cap 10/05/17 18:15 10/05/17 19:30 Drisdol 50,000 Intl Units Cap PO 1 cap Q7D [facility] Administration Nafcillin Sodium 2 gm/ Sodium 250 mls @ 250 mls/hr 10/07/17 16:00 10/09/17 09 :10 Chloride IVPB 250 mls/hr Q6H [facility] Administration Protocol Insulin Aspart 0 unit 10/06/17 07:30 10/09/17 07:50 Novolog SC Not Given ACHS [facility] Protocol Nitroglycerin 0.4 mg 10/05/17 09:52 10/05/17 10:04 Nitrostat Sl Tab SL 0.4 mg Q5M PRN Administration chest pain Sevelamer Carbonate 800 mg 10/04/17 08:15 10/09/17 07:49 Renvela PO Not Given TIDCC [facility] Vitamin B Complex/Vit C/Folic Acid 1 tab 10/05/17 08:00 10/09/17 07:49 Nephro-Robyn PO 1 tab 0800 [facility] Administration - Patient Studies Lab Studies: Microbiology Studies 10/07/17 20:30 Blood Culture - Preliminary Blood-Venous NO GROWTH AFTER 24 HOURS 10/07/17 20:00 Blood Culture - Preliminary Blood-Venous NO GROWTH AFTER 24 HOURS Lab Studies 10/09/17 10/09/17 10/09/17 Range/Units 07:32 06:34 06:34 WBC (4.8-10.8) K/uL RBC (4.40-5.90) Mil/uL Hgb (12.0-18.0) g/dL Hct (35.0-51.0) % MCV (80.0-94.0) fL MCH (27.0-31.0) pg MCHC (33.0-37.0) g/dL RDW (11.5-14.5) % Plt Count (130-400) K/uL MPV (7.2-11.7) fL Neut % (Auto) (50.0-75.0) % Lymph % (Auto) (20.0-40.0) % Chaves % (Auto) (0.0-10.0) % Eos % (Auto) (0.0-4.0) % Baso % (Auto) (0.0-2.0) % Neut # (Auto) (1.8-7.0) K/uL Lymph # (Auto) (1.0-4.3) K/uL Chaves # (Auto) (0.0-0.8) K/uL Eos # (Auto) (0.0-0.7) K/uL Baso # (Auto) (0.0-0.2) K/uL PT 12.9 H (9.7-12.2) SECONDS INR 1.2 APTT 20 L (21-34) SECONDS Sodium 140 (132-148) mmol/L Potassium 4.8 (3.6-5.2) mmol/L Chloride 106 (98-107) mmol/L Carbon Dioxide 21 L (22-30) mmol/L Anion Gap 19 (10-20) BUN 38 H (9-20) mg/dL Creatinine 4.6 H (0.8-1.5) mg/dL Est GFR ( Amer) 15 Est GFR (Non-Af Amer) 13 POC Glucose (mg/dL) 72 (65-110) mg/dL Random Glucose 76 (75-110) mg/dL Calcium 7.7 L (8.6-10.4) mg/dl Phosphorus 3.2 (2.5-4.5) mg/dL Magnesium 2.1 (1.6-2.3) mg/dL Total Bilirubin 1.1 (0.2-1.3) mg/dL AST 40 (17-59) U/L ALT < 6 L (21-72) U/L Alkaline Phosphatase 58 (38-126) U/L Total Protein 6.6 (6.3-8.3) g/dL Albumin 3.2 L D (3.5-5.0) g/dL Globulin 3.4 (2.2-3.9) gm/dL Albumin/Globulin Ratio 0.9 L (1.0-2.1) UF Heparin Interp (Negative) [facility] Low Dose 0.1 % Release [facility] Low Dose 0.5 % Release [facility] High Dose 100 % Release 10/09/17 10/08/17 10/08/17 Range/Units 06:34 21:11 16:07 WBC 7.6 (4.8-10.8) K/uL RBC 3.94 L (4.40-5.90) Mil/uL Hgb 11.7 L (12.0-18.0) g/dL Hct 35.3 (35.0-51.0) % MCV 89.4 (80.0-94.0) fL MCH 29.7 (27.0-31.0) pg MCHC 33.2 (33.0-37.0) g/dL RDW 16.5 H (11.5-14.5) % Plt Count 130 (130-400) K/uL MPV 9.0 (7.2-11.7) fL Neut % (Auto) 52.6 (50.0-75.0) % Lymph % (Auto) 15.6 L (20.0-40.0) % Chaves % (Auto) 12.4 H (0.0-10.0) % Eos % (Auto) 18.6 H (0.0-4.0) % Baso % (Auto) 0.8 (0.0-2.0) % Neut # (Auto) 4.0 (1.8-7.0) K/uL Lymph # (Auto) 1.2 (1.0-4.3) K/uL Chaves # (Auto) 0.9 H (0.0-0.8) K/uL Eos # (Auto) 1.4 H (0.0-0.7) K/uL Baso # (Auto) 0.1 (0.0-0.2) K/uL PT (9.7-12.2) SECONDS INR APTT (21-34) SECONDS Sodium (132-148) mmol/L Potassium (3.6-5.2) mmol/L Chloride (98-107) mmol/L Carbon Dioxide (22-30) mmol/L Anion Gap (10-20) BUN (9-20) mg/dL Creatinine (0.8-1.5) mg/dL Est GFR ( Amer) Est GFR (Non-Af Amer) POC Glucose (mg/dL) 120 H 106 (65-110) mg/dL Random Glucose (75-110) mg/dL Calcium (8.6-10.4) mg/dl Phosphorus (2.5-4.5) mg/dL Magnesium (1.6-2.3) mg/dL Total Bilirubin (0.2-1.3) mg/dL AST (17-59) U/L ALT (21-72) U/L Alkaline Phosphatase (38-126) U/L Total Protein (6.3-8.3) g/dL Albumin (3.5-5.0) g/dL Globulin (2.2-3.9) gm/dL Albumin/Globulin Ratio (1.0-2.1) UF Heparin Interp (Negative) [facility] Low Dose 0.1 % Release [facility] Low Dose 0.5 % Release [facility] High Dose 100 % Release 10/08/17 10/04/17 Range/Units 11:25 10:47 WBC (4.8-10.8) K/uL RBC (4.40-5.90) Mil/uL Hgb (12.0-18.0) g/dL Hct (35.0-51.0) % MCV (80.0-94.0) fL MCH (27.0-31.0) pg MCHC (33.0-37.0) g/dL RDW (11.5-14.5) % Plt Count (130-400) K/uL MPV (7.2-11.7) fL Neut % (Auto) (50.0-75.0) % Lymph % (Auto) (20.0-40.0) % Chaves % (Auto) (0.0-10.0) % Eos % (Auto) (0.0-4.0) % Baso % (Auto) (0.0-2.0) % Neut # (Auto) (1.8-7.0) K/uL Lymph # (Auto) (1.0-4.3) K/uL Chaves # (Auto) (0.0-0.8) K/uL Eos # (Auto) (0.0-0.7) K/uL Baso # (Auto) (0.0-0.2) K/uL PT (9.7-12.2) SECONDS INR APTT (21-34) SECONDS Sodium (132-148) mmol/L Potassium (3.6-5.2) mmol/L Chloride (98-107) mmol/L Carbon Dioxide (22-30) mmol/L Anion Gap (10-20) BUN (9-20) mg/dL Creatinine (0.8-1.5) mg/dL Est GFR ( Amer) Est GFR (Non-Af Amer) POC Glucose (mg/dL) 91 (65-110) mg/dL Random Glucose (75-110) mg/dL Calcium (8.6-10.4) mg/dl Phosphorus (2.5-4.5) mg/dL Magnesium (1.6-2.3) mg/dL Total Bilirubin (0.2-1.3) mg/dL AST (17-59) U/L ALT (21-72) U/L Alkaline Phosphatase (38-126) U/L Total Protein (6.3-8.3) g/dL Albumin (3.5-5.0) g/dL Globulin (2.2-3.9) gm/dL Albumin/Globulin Ratio (1.0-2.1) UF Heparin Interp Negative (Negative) [facility] Low Dose 0.1 6 % Release [facility] Low Dose 0.5 2 % Release [facility] High Dose 100 0 % Release Laboratory Results - last 24 hr 10/04/17 10/08/17 10/08/17 10:47 11:25 16:07 WBC RBC Hgb Hct MCV MCH MCHC RDW Plt Count MPV Neut % (Auto) Lymph % (Auto) Chaves % (Auto) Eos % (Auto) Baso % (Auto) Neut # (Auto) Lymph # (Auto) Chaves # (Auto) Eos # (Auto) Baso # (Auto) PT INR APTT Sodium Potassium Chloride Carbon Dioxide Anion Gap BUN Creatinine Est GFR ( Amer) Est GFR (Non-Af Amer) POC Glucose (mg/dL) 91 106 Random Glucose Calcium Phosphorus Magnesium Total Bilirubin AST ALT Alkaline Phosphatase Total Protein Albumin Globulin Albumin/Globulin Ratio UF Heparin Interp Negative [facility] Low Dose 0.1 6 [facility] Low Dose 0.5 2 [facility] High Dose 100 0 10/08/17 10/09/17 10/09/17 21:11 06:34 06:34 WBC 7.6 RBC 3.94 L Hgb 11.7 L Hct 35.3 MCV 89.4 MCH 29.7 MCHC 33.2 RDW 16.5 H Plt Count 130 MPV 9.0 Neut % (Auto) 52.6 Lymph % (Auto) 15.6 L Chaves % (Auto) 12.4 H Eos % (Auto) 18.6 H Baso % (Auto) 0.8 Neut # (Auto) 4.0 Lymph # (Auto) 1.2 Chaves # (Auto) 0.9 H Eos # (Auto) 1.4 H Baso # (Auto) 0.1 PT INR APTT Sodium 140 Potassium 4.8 Chloride 106 Carbon Dioxide 21 L Anion Gap 19 BUN 38 H Creatinine 4.6 H Est GFR ( Amer) 15 Est GFR (Non-Af Amer) 13 POC Glucose (mg/dL) 120 H Random Glucose 76 Calcium 7.7 L Phosphorus 3.2 Magnesium 2.1 Total Bilirubin 1.1 AST 40 ALT < 6 L Alkaline Phosphatase 58 Total Protein 6.6 Albumin 3.2 L D Globulin 3.4 Albumin/Globulin Ratio 0.9 L UF Heparin Interp [facility] Low Dose 0.1 [facility] Low Dose 0.5 [facility] High Dose 100 10/09/17 10/09/17 06:34 07:32 WBC RBC Hgb Hct MCV MCH MCHC RDW Plt Count MPV Neut % (Auto) Lymph % (Auto) Chaves % (Auto) Eos % (Auto) Baso % (Auto) Neut # (Auto) Lymph # (Auto) Chaves # (Auto) Eos # (Auto) Baso # (Auto) PT 12.9 H INR 1.2 APTT 20 L Sodium Potassium Chloride Carbon Dioxide Anion Gap BUN Creatinine Est GFR ( Amer) Est GFR (Non-Af Amer) POC Glucose (mg/dL) 72 Random Glucose Calcium Phosphorus Magnesium Total Bilirubin AST ALT Alkaline Phosphatase Total Protein Albumin Globulin Albumin/Globulin Ratio UF Heparin Interp [facility] Low Dose 0.1 [facility] Low Dose 0.5 [facility] High Dose 100 Fingerstick Blood Sugar Results: 72 Critical Care Progress Note - Nutrition Nutrition: Nutrition Category Date Time Status NPO Diet [DIET] Diets 10/09/17 Breakfast Active Assessment/Plan - Assessment and Plan (Free Text) Assessment: Patient is a 67 year old male with past medical history of ESRD on HD (TTS) presented to the hospital intially for cough and pleuritic chest pain x 3 days. Found to have gram positive bacteremia. While in hemodialysis patient developed 10/10 chest pain. Was started on Amiodarone and nitroglycerin drip. Transferred to the ICU for further management. Neurology: -Patient is AAOx3 -No acute issues at this time -Will transfer out ICU later today Cardiology: -Patient with paroxysmal afib -Over the weekend, developed SVT during HD and was restarted on amiodarone drip -Currently off amiodarone drip -Continue Cardizem 30mg QID, Amiodarone 200mg PO BID -Troponins negative -Patient for LUKE today -Cardiology on consult, help appreciated Respiratory: -No acute issues at this time Renal: -Patient has history of ESRD on HD -Nephro on consult, help appreciated -Continue Renvela 800mg TIDCC GI: Diet: Renal diet Infectious Disease: -Patient with gram positive bacteremia -Source likely right chest permacath, removed on 10/05 -Antibiotics: Nafcillin 2gm Q6H -Repeat blood cultures showing no growth x 24 hours -Dr Amado on consult, help appreciated GI/DVT ppx: -SCDs
[2017-10-09] MEDS ORDERED: Dextrose 50% SYRINGE Inj (50 ml) IV STA ×2 (11:35→11:45)
--- NOTE | 2017-10-09 14:54 | CP.PCM.PN ---
Subjective - Date & Time of Evaluation Date of Evaluation: 10/09/17 Time of Evaluation: 14:53 - Subjective Subjective: Nephrology Consultation Note: Assessment: stable MSSAR Sepsis likely due to permacath infection Pneumonia, Chest pain, thrombocytopenia Hypertensive Chronic Kidney Disease (I12.0) End stage renal disease (N18.6) dependence on hemodialysis (Z99.2) (TTS) via AVG Anemia (D64.9), Hyperphosphatemia (E83.39), Secondary Hyperparathyroidism (E21.1 ), HTN (I12.0) Ex-smoker CHF, A. fib, history of DVT status post IVC filter, COPD, Mediastinal adenopathy Plan: Will plan for dialysis tomorrow As per usual TTS schedule. Continue with Nephrovite 1 tab/day. PRBC as needed for anemia. Not on LACIE as, last Hb 11.7 Continue with phos binders home dose BP control with meds as ordered. Patient not on RAAS cecelia as BP low side Glycemic control, Dialysis consistent diet Further work up/management as per primary team Dose meds/antibiotics for ESRD status. Avoid fleets enema/magnesium based laxatives. LUKE done today Thanks for allowing me to participate in care of your patient. Will follow patient with you. Please call if any Qs Dr Dilip Ernandez Office: [phone] Chief Complaint; none now HPI: Pt is a 67 M with hx of ESRD on hemodialysis (TTS) via [facility] @ [facility] [address], last dialysis yesterday, chronic anemia, hyperphosphatemia, secondary hyperparathyroidism, hypertension, Ex-smoker CHF, A. fib, history of DVT status post IVC filter, COPD, Mediastinal adenopathy presented with complaints of Chest pain. Patient was found to have pneumonia and being treated with antibiotics. Also with low platelet counts. Renal consult for ESRD management ROS: Cardiovascular: no chest pain. Pulmonary: No shortness of breath Gastrointestinal: denies abdominal pain No nausea. No vomiting. Genitourinary: No pain while urinating. Denies blood in urine. All other negative except as mentioned in HPI Physical Examination: General Appearance: Comfortable, in no acute respiratory distress, co-operative . Vitals reviewed and noted as below Head; Atraumatic, normocephalic ENT: no ulcers no thrush. Tongue is midline. Oropharynx: no rash or ulcers. EYES: Pupils are equal, round and reactive to light accommodation. Eye muscles and extraocular movement intact. Sclera is anicteric. Neck; supple no lymphadenopathy, no thyromegaly or bruit Lungs: Normal respiratory rate/effort. Breath sounds bilateral Decreased at bases with basilar crackles Heart: Normal rate. s1s2 normal. No rub or gallop. Extremities: no edema. No varicose veins Neurological: Patient is alert, awake and oriented to person, place and time. No focal deficit. Strength bilateral appropriate and equal Skin: Warm and dry. Normal turgor. No rash. Palpitation: Normal elasticity for age Abdomen: Abdomen is soft. Bowel sounds +. There is no abdominal tenderness, no guarding/rigidity or organomegaly Psych: normal insight and normal affect/mood MSK: no joint tenderness or swelling. Digits and nails normal, no deformity : kidney or bladder not palpable Access: Left arm AV graft with thrill and bruit. Labs/imaging reviewed. Past medical history, past surgical history, family history, social history, allergy reviewed and noted as below Family Hx: no hx of CKD. Non contributory Objective - Vital Signs/Intake and Output Vital Signs (last 24 hours): Temp Pulse Resp BP Pulse Ox 97.7 F 53 L 16 113/54 L 100 10/09/17 12:00 10/09/17 13:26 10/09/17 13:26 10/09/17 13:26 10/09/17 13:26 Intake and Output: 10/09/17 10/09/17 06:59 18:59 Intake Total 398.7 700 Output Total 301 100 Balance 97.7 600 - Medications Medications: Current Medications Amiodarone HCl (Cordarone) 200 mg PO BID [facility] Last Admin: 10/09/17 09:09 Dose: 200 mg Diltiazem HCl (Cardizem) 30 mg PO QID [facility] Last Admin: 10/09/17 14:21 Dose: 30 mg Ergocalciferol (Drisdol 50,000 Intl Units Cap) 1 cap PO Q7D [facility] Last Admin: 10/05/17 19:30 Dose: 1 cap Heparin Sodium (Porcine) (Heparin) 5,000 units SC Q12 [facility] Last Admin: 10/09/17 11:55 Dose: 5,000 units Nafcillin Sodium 2 gm/ Sodium (Chloride) 250 mls @ 250 mls/hr IVPB Q6H [facility] PRN Reason: Protocol Last Admin: 10/09/17 09:10 Dose: 250 mls/hr Nitroglycerin (Nitrostat Sl Tab) 0.4 mg SL Q5M PRN PRN Reason: chest pain Last Admin: 10/05/17 10:04 Dose: 0.4 mg Sevelamer Carbonate (Renvela) 800 mg PO TIDCC [facility] Last Admin: 10/09/17 14:21 Dose: 800 mg Vitamin B Complex/Vit C/Folic Acid (Nephro-Robyn) 1 tab PO 0800 [facility] Last Admin: 10/09/17 07:49 Dose: 1 tab - Labs Labs: 10/09/17 06:34 10/09/17 06:34 PT 12.9 SECONDS (9.7-12.2) H 10/09/17 06:34 INR 1.2 10/09/17 06:34 APTT 20 SECONDS (21-34) L 10/09/17 06:34
--- NOTE | 2017-10-09 21:21 | CARD ---
APPROVED REPORT EKG Measurement Heart [id number] <Conclusion> Normal sinus rhythm T wave abnormality, consider inferior ischemia T wave abnormality, consider anterolateral ischemia Abnormal ECG
--- NOTE | 2017-10-09 21:22 | CARD ---
APPROVED REPORT EKG Measurement Heart [id number] WA [id number] <Conclusion> Normal sinus rhythm Biatrial enlargement T wave abnormality, consider anterolateral ischemia Abnormal ECG
--- NOTE | 2017-10-09 23:06 | CP.PCM.PN ---
Subjective - Date & Time of Evaluation Date of Evaluation: 10/09/17 Time of Evaluation: 14:05 - Subjective Subjective: Patient s/p LUKE No evidence of Endocarditis cardiac cath tomorrow NPO after MN Objective - Vital Signs/Intake and Output Vital Signs (last 24 hours): Temp Pulse Resp BP Pulse Ox 97.7 F 71 20 162/70 H 97 10/09/17 18:15 10/09/17 18:15 10/09/17 18:15 10/09/17 18:15 10/09/17 18:15 Intake and Output: 10/09/17 10/10/17 18:59 06:59 Intake Total 1370 100 Output Total 200 Balance 1170 100 - Medications Medications: Current Medications Amiodarone HCl (Cordarone) 200 mg PO BID [facility] Last Admin: 10/09/17 17:31 Dose: 200 mg Diltiazem HCl (Cardizem) 30 mg PO QID [facility] Last Admin: 10/09/17 21:17 Dose: 30 mg Ergocalciferol (Drisdol 50,000 Intl Units Cap) 1 cap PO Q7D [facility] Last Admin: 10/05/17 19:30 Dose: 1 cap Heparin Sodium (Porcine) (Heparin) 5,000 units SC Q12 [facility] Last Admin: 10/09/17 21:17 Dose: Not Given Nafcillin Sodium 2 gm/ Sodium (Chloride) 250 mls @ 250 mls/hr IVPB Q6H [facility] PRN Reason: Protocol Last Admin: 10/09/17 21:39 Dose: 250 mls/hr Nitroglycerin (Nitrostat Sl Tab) 0.4 mg SL Q5M PRN PRN Reason: chest pain Last Admin: 10/05/17 10:04 Dose: 0.4 mg Sevelamer Carbonate (Renvela) 800 mg PO TIDCC [facility] Last Admin: 10/09/17 17:31 Dose: 800 mg Vitamin B Complex/Vit C/Folic Acid (Nephro-Robyn) 1 tab PO 0800 [facility] Last Admin: 10/09/17 07:49 Dose: 1 tab - Labs Labs: 10/09/17 06:34 10/09/17 06:34 PT 12.9 SECONDS (9.7-12.2) H 10/09/17 06:34 INR 1.2 10/09/17 06:34 APTT 20 SECONDS (21-34) L 10/09/17 06:34
[2017-10-10] MEDS: Multivitamin Vitamin B Complex (Nephro-Vite) Tab PO SCH (08:05)
[2017-10-10] MEDS ORDERED: Iodixanol 320 MG/ML 200 ML BOTTLE IV ONE (08:42)
[2017-10-10] MEDS ORDERED: Midazolam 2 MG/2 ML VIAL ONE (08:45)
--- NOTE | 2017-10-10 09:44 | CP.PCM.PN ---
Subjective - Date & Time of Evaluation Date of Evaluation: 10/10/17 Time of Evaluation: 09:43 - Subjective Subjective: Patient s/p Cath Non Obstructive coronaries Normal EF, LVH Will continue Amio, Cardizem, ASA and Statins Patient in NSR Will monitor Objective - Vital Signs/Intake and Output Vital Signs (last 24 hours): Temp Pulse Resp BP Pulse Ox 97.5 F L 61 20 143/73 97 10/10/17 07:15 10/10/17 07:15 10/10/17 07:15 10/10/17 07:15 10/10/17 07:15 Intake and Output: 10/10/17 10/10/17 06:59 18:59 Intake Total 100 Output Total 200 Balance -100 - Medications Medications: Current Medications Amiodarone HCl (Cordarone) 200 mg PO DAILY [facility] Aspirin (Ecotrin) 81 mg PO DAILY [facility] Diltiazem HCl (Cardizem) 30 mg PO QID [facility] Last Admin: 10/09/17 21:17 Dose: 30 mg Ergocalciferol (Drisdol 50,000 Intl Units Cap) 1 cap PO Q7D [facility] Last Admin: 10/05/17 19:30 Dose: 1 cap Heparin Sodium (Porcine) (Heparin) 5,000 units SC Q12 [facility] Last Admin: 10/09/17 21:17 Dose: Not Given Nafcillin Sodium 2 gm/ Sodium (Chloride) 250 mls @ 250 mls/hr IVPB Q6H [facility] PRN Reason: Protocol Last Admin: 10/10/17 05:47 Dose: 250 mls/hr Rosuvastatin Calcium (Crestor) 10 mg PO HS [facility] Sevelamer Carbonate (Renvela) 800 mg PO TIDCC [facility] Last Admin: 10/10/17 08:05 Dose: Not Given Vitamin B Complex/Vit C/Folic Acid (Nephro-Robyn) 1 tab PO 0800 [facility] Last Admin: 10/10/17 08:05 Dose: Not Given - Labs Labs: 10/09/17 06:34 10/09/17 06:34 PT 12.9 SECONDS (9.7-12.2) H 10/09/17 06:34 INR 1.2 10/09/17 06:34 APTT 20 SECONDS (21-34) L 10/09/17 06:34
[2017-10-10 11:23] LABS: BASO % 0.6 % (0.0-2.0); EOS # 1.3 K/uL (0.0-0.7); EOS % 19.7 % (0.0-4.0); HEMOGLOBIN 12.6 g/dL (12.0-18.0); LYMPH # 1.1 K/uL (1.0-4.3); LYMPH % 16.7 % (20.0-40.0); MEAN CELL VOLUME 88.1 fL (80.0-94.0); MEAN CORPUSCULAR HEMOGLOBIN 29.5 pg (27.0-31.0); MEAN CORPUSCULAR HGB CONC 33.4 g/dL (33.0-37.0); MEAN PLATELET VOLUME 8.4 fL (7.2-11.7); MONO # 0.8 K/uL (0.0-0.8); MONO % 11.8 % (0.0-10.0); NEUT # 3.4 K/uL (1.8-7.0); NEUT % 51.2 % (50.0-75.0); RBC 4.29 Mil/uL (4.40-5.90); WHITE BLOOD COUNT 6.6 K/uL (4.8-10.8)
--- NOTE | 2017-10-10 11:23 | CP.PCM.PN ---
Subjective - Date & Time of Evaluation Date of Evaluation: 10/10/17 Time of Evaluation: 06:00 - Subjective Subjective: afeb on iv nafcillin LUKE neg IV rx to continue Objective - Vital Signs/Intake and Output Vital Signs (last 24 hours): Temp Pulse Resp BP Pulse Ox 97.5 F L 61 20 143/73 97 10/10/17 07:15 10/10/17 07:15 10/10/17 07:15 10/10/17 07:15 10/10/17 07:15 Intake and Output: 10/10/17 10/10/17 06:59 18:59 Intake Total 100 Output Total 200 Balance -100 - Medications Medications: Current Medications Amiodarone HCl (Cordarone) 200 mg PO DAILY [facility] Last Admin: 10/10/17 10:42 Dose: 200 mg Aspirin (Ecotrin) 81 mg PO DAILY [facility] Last Admin: 10/10/17 10:41 Dose: 81 mg Diltiazem HCl (Cardizem) 30 mg PO QID [facility] Last Admin: 10/10/17 10:42 Dose: 30 mg Ergocalciferol (Drisdol 50,000 Intl Units Cap) 1 cap PO Q7D [facility] Last Admin: 10/05/17 19:30 Dose: 1 cap Heparin Sodium (Porcine) (Heparin) 5,000 units SC Q12 [facility] Last Admin: 10/10/17 10:43 Dose: Not Given Nafcillin Sodium 2 gm/ Sodium (Chloride) 250 mls @ 250 mls/hr IVPB Q6H [facility] PRN Reason: Protocol Last Admin: 10/10/17 10:41 Dose: 250 mls/hr Rosuvastatin Calcium (Crestor) 10 mg PO HS [facility] Sevelamer Carbonate (Renvela) 800 mg PO TIDCC [facility] Last Admin: 10/10/17 08:05 Dose: Not Given Vitamin B Complex/Vit C/Folic Acid (Nephro-Robyn) 1 tab PO 0800 [facility] Last Admin: 10/10/17 08:05 Dose: Not Given - Labs Labs: 10/09/17 06:34 10/09/17 06:34 PT 12.9 SECONDS (9.7-12.2) H 10/09/17 06:34 INR 1.2 10/09/17 06:34 APTT 20 SECONDS (21-34) L 10/09/17 06:34 - Constitutional Appears: Non-toxic, Chronically Ill - Head Exam Head Exam: NORMOCEPHALIC - Eye Exam Eye Exam: PERRL - ENT Exam ENT Exam: Mucous Membranes Dry, Normal External Ear Exam - Neck Exam Neck Exam: absent: Lymphadenopathy - Respiratory Exam Respiratory Exam: Decreased Breath Sounds - Cardiovascular Exam Cardiovascular Exam: REGULAR RHYTHM - GI/Abdominal Exam GI & Abdominal Exam: Distended, Soft Assessment and Plan (1) Pneumonia Status: Acute (2) AV fistula occlusion Status: Acute (3) Anemia Status: Acute (4) Sepsis Status: Acute
[2017-10-10 12:01] LABS: ALBUMIN 3.5 g/dL (3.5-5.0); CALCIUM 8.1 mg/dl (8.6-10.4)
--- NOTE | 2017-10-10 12:11 | CP.PCM.PN ---
Subjective - Date & Time of Evaluation Date of Evaluation: 10/09/17 Time of Evaluation: 17:00 Objective - Vital Signs/Intake and Output Vital Signs (last 24 hours): Temp Pulse Resp BP Pulse Ox 97.5 F L 61 20 143/73 97 10/10/17 07:15 10/10/17 07:15 10/10/17 07:15 10/10/17 07:15 10/10/17 07:15 Intake and Output: 10/10/17 10/10/17 06:59 18:59 Intake Total 100 Output Total 200 Balance -100 - Medications Medications: Current Medications Amiodarone HCl (Cordarone) 200 mg PO DAILY [facility] Last Admin: 10/10/17 10:42 Dose: 200 mg Aspirin (Ecotrin) 81 mg PO DAILY [facility] Last Admin: 10/10/17 10:41 Dose: 81 mg Diltiazem HCl (Cardizem) 30 mg PO QID [facility] Last Admin: 10/10/17 10:42 Dose: 30 mg Ergocalciferol (Drisdol 50,000 Intl Units Cap) 1 cap PO Q7D [facility] Last Admin: 10/05/17 19:30 Dose: 1 cap Heparin Sodium (Porcine) (Heparin) 5,000 units SC Q12 [facility] Last Admin: 10/10/17 10:43 Dose: Not Given Nafcillin Sodium 2 gm/ Sodium (Chloride) 250 mls @ 250 mls/hr IVPB Q6H [facility] PRN Reason: Protocol Last Admin: 10/10/17 10:41 Dose: 250 mls/hr Rosuvastatin Calcium (Crestor) 10 mg PO HS [facility] Sevelamer Carbonate (Renvela) 800 mg PO TIDCC [facility] Last Admin: 10/10/17 08:05 Dose: Not Given Vitamin B Complex/Vit C/Folic Acid (Nephro-Robyn) 1 tab PO 0800 [facility] Last Admin: 10/10/17 08:05 Dose: Not Given - Labs Labs: 10/10/17 11:16 10/10/17 11:16 PT 12.9 SECONDS (9.7-12.2) H 10/09/17 06:34 INR 1.2 10/09/17 06:34 APTT 20 SECONDS (21-34) L 10/09/17 06:34 Assessment and Plan (1) Pneumonia Status: Acute (2) ESRD on dialysis Status: Chronic (3) A-fib Status: Acute (4) Gram-neg septicemia Status: Acute
--- NOTE | 2017-10-10 15:15 | CP.PCM.PN ---
Subjective - Date & Time of Evaluation Date of Evaluation: 10/10/17 Time of Evaluation: 14:00 - Subjective Subjective: PT SEEN EARLIER TODAY AFTER CARDIAC CATH. PT TOLERATED WELL AND STATES HE FEELS "FINE; BETTER." BEDREST UNTIL [address] JOHN, CATH LOOKS FINE SO FAR; LUKE WAS NEG; CLEARED FROM CARDIAC STANDPOINT AND PT TO CONTINUE ASA, STATIN AT HOME, STARTED ON CARDIZEM. DISCUSSED THIS WITH DR. PEREYRA AND WILL NEED TO CONTINUE IV ABX OUTPATIENT FOR 2 WEEKS. UNABLE TO INSERT PICC LINE 2/2 LEFT ARM AVF AND RIGHT ARM SWELLING X4 DAYS (PER PT HE HAD NO TESTS DONE FOR THIS ARM SWELLING). PER DR. PEREYRA PT TO CONTINUE ANCEF 2GM IV Q HD DAYS X2 WEEKS (RX GIVEN TO SHIRLENE RAIN AND SHE WILL MAKE ARRANGEMENTS WITH PT'S HD). LIKELY DC HOME TOMORROW, PT AND STEPSON AWARE AND IN AGREEMENT. PENDING VENOUS DOPPLER RUE. DR. LINDSEY CALLED AND AWARE OF THE ABOVE. Objective - Vital Signs/Intake and Output Vital Signs (last 24 hours): Temp Pulse Resp BP Pulse Ox 98.0 F 61 20 160/65 H 95 10/10/17 10:40 10/10/17 12:00 10/10/17 10:40 10/10/17 10:40 10/10/17 10:40 Intake and Output: 10/10/17 10/10/17 06:59 18:59 Intake Total 100 Output Total 200 Balance -100 - Medications Medications: Current Medications Amiodarone HCl (Cordarone) 200 mg PO DAILY [facility] Last Admin: 10/10/17 10:42 Dose: 200 mg Aspirin (Ecotrin) 81 mg PO DAILY [facility] Last Admin: 10/10/17 10:41 Dose: 81 mg Diltiazem HCl (Cardizem) 30 mg PO QID [facility] Last Admin: 10/10/17 14:45 Dose: Not Given Ergocalciferol (Drisdol 50,000 Intl Units Cap) 1 cap PO Q7D [facility] Last Admin: 10/05/17 19:30 Dose: 1 cap Heparin Sodium (Porcine) (Heparin) 5,000 units SC Q12 [facility] Last Admin: 10/10/17 10:43 Dose: Not Given Nafcillin Sodium 2 gm/ Sodium (Chloride) 250 mls @ 250 mls/hr IVPB Q6H [facility] PRN Reason: Protocol Last Admin: 10/10/17 10:41 Dose: 250 mls/hr Rosuvastatin Calcium (Crestor) 10 mg PO HS [facility] Sevelamer Carbonate (Renvela) 800 mg PO TIDCC [facility] Last Admin: 10/10/17 12:48 Dose: 800 mg Vitamin B Complex/Vit C/Folic Acid (Nephro-Robyn) 1 tab PO 0800 [facility] Last Admin: 10/10/17 08:05 Dose: Not Given - Labs Labs: 10/10/17 11:16 10/10/17 11:16 PT 12.9 SECONDS (9.7-12.2) H 10/09/17 06:34 INR 1.2 10/09/17 06:34 APTT 20 SECONDS (21-34) L 10/09/17 06:34
--- NOTE | 2017-10-10 16:48 | CP.PCM.PN ---
Subjective - Date & Time of Evaluation Date of Evaluation: 10/10/17 Time of Evaluation: 16:47 - Subjective Subjective: Nephrology Consultation Note: Assessment: stable MSSAR Sepsis likely due to permacath infection Pneumonia, Chest pain, thrombocytopenia Hypertensive Chronic Kidney Disease (I12.0) End stage renal disease (N18.6) dependence on hemodialysis (Z99.2) (TTS) via AVG Anemia (D64.9), Hyperphosphatemia (E83.39), Secondary Hyperparathyroidism (E21.1 ), HTN (I12.0) Ex-smoker CHF, A. fib, history of DVT status post IVC filter, COPD, Mediastinal adenopathy Plan: Will plan for dialysis today As per usual TTS schedule. Continue with Nephrovite 1 tab/day. PRBC as needed for anemia. Not on LACIE as, last Hb 11.7 Continue with phos binders home dose BP control with meds as ordered. Patient not on RAAS cecelia as BP low side Glycemic control, Dialysis consistent diet Further work up/management as per primary team Dose meds/antibiotics for ESRD status. Avoid fleets enema/magnesium based laxatives. LUKE done and neg for endocarditis Thanks for allowing me to participate in care of your patient. Will follow patient with you. Please call if any Qs Dr Dilip Ernandez Office: [phone] Chief Complaint; none now HPI: Pt is a 67 M with hx of ESRD on hemodialysis (TTS) via AVG @ [facility] st, last dialysis yesterday, chronic anemia, hyperphosphatemia, secondary hyperparathyroidism, hypertension, Ex-smoker CHF, A. fib, history of DVT status post IVC filter, COPD, Mediastinal adenopathy presented with complaints of Chest pain. Patient was found to have pneumonia and being treated with antibiotics. Also with low platelet counts. Renal consult for ESRD management ROS: Cardiovascular: no chest pain. Pulmonary: No shortness of breath Gastrointestinal: denies abdominal pain No nausea. No vomiting. Genitourinary: No pain while urinating. Denies blood in urine. All other negative except as mentioned in HPI Physical Examination: General Appearance: Comfortable, in no acute respiratory distress, co-operative . Vitals reviewed and noted as below Head; Atraumatic, normocephalic ENT: no ulcers no thrush. Tongue is midline. Oropharynx: no rash or ulcers. EYES: Pupils are equal, round and reactive to light accommodation. Eye muscles and extraocular movement intact. Sclera is anicteric. Neck; supple no lymphadenopathy, no thyromegaly or bruit Lungs: Normal respiratory rate/effort. Breath sounds bilateral Decreased at bases with basilar crackles Heart: Normal rate. s1s2 normal. No rub or gallop. Extremities: no edema. No varicose veins Neurological: Patient is alert, awake and oriented to person, place and time. No focal deficit. Strength bilateral appropriate and equal Skin: Warm and dry. Normal turgor. No rash. Palpitation: Normal elasticity for age Abdomen: Abdomen is soft. Bowel sounds +. There is no abdominal tenderness, no guarding/rigidity or organomegaly Psych: normal insight and normal affect/mood MSK: no joint tenderness or swelling. Digits and nails normal, no deformity : kidney or bladder not palpable Access: Left arm AV graft with thrill and bruit. Labs/imaging reviewed. Past medical history, past surgical history, family history, social history, allergy reviewed and noted as below Family Hx: no hx of CKD. Non contributory Objective - Vital Signs/Intake and Output Vital Signs (last 24 hours): Temp Pulse Resp BP Pulse Ox 97.7 F 65 22 128/67 100 10/10/17 14:45 10/10/17 14:45 10/10/17 14:45 10/10/17 15:45 10/10/17 14:45 Intake and Output: 10/10/17 10/10/17 06:59 18:59 Intake Total 100 750 Output Total 200 200 Balance -100 550 - Medications Medications: Current Medications Amiodarone HCl (Cordarone) 200 mg PO DAILY [facility] Last Admin: 10/10/17 10:42 Dose: 200 mg Aspirin (Ecotrin) 81 mg PO DAILY [facility] Last Admin: 10/10/17 10:41 Dose: 81 mg Diltiazem HCl (Cardizem) 30 mg PO QID [facility] Last Admin: 10/10/17 14:45 Dose: Not Given Ergocalciferol (Drisdol 50,000 Intl Units Cap) 1 cap PO Q7D [facility] Last Admin: 10/05/17 19:30 Dose: 1 cap Heparin Sodium (Porcine) (Heparin) 5,000 units SC Q12 [facility] Last Admin: 10/10/17 10:43 Dose: Not Given Nafcillin Sodium 2 gm/ Sodium (Chloride) 250 mls @ 250 mls/hr IVPB Q6H [facility] PRN Reason: Protocol Last Admin: 10/10/17 10:41 Dose: 250 mls/hr Rosuvastatin Calcium (Crestor) 10 mg PO HS [facility] Sevelamer Carbonate (Renvela) 800 mg PO TIDCC [facility] Last Admin: 10/10/17 12:48 Dose: 800 mg Vitamin B Complex/Vit C/Folic Acid (Nephro-Robyn) 1 tab PO 0800 [facility] Last Admin: 10/10/17 08:05 Dose: Not Given - Labs Labs: 10/10/17 11:16 10/10/17 11:16 PT 12.9 SECONDS (9.7-12.2) H 10/09/17 06:34 INR 1.2 10/09/17 06:34 APTT 20 SECONDS (21-34) L 10/09/17 06:34
[2017-10-10 18:24] VITALS: RESP 20
[2017-10-10] MEDS ORDERED: Dextrose 50% SYRINGE Inj (50 ml) IV STA (18:40)
--- NOTE | 2017-10-10 19:00 | CARDCATH ---
PROCEDURE DATE: 10/10/2017 PROCEDURES: 1. Left heart catheterization. 2. Coronary angiogram. 3. Radiological interpretation and radiological supervision of the cardiac catheterization. CLINICAL INDICATIONS: 1. Elevated troponin. 2. Chest pain. 3. Paroxysmal AFib. 4. Hypertension. 5. History of coronary artery disease, status post stent placement. 6. Chronic renal failure, on hemodialysis. REFERRING PHYSICIAN: Preston Toth MD PERFORMING PHYSICIAN: Theo Anderson MD DESCRIPTION OF PROCEDURE: After informed consent, the patient was prepped and draped in the usual sterile fashion. Lidocaine 2% was given in the left groin for local anesthesia. Using micropuncture technique, 6-Indonesian sheath was introduced into left common femoral artery. A JL4 6-Indonesian diagnostic catheter engaged into left main coronary artery. Contrast injected and left coronary angiogram was done. Then, JR4 diagnostic catheter crossed into the left ventricle across the aortic valve. LV end-diastolic pressure was measured. Contrast injected and the LV angiogram was done. The catheter was pulled back across the aortic valve. Gradient across the aortic valve was measured. Using the same catheter, right coronary artery was engaged. Contrast injected and right coronary angiogram was performed. The patient tolerated the procedure well. FINDINGS: 1. Left main coronary artery is patent. 2. LAD and diagonal branches are patent. 3. Prior stent in the left circumflex coronary artery is patent. Obtuse marginal branches are patent. 4. Right coronary artery is dominant and patent. 5. Mid right coronary artery has a nonobstructive 20% stenosis. 6. LV ejection fraction approximately 75%. 7. Left ventricular hypertrophy noted. 8. No gradient across the aortic valve. 9. LVEDP is 25. IMPRESSION: 1. Nonobstructive coronaries. 2. Normal left ventricular systolic function. Recommend medical management. Theo Anderson MD
--- NOTE | 2017-10-10 23:14 | CP.PCM.PN ---
Subjective - Date & Time of Evaluation Date of Evaluation: 10/10/17 Time of Evaluation: 18:35 - Subjective Subjective: Pt seen and evalauted at bedside, MSSAR Sepsis likely due to permacath infection for dialysis today As per usual TTS schedule LUKE done and neg for endocarditis Objective - Vital Signs/Intake and Output Vital Signs (last 24 hours): Temp Pulse Resp BP Pulse Ox 98.1 F 75 20 169/70 H 96 10/10/17 19:31 10/10/17 19:31 10/10/17 19:31 10/10/17 19:31 10/10/17 19:31 Intake and Output: 10/10/17 10/11/17 18:59 06:59 Intake Total 750 Output Total 200 Balance 550 - Medications Medications: Current Medications Amiodarone HCl (Cordarone) 200 mg PO DAILY [facility] Last Admin: 10/10/17 10:42 Dose: 200 mg Aspirin (Ecotrin) 81 mg PO DAILY [facility] Last Admin: 10/10/17 10:41 Dose: 81 mg Diltiazem HCl (Cardizem) 30 mg PO QID [facility] Last Admin: 10/10/17 22:11 Dose: 30 mg Ergocalciferol (Drisdol 50,000 Intl Units Cap) 1 cap PO Q7D [facility] Last Admin: 10/05/17 19:30 Dose: 1 cap Heparin Sodium (Porcine) (Heparin) 5,000 units SC Q12 [facility] Last Admin: 10/10/17 22:23 Dose: Not Given Nafcillin Sodium 2 gm/ Sodium (Chloride) 250 mls @ 250 mls/hr IVPB Q6H [facility] PRN Reason: Protocol Last Admin: 10/10/17 22:12 Dose: 250 mls/hr Rosuvastatin Calcium (Crestor) 10 mg PO HS [facility] Last Admin: 10/10/17 22:11 Dose: 10 mg Sevelamer Carbonate (Renvela) 800 mg PO TIDCC [facility] Last Admin: 10/10/17 19:39 Dose: 800 mg Vitamin B Complex/Vit C/Folic Acid (Nephro-Robyn) 1 tab PO 0800 [facility] Last Admin: 10/10/17 08:05 Dose: Not Given - Labs Labs: 10/10/17 11:16 10/10/17 11:16 PT 12.9 SECONDS (9.7-12.2) H 10/09/17 06:34 INR 1.2 10/09/17 06:34 APTT 20 SECONDS (21-34) L 10/09/17 06:34 - Constitutional Appears: No Acute Distress - Head Exam Head Exam: ATRAUMATIC, NORMAL INSPECTION, NORMOCEPHALIC - Eye Exam Eye Exam: EOMI, Normal appearance, PERRL Pupil Exam: NORMAL ACCOMODATION, PERRL Assessment and Plan (1) Pneumonia Status: Acute (2) ESRD on dialysis Status: Chronic (3) A-fib Status: Acute (4) Gram-neg septicemia Status: Acute
[2017-10-11] MEDS: Multivitamin Vitamin B Complex (Nephro-Vite) Tab PO SCH (08:47)
--- NOTE | 2017-10-11 10:16 | CP.PCM.PN ---
Subjective - Date & Time of Evaluation Date of Evaluation: 10/11/17 Time of Evaluation: 09:00 - Subjective Subjective: Patient reported to be feeling good No nausea no vomiting No chest pain reported Patient is going for a test Objective - Vital Signs/Intake and Output Vital Signs (last 24 hours): Temp Pulse Resp BP Pulse Ox 98.2 F 66 20 124/67 96 10/11/17 08:38 10/11/17 08:38 10/11/17 08:38 10/11/17 08:38 10/11/17 08:38 Intake and Output: 10/11/17 10/11/17 06:59 18:59 Intake Total 260 Output Total 100 Balance 160 - Medications Medications: Current Medications Amiodarone HCl (Cordarone) 200 mg PO DAILY [facility] Last Admin: 10/10/17 10:42 Dose: 200 mg Aspirin (Ecotrin) 81 mg PO DAILY [facility] Last Admin: 10/10/17 10:41 Dose: 81 mg Diltiazem HCl (Cardizem) 30 mg PO QID [facility] Last Admin: 10/10/17 22:11 Dose: 30 mg Ergocalciferol (Drisdol 50,000 Intl Units Cap) 1 cap PO Q7D [facility] Last Admin: 10/05/17 19:30 Dose: 1 cap Heparin Sodium (Porcine) (Heparin) 5,000 units SC Q12 [facility] Last Admin: 10/10/17 22:23 Dose: Not Given Nafcillin Sodium 2 gm/ Sodium (Chloride) 250 mls @ 250 mls/hr IVPB Q6H [facility] PRN Reason: Protocol Last Admin: 10/11/17 04:14 Dose: 250 mls/hr Rosuvastatin Calcium (Crestor) 10 mg PO HS [facility] Last Admin: 10/10/17 22:11 Dose: 10 mg Sevelamer Carbonate (Renvela) 800 mg PO TIDCC [facility] Last Admin: 10/11/17 08:47 Dose: 800 mg Vitamin B Complex/Vit C/Folic Acid (Nephro-Robyn) 1 tab PO 0800 [facility] Last Admin: 10/11/17 08:47 Dose: 1 tab - Labs Labs: 10/10/17 11:16 10/10/17 11:16 PT 12.9 SECONDS (9.7-12.2) H 10/09/17 06:34 INR 1.2 10/09/17 06:34 APTT 20 SECONDS (21-34) L 10/09/17 06:34 - Constitutional Appears: No Acute Distress - ENT Exam ENT Exam: Mucous Membranes Moist - Neck Exam Neck Exam: absent: Lymphadenopathy - Respiratory Exam Respiratory Exam: NORMAL BREATHING PATTERN. absent: Chest Wall Tenderness - Cardiovascular Exam Cardiovascular Exam: absent: JVD, Rubs - Extremities Exam Extremities Exam: absent: Calf Tenderness - Back Exam Back Exam: absent: CVA tenderness (L), CVA tenderness (R) - Neurological Exam Neurological Exam: Alert - Psychiatric Exam Psychiatric exam: Normal Affect - Skin Skin Exam: absent: Cyanosis Assessment and Plan - Assessment and Plan (Free Text) Assessment: (Aand P MSSAR Sepsis likely due to permacath infection Pneumonia, Chest pain, thrombocytopenia Hypertensive Chronic Kidney Disease (I12.0) End stage renal disease (N18.6) dependence on hemodialysis (Z99.2) (TTS) via AVG Anemia (D64.9), Hyperphosphatemia (E83.39), Secondary Hyperparathyroidism (E21.1 ), HTN (I12.0) Ex-smoker CHF, A. fib, history of DVT status post IVC filter, COPD, Mediastinal adenopathy Plan: Completed dialysis yesterday As per usual TTS schedule. Continue with Nephrovite 1 tab/day. PRBC as needed for anemia. Not on LACIE as, last Hb 12.6,Hold EPO Continue with phos binders home dose BP control with meds as ordered. Patient not on RAAS cecelia as BP low side Glycemic control, Dialysis consistent diet Further work up/management as per primary team Dose meds/antibiotics for ESRD status. Avoid fleets enema/magnesium based laxatives. LUKE done and neg for endocarditis Patient is going for a nuclear test.
--- NOTE | 2017-10-11 11:49 | VASCLAB ---
PROCEDURE: Right Upper Extremity Venous Duplex Exam HISTORY: RUE swelling x4 days; r/o dvt PRIORS: None. TECHNIQUE: Right upper extremity, internal jugular, subclavian, axillary, brachial, ulnar, radial, basilic and upper cephalic veins were evaluated. Flow was assessed with color Doppler, compressibility, assessment of phasic flow and augmentation response. Report prepared by MELINA Luke, RVT FINDINGS: RIGHT: 1. Internal Jugular: 1.1. Compressibility - Fully compressible: Thrombus - None : Flow - Phasic: Augmentation -Normal: Reflux - None. 2. Subclavian: 2.1. Compressibility - Fully compressible: Thrombus - None : Flow - Phasic: Augmentation -Normal: Reflux - None. 3. Axillary: 3.1. Compressibility - Fully compressible: Thrombus - None : Flow - Phasic: Augmentation -Normal: Reflux - None. 4. Brachial: 4.1. Compressibility - Fully compressible: Thrombus - None: Flow - Phasic: Augmentation -Normal: Reflux - None. 5. Ulnar: 5.1. Compressibility - Fully compressible: Thrombus - None: Flow - Phasic: Augmentation -Normal: Reflux - None. 6. Radial: 6.1. Compressibility - Fully compressible: Thrombus - None: Flow - Phasic: Augmentation - Normal: Reflux - None. 7. Cephalic: 7.1. Compressibility - Fully compressible: Thrombus - None: Flow - Phasic: Augmentation -Normal: Reflux - None. 8. Basilic: 8.1. Compressibility - Fully compressible: Thrombus - None: Flow - Phasic: Augmentation -Normal: Reflux - None. OTHER FINDINGS: Right: None. IMPRESSION: Right: No evidence of vein thrombosis of the right upper extremity with excellent venous flow. Normal valve function noted of the right side. Normal venous flow noted in the left internal jugular and left subclavian veins.
--- NOTE | 2017-10-11 14:29 | CP.PCM.PN ---
Subjective - Date & Time of Evaluation Date of Evaluation: 10/11/17 Time of Evaluation: 11:30 - Subjective Subjective: patient seen today, denies any chest pain, sob, fever, chills, abdominal pain, N /V/D a febrile No overnight events noted on monitor s/p cardiac cath - Non Obstructive coronaries, Normal EF, LVH Objective - Vital Signs/Intake and Output Vital Signs (last 24 hours): Temp Pulse Resp BP Pulse Ox 98.2 F 66 20 124/67 96 10/11/17 08:38 10/11/17 12:35 10/11/17 08:38 10/11/17 08:38 10/11/17 12:35 Intake and Output: 10/11/17 10/11/17 06:59 18:59 Intake Total 260 Output Total 100 Balance 160 - Medications Medications: Current Medications Amiodarone HCl (Cordarone) 200 mg PO DAILY [facility] Last Admin: 10/11/17 10:58 Dose: 200 mg Aspirin (Ecotrin) 81 mg PO DAILY [facility] Last Admin: 10/11/17 10:58 Dose: 81 mg Diltiazem HCl (Cardizem) 30 mg PO QID [facility] Last Admin: 10/11/17 10:59 Dose: 30 mg Ergocalciferol (Drisdol 50,000 Intl Units Cap) 1 cap PO Q7D [facility] Last Admin: 10/05/17 19:30 Dose: 1 cap Heparin Sodium (Porcine) (Heparin) 5,000 units SC Q12 [facility] Last Admin: 10/11/17 10:59 Dose: 5,000 units Nafcillin Sodium 2 gm/ Sodium (Chloride) 250 mls @ 250 mls/hr IVPB Q6H [facility] PRN Reason: Protocol Last Admin: 10/11/17 12:42 Dose: Not Given Rosuvastatin Calcium (Crestor) 10 mg PO HS [facility] Last Admin: 10/10/17 22:11 Dose: 10 mg Sevelamer Carbonate (Renvela) 800 mg PO TIDCC [facility] Last Admin: 10/11/17 12:37 Dose: 800 mg Vitamin B Complex/Vit C/Folic Acid (Nephro-Robyn) 1 tab PO 0800 [facility] Last Admin: 10/11/17 08:47 Dose: 1 tab - Labs Labs: 10/10/17 11:16 10/10/17 11:16 PT 12.9 SECONDS (9.7-12.2) H 10/09/17 06:34 INR 1.2 10/09/17 06:34 APTT 20 SECONDS (21-34) L 10/09/17 06:34 - Constitutional Appears: Well, No Acute Distress - Respiratory Exam Respiratory Exam: Clear to Ausculation Bilateral, NORMAL BREATHING PATTERN - Cardiovascular Exam Cardiovascular Exam: REGULAR RHYTHM, +S1, +S2 - Neurological Exam Neurological Exam: Alert, Awake, Oriented x3 Assessment and Plan - Assessment and Plan (Free Text) Assessment: A/P 67 year old male with past medical history of ESRD on HD (TTS) ADMITTED for cough and pleuritic chest pain x 3 days. Found to have gram positive bacteremia. REPEAT BLOOD CULTURE - NEGATIVE LUKE- negative s/p cardiac cath - normal coronaries Dr. Anderson cardiology on consult recommends to continue amiodorone , cardizem and statin Dr. Amado on consult , recommends to continue IV ancef with HD T,TH,SAT X 2 weeks as per SW/CM antibiotics arranged at HD center and will be started tomorrow with HD D/W Dr. Toth, stable for discharge home today and f/u with Dr. Toth office next week Discharge plan discussed with patient and son at bedside , who understands and agrees with plan Patient instructed to returns to ED if symptoms returns
[2017-10-11 16:27] VITALS: BP 142/72; PULSE 75; TEMP 98; O2SAT 97
--- NOTE | 2017-10-11 23:09 | CP.PCM.DIS ---
Provider - Provider Date of Admission: 10/04/17 07:53 Attending physician: Preston Toth MD Time Spent in preparation of Discharge (in minutes): 45 Diagnosis - Discharge Diagnosis (1) Pneumonia Status: Acute (2) ESRD on dialysis Status: Chronic (3) A-fib Status: Acute (4) Gram-neg septicemia Status: Acute Hospital Course - Lab Results Lab Results: Micro Results 10/07/17 20:30 Blood-Venous Blood Culture - Preliminary NO GROWTH AFTER 4 DAYS 10/07/17 20:00 Blood-Venous Blood Culture - Preliminary NO GROWTH AFTER 4 DAYS 10/09/17 17:21 Nose MRSA Culture - Final MRSA NOT DETECTED 10/04/17 04:00 Blood Blood Culture - Final Staphylococcus Aureus 10/04/17 04:00 Blood Gram Stain - Final 10/04/17 04:30 Blood S.aureus & Coag-Neg Staph PNA FISH - Final 10/04/17 04:30 Blood Blood Culture - Final Staphylococcus Aureus 10/04/17 04:30 Blood Gram Stain - Final 10/05/17 Unknown Nose MRSA Culture (Admit) - Final MRSA NOT DETECTED Most Recent Lab Values WBC 6.6 K/uL (4.8-10.8) 10/10/17 11:16 RBC 4.29 Mil/uL (4.40-5.90) L 10/10/17 11:16 Hgb 12.6 g/dL (12.0-18.0) 10/10/17 11:16 Hct 37.8 % (35.0-51.0) 10/10/17 11:16 MCV 88.1 fL (80.0-94.0) 10/10/17 11:16 MCH 29.5 pg (27.0-31.0) 10/10/17 11:16 MCHC 33.4 g/dL (33.0-37.0) 10/10/17 11:16 RDW 16.0 % (11.5-14.5) H 10/10/17 11:16 Plt Count 201 K/uL (130-400) 10/10/17 11:16 MPV 8.4 fL (7.2-11.7) 10/10/17 11:16 Neut % (Auto) 51.2 % (50.0-75.0) 10/10/17 11:16 Lymph % (Auto) 16.7 % (20.0-40.0) L 10/10/17 11:16 [place] % (Auto) 11.8 % (0.0-10.0) H 10/10/17 11:16 Eos % (Auto) 19.7 % (0.0-4.0) H 10/10/17 11:16 Baso % (Auto) 0.6 % (0.0-2.0) 10/10/17 11:16 Neut # (Auto) 3.4 K/uL (1.8-7.0) 10/10/17 11:16 Lymph # (Auto) 1.1 K/uL (1.0-4.3) 10/10/17 11:16 [place] # (Auto) 0.8 K/uL (0.0-0.8) 10/10/17 11:16 Eos # (Auto) 1.3 K/uL (0.0-0.7) H 10/10/17 11:16 Baso # (Auto) 0.0 K/uL (0.0-0.2) 10/10/17 11:16 Neutrophils % (Manual) 59 % (50-75) 10/06/17 06:34 Band Neutrophils % 9 % (0-2) H 10/06/17 06:34 Lymphocytes % (Manual) 7 % (20-40) L 10/06/17 06:34 Monocytes % (Manual) 7 % (0-10) 10/06/17 06:34 Eosinophils % (Manual) 18 % (0-4) H 10/06/17 06:34 Basophils % (Manual) 1 % (0-2) 10/05/17 10:11 Platelet Estimate Decreased (NORMAL) L 10/06/17 06:34 Anisocytosis (manual) Slight 10/06/17 06:34 Ovalocytes Slight 10/06/17 06:34 PT 12.9 SECONDS (9.7-12.2) H 10/09/17 06:34 INR 1.2 10/09/17 06:34 APTT 20 SECONDS (21-34) L 10/09/17 06:34 Hep-Gwen Thrombocytopen Negative (Negative) 10/04/17 10:47 Sodium 140 mmol/L (132-148) 10/10/17 11:16 Potassium 4.6 mmol/L (3.6-5.2) 10/10/17 11:16 Chloride 104 mmol/L (98-107) 10/10/17 11:16 Carbon Dioxide 20 mmol/L (22-30) L 10/10/17 11:16 Anion Gap 20 (10-20) 10/10/17 11:16 BUN 43 mg/dL (9-20) H 10/10/17 11:16 Creatinine 4.8 mg/dL (0.8-1.5) H 10/10/17 11:16 Est GFR ( Amer) 15 10/10/17 11:16 Est GFR (Non-Af Amer) 12 10/10/17 11:16 POC Glucose (mg/dL) 93 mg/dL (65-110) 10/11/17 11:43 Random Glucose 61 mg/dL (75-110) L 10/10/17 11:16 Hemoglobin A1c 5.4 % (4.2-6.5) 10/06/17 22:45 Lactic Acid 1.7 mmol/L (0.7-2.1) 10/04/17 04:15 Calcium 8.1 mg/dl (8.6-10.4) L 10/10/17 11:16 Phosphorus 3.7 mg/dL (2.5-4.5) 10/10/17 11:16 Magnesium 2.0 mg/dL (1.6-2.3) 10/10/17 11:16 Total Bilirubin 0.9 mg/dL (0.2-1.3) 10/10/17 11:16 AST 33 U/L (17-59) 10/10/17 11:16 ALT 11 U/L (21-72) L D 10/10/17 11:16 Alkaline Phosphatase 73 U/L (38-126) 10/10/17 11:16 Total Creatine Kinase 74 U/L (55-170) 10/07/17 20:56 CK-MB (Mass) 1.91 ng/mL (0.0-3.38) 10/07/17 20:56 Troponin I 0.0480 ng/mL (0.00-0.120) 10/07/17 20:56 Total Protein 7.1 g/dL (6.3-8.3) 10/10/17 11:16 Albumin 3.5 g/dL (3.5-5.0) 10/10/17 11:16 Globulin 3.5 gm/dL (2.2-3.9) 10/10/17 11:16 Albumin/Globulin Ratio 1.0 (1.0-2.1) 10/10/17 11:16 UF Heparin Interp Negative (Negative) 10/04/17 10:47 Procalcitonin 52.44 NG/ML (0.19-0.49) H 10/05/17 11:23 Random Vancomycin 11.92 ug/mL 10/06/17 06:34 [facility] Low Dose 0.1 6 % Release 10/04/17 10:47 [facility] Low Dose 0.5 2 % Release 10/04/17 10:47 [facility] High Dose 100 0 % Release 10/04/17 10:47 Influenza Typ A,B (EIA) Negative for flu a/b (NEGATIVE) 10/04/17 04:24 - Hospital Course Hospital Course: A/P 67 year old male with past medical history of ESRD on HD (TTS) ADMITTED for cough and pleuritic chest pain x 3 days. Found to have gram positive bacteremia. REPEAT BLOOD CULTURE - NEGATIVE LUKE- negative s/p cardiac cath - normal coronaries Dr. Anderson cardiology on consult recommends to continue amiodorone , cardizem and statin Dr. Amado on consult , recommends to continue IV ancef with HD T,TH,SAT X 2 weeks as per SW/CM antibiotics arranged at HD center and will be started tomorrow with HD Pt is stable for discharge home today and f/u with me in office next week Discharge plan discussed with patient and son at bedside , who understands and agrees with plan Patient instructed to returns to ED if symptoms returns Discharge Exam - Head Exam Head Exam: ATRAUMATIC, NORMAL INSPECTION, NORMOCEPHALIC Discharge Plan - Discharge Medications Prescriptions: ceFAZolin IV 2 gm in Dextrose [Ancef IV 2 gm DUPLEX] 2 gm IV TTS #7 bag diltiaZEM [Cardizem] 30 mg PO QID #120 tab Amiodarone [Cordarone] 200 mg PO DAILY #30 tab Rosuvastatin Calcium [Crestor] 10 mg PO HS #30 tab Aspirin [Ecotrin] 81 mg PO DAILY #30 tabec Vitamin B Complex/Vit C/Folic [Nephro-Robyn] 1 tab PO 0800 #30 tab - Follow Up Plan Condition: GUARDED Disposition: HOME/ ROUTINE Instructions: Dialysis Diet , Heart Failure, Adult (DC), Cardiac Catheterization (DC), Hemodialysis (DC), Pneumonia, Adult (DC), Amiodarone, Aspirin, Diltiazem, Rosuvastatin, End Stage Kidney Disease (DC) Additional Instructions: Please continue HD SCHEDULED , T. TH, SAT YOU WILL RECEIVE ANTIBIOTICS WITH HD AT HD CENTER ,T,TH,SAT - ALL SET IT UP ALREADY PLEASE FOLLOW UP WITH DR. TOTH OFFICE NEXT WEEK - [address] [place] [address] [address] FOLLOW UP WITH DR. ANDERSON OFFICE IN 2 WEEK- CALL AND MAKE Referrals: Theo Anderson MD [Staff Provider] - Preston Toth MD [Staff Provider] - 10/18/17 1:30 pm (appointment made for you , spoke with Lillian from the office)
--- NOTE | 2017-10-11 23:38 | CP.PCM.PN ---
Subjective - Date & Time of Evaluation Date of Evaluation: 10/11/17 Time of Evaluation: 09:10 - Subjective Subjective: Patient seen and evaluated Denies chest pain and dyspnea Objective - Vital Signs/Intake and Output Vital Signs (last 24 hours): Temp Pulse Resp BP Pulse Ox 98.0 F 75 20 142/72 97 10/11/17 15:24 10/11/17 15:24 10/11/17 15:24 10/11/17 15:24 10/11/17 15:24 - Labs Labs: 10/10/17 11:16 10/10/17 11:16 PT 12.9 SECONDS (9.7-12.2) H 10/09/17 06:34 INR 1.2 10/09/17 06:34 APTT 20 SECONDS (21-34) L 10/09/17 06:34
--- NOTE | 2017-10-12 23:03 | CARD ---
APPROVED REPORT EXAM: Two-dimensional and M-mode echocardiogram with Doppler and color Doppler. INDICATION Infection : Rule out subacute bacterial endocarditis Reason For Test : Rule out endocarditis. PROCEDURE After obtaining informed consent, patient underwent transesophageal echo in the ICU/CCU. Type of Sedation : Conscious Sedation Sedation was provided by anesthesiologist. Sedation was achieved with intravenously. The LUKE was performed complications. Throughout the procedure, the blood pressure, pulse oximetry, cardiac rhythm, and rate were monitored. The patient tolerated the procedure without adverse effects. Recovery from conscious sedation was uneventful and vital signs were stable. LEFT VENTRICLE The left ventricle is normal size. There is moderate concentric left ventricular hypertrophy. The left ventricular function is normal. The left ventricular ejection fraction is within the normal range. There is normal LV segmental wall motion. No left ventricle thrombus noted on this study. There is no ventricular septal defect visualized. RIGHT VENTRICLE The right ventricle is normal size. The right ventricular systolic function is normal. ATRIA The left atrium is moderately dilated. The right atrium is moderately dilated. The interatrial septum is intact with no evidence for an atrial septal defect. AORTIC VALVE The aortic valve is normal in structure. No aortic regurgitation is present. There is no aortic valvular stenosis. MITRAL VALVE The mitral valve is normal in structure. There is no evidence of mitral valve prolapse. There is no mitral valve stenosis. Mitral regurgitation is mild. TRICUSPID VALVE The tricuspid valve is normal in structure. There is mild tricuspid regurgitation. There is no tricuspid valve prolapse or vegetation. There is no tricuspid valve stenosis. PULMONIC VALVE The pulmonary valve is normal in structure. There is no pulmonic valvular regurgitation. There is no pulmonic valvular stenosis. GREAT VESSELS The aortic root is normal in size. <Conclusion> The left ventricular function is normal. The left ventricular ejection fraction is within the normal range. The right ventricle is normal size. The left atrium is moderately dilated. The right atrium is moderately dilated. Mitral regurgitation is mild. There is mild tricuspid regurgitation. No evidence of Endocarditis
== END 2017-10-11 16:11 | disposition home or self-care (01) | DRG 286 ==
LOC: C.ER 03:22 → C.3T 07:53 → C.6T 11:07 → C.9I 10-05 10:38 → C.5S 10-09 18:08 → C.6T 10-10 14:00
PROVIDERS: ADMIT Internal Medicine; ATTEND Internal Medicine
PROC: 5A1D70Z Performance of Urinary Filtration, Intermittent, Less than 6 Hours Per Day (ICD-10-PCS; 2017-10-05)
PROC: B2111ZZ Fluoroscopy of Multiple Coronary Arteries using Low Osmolar Contrast (ICD-10-PCS; 2017-10-10)
PROC: 5A1D70Z Performance of Urinary Filtration, Intermittent, Less than 6 Hours Per Day (ICD-10-PCS; 2017-10-10)
PROC: 4A023N7 Measurement of Cardiac Sampling and Pressure, Left Heart, Percutaneous Approach (ICD-10-PCS; principal; 2017-10-10 08:00)
DX: T82.868A Thrombosis due to vascular prosthetic devices, implants and grafts, initial encounter (principal); A41.01 Sepsis due to Methicillin susceptible Staphylococcus aureus; J18.9 Pneumonia, unspecified organism; N18.6 End stage renal disease; I13.2 Hypertensive heart and chronic kidney disease with heart failure and with stage 5 chronic kidney disease, or end stage renal disease; I47.1 Supraventricular tachycardia; J44.0 Chronic obstructive pulmonary disease with (acute) lower respiratory infection; N25.81 Secondary hyperparathyroidism of renal origin; D63.1 Anemia in chronic kidney disease; D69.6 Thrombocytopenia, unspecified; E87.5 Hyperkalemia; I25.10 Atherosclerotic heart disease of native coronary artery without angina pectoris; I48.0 Paroxysmal atrial fibrillation; I50.9 Heart failure, unspecified; Z87.891 Personal history of nicotine dependence; Z95.5 Presence of coronary angioplasty implant and graft; Z99.2 Dependence on renal dialysis; Z86.718 Personal history of other venous thrombosis and embolism

== ENCOUNTER 2017-12-29 20:14 | Inpatient (IN) | payer MEDICARE ==
[2017-12-29 20:14] VITALS: PULSE 137; BMI 23.3
[2017-12-29] MEDS ORDERED: Piperacill/Tazo 2.25gm in Dex 2.25 GM/50 ML BAG IVPB STA (21:01)
[2017-12-29] MEDS ORDERED: Vancomycin 1 gm/NS 200 ml 1 GM/200 ML BAG IVPB STA (21:08)
[2017-12-29] MEDS ORDERED: Vancomycin 1 GM 1 GM/250 ML BAG IV SCH (21:15)
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
[2017-12-29 21:32] LABS: ALB/GLOB RATIO 1.3 (1.0-2.1); ALBUMIN 4.5 g/dL (3.5-5.0); CALCIUM 8.8 mg/dl (8.6-10.4)
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
[2017-12-29] MEDS ORDERED: Piperacillin/Tazobact 3.375 gm 100 ML IVPB ONE (21:35)
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
[2017-12-29 21:43] LABS: TROPONIN I 0.039 ng/mL (0.00-0.120)
[2017-12-29 21:58] LABS: BASO # 0.1 K/uL (0.0-0.2); BASO % 0.8 % (0.0-2.0); EOS # 1.4 K/uL (0.0-0.7); EOS % 13.8 % (0.0-4.0); LYMPH # 1.1 K/uL (1.0-4.3); LYMPH % 10.5 % (20.0-40.0); MEAN CELL VOLUME 89.3 fL (80.0-94.0); MEAN CORPUSCULAR HEMOGLOBIN 30.3 pg (27.0-31.0); MEAN CORPUSCULAR HGB CONC 33.9 g/dL (33.0-37.0); MEAN PLATELET VOLUME 8.9 fL (7.2-11.7); MONO # 1.1 K/uL (0.0-0.8); MONO % 10.6 % (0.0-10.0); NEUT # 6.6 K/uL (1.8-7.0); NEUT % 64.3 % (50.0-75.0); RBC 4.31 Mil/uL (4.40-5.90); RED CELL DISTRIBUTION WIDTH 15.7 % (11.5-14.5); WHITE BLOOD COUNT 10.2 K/uL (4.8-10.8)
[2017-12-29 22:07] LABS: INR 1.1; PROTHROMBIN TIME 11.8 SECONDS (9.7-12.2)
[2017-12-30] MEDS: Piperacill/Tazo 2.25gm in Dex 2.25 GM/50 ML BAG IVPB SCH ×4 (03:45→21:22)
[2017-12-30 06:33] LABS: BASO # 0.1 K/uL (0.0-0.2); BASO % 0.9 % (0.0-2.0); EOS # 1.4 K/uL (0.0-0.7); EOS % 15.7 % (0.0-4.0); HEMOGLOBIN 12.2 g/dL (12.0-18.0); LYMPH % 10.9 % (20.0-40.0); MEAN CELL VOLUME 88.7 fL (80.0-94.0); MEAN CORPUSCULAR HEMOGLOBIN 29.8 pg (27.0-31.0); MEAN CORPUSCULAR HGB CONC 33.6 g/dL (33.0-37.0); MEAN PLATELET VOLUME 8.6 fL (7.2-11.7); MONO # 0.9 K/uL (0.0-0.8); NEUT # 5.5 K/uL (1.8-7.0); NEUT % 62.5 % (50.0-75.0); RBC 4.08 Mil/uL (4.40-5.90); RED CELL DISTRIBUTION WIDTH 15.9 % (11.5-14.5); WHITE BLOOD COUNT 8.8 K/uL (4.8-10.8)
[2017-12-30 06:42] LABS: CALCIUM 8.3 mg/dl (8.6-10.4)
[2017-12-30] MEDS: Multivitamin Vitamin B Complex (Nephro-Vite) Tab PO SCH (08:00)
--- NOTE | 2017-12-30 08:15 | RAD ---
PROCEDURE: CHEST RADIOGRAPH, 1 VIEW HISTORY: Shortness of breath COMPARISON: 10/05/2017. FINDINGS: LUNGS: The lungs are well inflated and clear. PLEURA: No pneumothorax. Suspect small pleural effusions. CARDIOVASCULAR: This persistent moderate cardiomegaly. OSSEOUS STRUCTURES: No significant abnormalities. VISUALIZED UPPER ABDOMEN: Normal. OTHER FINDINGS: None. IMPRESSION: Moderate cardiomegaly and small pleural effusions. No active pulmonary disease.
[2017-12-30] MEDS ORDERED: Midazolam 2 MG/2 ML VIAL ONE (09:15)
[2017-12-30] MEDS ORDERED: Vancomycin 1 gm/D5W 200 ml 0 GM/0 ML BAG IVPB ONE (09:18)
[2017-12-30] MEDS ORDERED: Propofol 10 mg/ml Inj (20 ML) ONE (09:19)
[2017-12-30] MEDS ORDERED: ePHEDrine 50 mg/ml Inj ONE ×2 (09:23→09:26)
[2017-12-30] MEDS ORDERED: Rocuronium 10 mg/ml (5 ml) ONE (09:25)
[2017-12-30] MEDS ORDERED: Phenylephrine 10 mg/ml Inj ONE (09:27)
[2017-12-30] MEDS ORDERED: Oxycodone/Acetaminophen 5/325 mg Tab PO PRN (10:55)
--- NOTE | 2017-12-30 10:55 | PCM.SURG1 ---
Surgeon's Initial Post Op Note - Surgeon's Notes Surgeon: Dr. Herrera Refinery Operator Reforming Unit: Dr. Salas PHY2 Type of Anesthesia: General Endo Pre-Operative Diagnosis: Infected AV shunt Operative Findings: See operative dictation Post-Operative Diagnosis: Infected AV shunt Operation Performed: Removal of AV shunt Specimen/Specimens Removed: AV shunt , wound cultures Estimated Blood Loss: EBL {In ML}: 150 Blood Products Given: N/A Drains Used: No Drains Post-Op Condition: Good Date of Surgery/Procedure: 12/30/17 Time of Surgery/Procedure: 10:54
[2017-12-30] MEDS ORDERED: HYDROmorphone 0.5 mg/0.5 ml ISec IVP PRN (10:59)
[2017-12-30] MEDS ORDERED: DiphenhydrAMINE 50 mg/ml Inj IVP STA (11:44)
[2017-12-30] MEDS ORDERED: DiphenhydrAMINE 50 mg/ml Inj ONE (11:45)
--- NOTE | 2017-12-30 15:01 | CP.PCM.CON ---
History of Present Illness - History of Present Illness History of Present Illness: Nephrology Consultation Note: Assessment: stable Infected AVG HTN Hypertensive Chronic Kidney Disease (I12.0) End stage renal disease (N18.6) dependence on hemodialysis (Z99.2) (TTS) via AVG Anemia (D64.9), Hyperphosphatemia (E83.39), Secondary Hyperparathyroidism (E21.1 ), HTN (I12.0) Ex-smoker CHF, A. fib, history of DVT status post IVC filter, COPD, Mediastinal adenopathy Plan: HD today per usual TTS schedule f/u post op note from dr. brito s/p removal of infected AVG Continue with Nephrovite 1 tab/day. no arron given hemoglobin Continue with phos binders home dose Bp stable Continue renvela, - phos ordered dose abx for ESRD Chief Complaint; none now HPI: Pt is a 67 M with hx of ESRD on hemodialysis (TTS) via AVG @ [facility], last dialysis monday, states he developed L arm swelling. He skipped HD as a result of it on . He came to ER for eval yesterday was evaluated by surgery and concern was for AVG infection. He was taken to OR this morning. He is feeling groggiy but otherwise ok. he denies any n/v. ROS: Cardiovascular: no chest pain. Pulmonary: No shortness of breath Gastrointestinal: denies abdominal pain No nausea. No vomiting. Genitourinary: No pain while urinating. Denies blood in urine. All other negative except as mentioned in HPI Physical Examination: VS as below General Appearance: Comfortable, in no acute respiratory distress, co-operative . Vitals reviewed and noted as below Head; Atraumatic, normocephalic ENT: no ulcers no thrush. Tongue is midline. Oropharynx: no rash or ulcers. EYES: Pupils are equal, round and reactive to light accommodation. Eye muscles and extraocular movement intact. Sclera is anicteric. Neck; supple no lymphadenopathy, no thyromegaly or bruit Lungs: Normal respiratory rate/effort. Breath sounds bilateral Decreased at bases with basilar crackles Heart: . s1s2 normal. No rub or gallop. Extremities: no edema. No varicose veins Neurological: Patient is alert, awake and oriented to person, place and time. No focal deficit. Strength bilateral appropriate and equal Skin: Warm and dry. Normal turgor. No rash. Palpitation: dressing L forearm Abdomen: Abdomen is soft. Bowel sounds +. There is no abdominal tenderness, no guarding/rigidity or organomegaly Psych: normal insight and normal affect/mood MSK: L arm dressing : kidney or bladder not palpable Access: Left uppear arm AV graft with thrill and bruit. Labs/imaging reviewed. Past medical history, past surgical history, family history, social history, allergy reviewed and noted as below Family Hx: no hx of CKD. Non contributory Past Patient History - Infectious Disease Hx of Infectious Diseases: None - Tetanus Immunizations Tetanus Immunization: Unknown - Past Medical History & Family History Past Medical History?: Yes - Past Social History Smoking Status: Former Smoker - CARDIAC Hx Cardiac Disorders: Yes Hx Atrial Fibrillation: Yes Hx Cardia Arrhythmia: Yes (A-FIB) Hx Congestive Heart Failure: Yes Hx Hypertension: Yes Hx Peripheral Edema: Yes - PULMONARY Hx Respiratory Disorders: No - NEUROLOGICAL Hx Neurological Disorder: No - HEENT Hx HEENT Problems: No - RENAL Hx Chronic Kidney Disease: Yes Hx Dialysis: Yes Type of Dialysis Access: Left Upper Arm AV Shunt Date of Last Dialysis Treatment: 12/26/17 - ENDOCRINE/METABOLIC Hx Endocrine Disorders: No - HEMATOLOGICAL/ONCOLOGICAL Hx Blood Disorders: Yes Hx Anemia: Yes - INTEGUMENTARY Hx Dermatological Problems: No - MUSCULOSKELETAL/RHEUMATOLOGICAL Hx Musculoskeletal Disorders: No Hx Falls: No - GASTROINTESTINAL Hx Gastrointestinal Disorders: No - GENITOURINARY/GYNECOLOGICAL Hx Genitourinary Disorders: No Hx Prostate Problems: No - PSYCHIATRIC Hx Psychophysiologic Disorder: No Hx Substance Use: No - SURGICAL HISTORY Hx Surgeries: No - ANESTHESIA Hx Anesthesia: Yes Hx Anesthesia Reactions: No Hx Malignant Hyperthermia: No Meds Allergies/Adverse Reactions: Allergies Allergy/AdvReac Type Severity Reaction Status Date / Time morphine Allergy Severe "PROBLEM Verified 10/04/17 03:35 WITH MY KIDNEY" - Medications Medications: Current Medications Amiodarone HCl (Cordarone) 200 mg PO DAILY [facility] Last Admin: 12/30/17 10:00 Dose: Not Given Aspirin (Ecotrin) 81 mg PO DAILY [facility] Last Admin: 12/30/17 10:00 Dose: Not Given Diltiazem HCl (Cardizem) 30 mg PO QID [facility] Last Admin: 12/30/17 13:56 Dose: Not Given Heparin Sodium (Porcine) (Heparin) 5,000 units SC Q8 [facility] Last Admin: 12/30/17 14:00 Dose: Not Given Piperacillin Sod/Tazobactam Sod (Zosyn 2.25 Gm Iv Premix) 2.25 gm in 50 mls @ 100 mls/hr IVPB Q6H [facility] PRN Reason: Protocol Last Admin: 12/30/17 09:18 Dose: 50 mls Vancomycin/Sodium Chloride (Vancomycin 1 Gm/Ns 200 Ml) 1 gm in 200 mls @ 133 mls/hr IVPB DAILY [facility] Stop: 01/05/18 10:01 Oxycodone/Acetaminophen (Percocet 5/325 Mg Tab) 1 tab PO Q4H PRN PRN Reason: Pain, moderate (4-7) Stop: 01/02/18 10:56 Rosuvastatin Calcium (Crestor) 10 mg PO HS [facility] Last Admin: 12/29/17 23:55 Dose: 10 mg Sevelamer Carbonate (Renvela) 800 mg PO TIDCC [facility] Last Admin: 12/30/17 12:00 Dose: Not Given Vitamin B Complex/Vit C/Folic Acid (Nephro-Robyn) 1 tab PO 0800 [facility] Last Admin: 12/30/17 08:00 Dose: Not Given Results - Vital Signs Recent Vital Signs: Last Vital Signs Temp 97.7 F 12/30/17 14:05 Pulse 80 12/30/17 14:05 Resp 16 12/30/17 14:05 BP 115/57 L 12/30/17 14:20 Pulse Ox 97 12/30/17 14:05 - Labs Result Diagrams: 12/30/17 06:25 12/30/17 06:25 Labs: Laboratory Results - last 24 hr 12/29/17 12/29/17 12/29/17 21:14 21:48 21:48 WBC 10.2 D RBC 4.31 L Hgb 13.0 Hct 38.5 MCV 89.3 MCH 30.3 MCHC 33.9 RDW 15.7 H Plt Count 132 MPV 8.9 Neut % (Auto) 64.3 Lymph % (Auto) 10.5 L [place] % (Auto) 10.6 H Eos % (Auto) 13.8 H Baso % (Auto) 0.8 Neut # (Auto) 6.6 Lymph # (Auto) 1.1 [place] # (Auto) 1.1 H Eos # (Auto) 1.4 H Baso # (Auto) 0.1 PT INR APTT Sodium 140 Potassium 5.7 H Chloride 104 Carbon Dioxide 22 Anion Gap 20 BUN 62 H Creatinine 4.9 H Est GFR ( Amer) 14 Est GFR (Non-Af Amer) 12 Random Glucose 87 Calcium 8.8 Total Bilirubin 0.8 AST 35 ALT 15 L D Alkaline Phosphatase 75 Troponin I 0.0390 NT-Pro-B Natriuret Pep 5130 H Total Protein 8.0 Albumin 4.5 Globulin 3.5 Albumin/Globulin Ratio 1.3 Blood Type O POSITIVE Antibody Screen Negative 12/29/17 12/30/17 12/30/17 21:48 06:25 06:25 WBC 8.8 RBC 4.08 L Hgb 12.2 Hct 36.2 MCV 88.7 MCH 29.8 MCHC 33.6 RDW 15.9 H Plt Count 124 L MPV 8.6 Neut % (Auto) 62.5 Lymph % (Auto) 10.9 L [place] % (Auto) 10.0 Eos % (Auto) 15.7 H Baso % (Auto) 0.9 Neut # (Auto) 5.5 Lymph # (Auto) 1.0 [place] # (Auto) 0.9 H Eos # (Auto) 1.4 H Baso # (Auto) 0.1 PT 11.8 INR 1.1 APTT 32 Sodium 142 Potassium 5.0 Chloride 110 H Carbon Dioxide 21 L Anion Gap 17 BUN 56 H Creatinine 4.7 H Est GFR ( Amer) 15 Est GFR (Non-Af Amer) 12 Random Glucose 93 Calcium 8.3 L Total Bilirubin AST ALT Alkaline Phosphatase Troponin I NT-Pro-B Natriuret Pep Total Protein Albumin Globulin Albumin/Globulin Ratio Blood Type Antibody Screen
--- NOTE | 2017-12-30 15:02 | CP.PCM.PN ---
Subjective - Date & Time of Evaluation Date of Evaluation: 12/30/17 Time of Evaluation: 15:01 - Subjective Subjective: RENAL DIALYSIS NOTE seen on hd using L uppper arm AVG tolerating tx 2k bath Objective - Vital Signs/Intake and Output Vital Signs (last 24 hours): Temp Pulse Resp BP Pulse Ox 97.7 F 80 16 115/57 L 97 12/30/17 14:05 12/30/17 14:05 12/30/17 14:05 12/30/17 14:20 12/30/17 14:05 Intake and Output: 12/30/17 12/30/17 06:59 18:59 Intake Total 50 425 Balance 50 425 - Medications Medications: Current Medications Amiodarone HCl (Cordarone) 200 mg PO DAILY [facility] Last Admin: 12/30/17 10:00 Dose: Not Given Aspirin (Ecotrin) 81 mg PO DAILY [facility] Last Admin: 12/30/17 10:00 Dose: Not Given Diltiazem HCl (Cardizem) 30 mg PO QID [facility] Last Admin: 12/30/17 13:56 Dose: Not Given Heparin Sodium (Porcine) (Heparin) 5,000 units SC Q8 [facility] Last Admin: 12/30/17 14:00 Dose: Not Given Piperacillin Sod/Tazobactam Sod (Zosyn 2.25 Gm Iv Premix) 2.25 gm in 50 mls @ 100 mls/hr IVPB Q6H [facility] PRN Reason: Protocol Last Admin: 12/30/17 09:18 Dose: 50 mls Vancomycin/Sodium Chloride (Vancomycin 1 Gm/Ns 200 Ml) 1 gm in 200 mls @ 133 mls/hr IVPB DAILY [facility] Stop: 01/05/18 10:01 Oxycodone/Acetaminophen (Percocet 5/325 Mg Tab) 1 tab PO Q4H PRN PRN Reason: Pain, moderate (4-7) Stop: 01/02/18 10:56 Rosuvastatin Calcium (Crestor) 10 mg PO HS [facility] Last Admin: 12/29/17 23:55 Dose: 10 mg Sevelamer Carbonate (Renvela) 800 mg PO TIDCC [facility] Last Admin: 12/30/17 12:00 Dose: Not Given Vitamin B Complex/Vit C/Folic Acid (Nephro-Robyn) 1 tab PO 0800 [facility] Last Admin: 12/30/17 08:00 Dose: Not Given - Labs Labs: 12/30/17 06:25 12/30/17 06:25 PT 11.8 SECONDS (9.7-12.2) 12/29/17 21:48 INR 1.1 12/29/17 21:48 APTT 32 SECONDS (21-34) 12/29/17 21:48
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
[2017-12-31] MEDS: Piperacill/Tazo 2.25gm in Dex 2.25 GM/50 ML BAG IVPB SCH ×4 (02:55→21:42)
--- NOTE | 2017-12-31 07:22 | CP.PCM.PN ---
Subjective - Date & Time of Evaluation Date of Evaluation: 12/31/17 Time of Evaluation: 07:18 - Subjective Subjective: Vasclar Surgery Progress Note for Dr. Herrera This 67M was seen and examined this Am at bedside no acute events overnight. Patient reports his arm is sore. He denies any numbness or tingling in his hand or decreased strength. He denies chest pain, SOB or any new or concerning symptoms. Dressing clean dry and intact. Objective - Vital Signs/Intake and Output Vital Signs (last 24 hours): Temp Pulse Resp BP Pulse Ox 98.5 F 68 20 104/60 98 12/30/17 23:50 12/30/17 23:50 12/30/17 23:50 12/30/17 23:50 12/30/17 23:50 - Medications Medications: Current Medications Amiodarone HCl (Cordarone) 200 mg PO DAILY [facility] Last Admin: 12/30/17 10:00 Dose: Not Given Aspirin (Ecotrin) 81 mg PO DAILY [facility] Last Admin: 12/30/17 10:00 Dose: Not Given Diltiazem HCl (Cardizem) 30 mg PO QID [facility] Last Admin: 12/30/17 21:24 Dose: 30 mg Heparin Sodium (Porcine) (Heparin) 5,000 units SC Q8 [facility] Last Admin: 12/31/17 05:29 Dose: 5,000 units Piperacillin Sod/Tazobactam Sod (Zosyn 2.25 Gm Iv Premix) 2.25 gm in 50 mls @ 100 mls/hr IVPB Q6H [facility] PRN Reason: Protocol Last Admin: 12/31/17 02:55 Dose: 100 mls/hr Vancomycin/Sodium Chloride (Vancomycin 1 Gm/Ns 200 Ml) 1 gm in 200 mls @ 133 mls/hr IVPB DAILY [facility] Stop: 01/05/18 10:01 Oxycodone/Acetaminophen (Percocet 5/325 Mg Tab) 1 tab PO Q4H PRN PRN Reason: Pain, moderate (4-7) Stop: 01/02/18 10:56 Rosuvastatin Calcium (Crestor) 10 mg PO HS [facility] Last Admin: 12/30/17 21:23 Dose: 10 mg Sevelamer Carbonate (Renvela) 800 mg PO TIDCC [facility] Last Admin: 12/30/17 18:00 Dose: 800 mg Vitamin B Complex/Vit C/Folic Acid (Nephro-Robyn) 1 tab PO 0800 [facility] Last Admin: 12/30/17 08:00 Dose: Not Given - Labs Labs: 12/30/17 06:25 12/30/17 06:25 PT 11.8 SECONDS (9.7-12.2) 12/29/17 21:48 INR 1.1 12/29/17 21:48 APTT 32 SECONDS (21-34) 12/29/17 21:48 - Constitutional Appears: Non-toxic, No Acute Distress - Head Exam Head Exam: ATRAUMATIC, NORMOCEPHALIC - Eye Exam Eye Exam: EOMI, Normal appearance - ENT Exam ENT Exam: Mucous Membranes Moist - Respiratory Exam Respiratory Exam: NORMAL BREATHING PATTERN - Cardiovascular Exam Cardiovascular Exam: +S1, +S2 - GI/Abdominal Exam GI & Abdominal Exam: Soft. absent: Firm, Guarding, Rigid, Tenderness - Neurological Exam Neurological Exam: Alert, Awake - Psychiatric Exam Psychiatric exam: Normal Affect, Normal Mood - Skin Skin Exam: Dry, Intact Assessment and Plan - Assessment and Plan (Free Text) Assessment: 67M POD#1 s/p left AV shunt ligation and removal Ok to dialyze continue vanc f/u cultures Further recs per Dr. Sharon Salas PGY2
[2017-12-31] MEDS: Multivitamin Vitamin B Complex (Nephro-Vite) Tab PO SCH (08:25)
[2017-12-31] MEDS: Vancomycin 1 gm/NS 200 ml 1 GM/200 ML BAG IVPB SCH ×2 (10:23→10:32)
--- NOTE | 2017-12-31 15:18 | CP.PCM.PN ---
Subjective - Date & Time of Evaluation Date of Evaluation: 12/31/17 Time of Evaluation: 12:20 - Subjective Subjective: Nephrology Consultation Note: Assessment: stable Infected AVG HTN Hypertensive Chronic Kidney Disease (I12.0) End stage renal disease (N18.6) dependence on hemodialysis (Z99.2) (TTS) via AVG Anemia (D64.9), Hyperphosphatemia (E83.39), Secondary Hyperparathyroidism (E21.1 ), HTN (I12.0) Ex-smoker CHF, A. fib, history of DVT status post IVC filter, COPD, Mediastinal adenopathy Plan: HD TTS schedule f/u vascular Continue with Nephrovite 1 tab/day. no arron given hemoglobin Continue with phos binders home dose Bp stable Continue renvela, - phos ordered dose abx for ESRD - vanc changed to TTS S: states pain reasonably controlled Physical Examination: VS as below General Appearance: Comfortable, in no acute respiratory distress, co-operative . Vitals reviewed and noted as below Head; Atraumatic, normocephalic ENT: no ulcers no thrush. Tongue is midline. Oropharynx: no rash or ulcers. EYES: Pupils are equal, round and reactive to light accommodation. Eye muscles and extraocular movement intact. Sclera is anicteric. Neck; supple no lymphadenopathy, no thyromegaly or bruit Lungs: Normal respiratory rate/effort. Breath sounds bilateral Decreased at bases with basilar crackles Heart: . s1s2 normal. No rub or gallop. Extremities: no edema. No varicose veins Neurological: Patient is alert, awake and oriented to person, place and time. No focal deficit. Strength bilateral appropriate and equal Skin: Warm and dry. Normal turgor. No rash. Palpitation: dressing L forearm Abdomen: Abdomen is soft. Bowel sounds +. There is no abdominal tenderness, no guarding/rigidity or organomegaly Psych: normal insight and normal affect/mood MSK: L arm dressing : kidney or bladder not palpable Access: Left upper arm AV graft with thrill and bruit. Objective - Vital Signs/Intake and Output Vital Signs (last 24 hours): Temp Pulse Resp BP Pulse Ox 98.5 F 68 20 104/60 98 12/30/17 23:50 12/30/17 23:50 12/30/17 23:50 12/30/17 23:50 12/30/17 23:50 - Medications Medications: Current Medications Amiodarone HCl (Cordarone) 200 mg PO DAILY [facility] Last Admin: 12/31/17 10:23 Dose: 200 mg Aspirin (Ecotrin) 81 mg PO DAILY [facility] Last Admin: 12/31/17 10:23 Dose: 81 mg Diltiazem HCl (Cardizem) 30 mg PO QID [facility] Last Admin: 12/31/17 13:19 Dose: 30 mg Heparin Sodium (Porcine) (Heparin) 5,000 units SC Q8 [facility] Last Admin: 12/31/17 13:19 Dose: 5,000 units Piperacillin Sod/Tazobactam Sod (Zosyn 2.25 Gm Iv Premix) 2.25 gm in 50 mls @ 100 mls/hr IVPB Q6H [facility] PRN Reason: Protocol Last Admin: 12/31/17 10:22 Dose: 100 mls/hr Vancomycin/Sodium Chloride (Vancomycin 1 Gm/Ns 200 Ml) 1 gm in 200 mls @ 133 mls/hr IVPB TTS [facility] Stop: 01/07/18 10:01 Oxycodone/Acetaminophen (Percocet 5/325 Mg Tab) 1 tab PO Q4H PRN PRN Reason: Pain, moderate (4-7) Stop: 01/02/18 10:56 Rosuvastatin Calcium (Crestor) 10 mg PO HS [facility] Last Admin: 12/30/17 21:23 Dose: 10 mg Sevelamer Carbonate (Renvela) 800 mg PO TIDCC [facility] Last Admin: 12/31/17 12:02 Dose: 800 mg Vitamin B Complex/Vit C/Folic Acid (Nephro-Robyn) 1 tab PO 0800 [facility] Last Admin: 12/31/17 08:25 Dose: 1 tab - Labs Labs: 12/30/17 06:25 12/30/17 06:25 PT 11.8 SECONDS (9.7-12.2) 12/29/17 21:48 INR 1.1 12/29/17 21:48 APTT 32 SECONDS (21-34) 12/29/17 21:48
--- NOTE | 2017-12-31 22:59 | CP.PCM.PN ---
Subjective - Date & Time of Evaluation Date of Evaluation: 12/31/17 Time of Evaluation: 17:10 - Subjective Subjective: Patient seen and evaluated Denies chest pain and dyspnea Objective - Vital Signs/Intake and Output Vital Signs (last 24 hours): Temp Pulse Resp BP Pulse Ox 97.3 F L 66 20 112/63 96 12/31/17 16:00 12/31/17 16:00 12/31/17 16:00 12/31/17 16:00 12/31/17 16:00 - Medications Medications: Current Medications Amiodarone HCl (Cordarone) 200 mg PO DAILY [facility] Last Admin: 12/31/17 10:23 Dose: 200 mg Aspirin (Ecotrin) 81 mg PO DAILY [facility] Last Admin: 12/31/17 10:23 Dose: 81 mg Diltiazem HCl (Cardizem) 30 mg PO QID [facility] Last Admin: 12/31/17 21:44 Dose: 30 mg Heparin Sodium (Porcine) (Heparin) 5,000 units SC Q8 [facility] Last Admin: 12/31/17 21:43 Dose: 5,000 units Piperacillin Sod/Tazobactam Sod (Zosyn 2.25 Gm Iv Premix) 2.25 gm in 50 mls @ 100 mls/hr IVPB Q6H [facility] PRN Reason: Protocol Last Admin: 12/31/17 21:42 Dose: 100 mls/hr Vancomycin/Sodium Chloride (Vancomycin 1 Gm/Ns 200 Ml) 1 gm in 200 mls @ 133 mls/hr IVPB TTS [facility] Stop: 01/07/18 10:01 Oxycodone/Acetaminophen (Percocet 5/325 Mg Tab) 1 tab PO Q4H PRN PRN Reason: Pain, moderate (4-7) Stop: 01/02/18 10:56 Rosuvastatin Calcium (Crestor) 10 mg PO HS [facility] Last Admin: 12/31/17 21:43 Dose: 10 mg Sevelamer Carbonate (Renvela) 800 mg PO TIDCC [facility] Last Admin: 12/31/17 17:17 Dose: 800 mg Vitamin B Complex/Vit C/Folic Acid (Nephro-Robyn) 1 tab PO 0800 [facility] Last Admin: 12/31/17 08:25 Dose: 1 tab - Labs Labs: 12/30/17 06:25 12/30/17 06:25 PT 11.8 SECONDS (9.7-12.2) 12/29/17 21:48 INR 1.1 12/29/17 21:48 APTT 32 SECONDS (21-34) 12/29/17 21:48
--- NOTE | 2017-12-31 23:03 | CP.PCM.HP ---
History of Present Illness - History of Present Illness History of Present Illness: History Of Present Illness 67-year-old male, whose PMHx includes ESRD (dialysis //Mon) presents to the ED for evaluation of pain and swelling to his left forearm, around site of his old AV fistula. Patient states he receives dialysis through an AV fistula in his left upper arm. Patient missed dialysis yesterday due to the pain in his forearm. Patient denies fever, chills. Past Patient History - Infectious Disease Hx of Infectious Diseases: None - Tetanus Immunizations Tetanus Immunization: Unknown - Past Medical History & Family History Past Medical History?: Yes - Past Social History Smoking Status: Former Smoker - CARDIAC Hx Congestive Heart Failure: Yes Hx Hypertension: Yes - PULMONARY Hx Respiratory Disorders: No - NEUROLOGICAL Hx Neurological Disorder: No - HEENT Hx HEENT Problems: No - RENAL Hx Chronic Kidney Disease: Yes Hx Dialysis: Yes Type of Dialysis Access: Left Upper Arm AV Shunt Date of Last Dialysis Treatment: 12/26/17 - ENDOCRINE/METABOLIC Hx Endocrine Disorders: No - HEMATOLOGICAL/ONCOLOGICAL Hx Blood Disorders: Yes Hx Anemia: Yes - INTEGUMENTARY Hx Dermatological Problems: No - MUSCULOSKELETAL/RHEUMATOLOGICAL Hx Musculoskeletal Disorders: No Hx Falls: No - GASTROINTESTINAL Hx Gastrointestinal Disorders: No - GENITOURINARY/GYNECOLOGICAL Hx Genitourinary Disorders: No Hx Prostate Problems: No - PSYCHIATRIC Hx Psychophysiologic Disorder: No Hx Substance Use: No - SURGICAL HISTORY Hx Surgeries: No - ANESTHESIA Hx Anesthesia: Yes Hx Anesthesia Reactions: No Hx Malignant Hyperthermia: No Meds Allergies/Adverse Reactions: Allergies Allergy/AdvReac Type Severity Reaction Status Date / Time morphine Allergy Severe "PROBLEM Verified 10/04/17 03:35 WITH MY KIDNEY" Results - Vital Signs Recent Vital Signs: Last Vital Signs Temp 97.3 F L 12/31/17 16:00 Pulse 66 12/31/17 16:00 Resp 20 12/31/17 16:00 BP 112/63 12/31/17 16:00 Pulse Ox 96 12/31/17 16:00 - Labs Result Diagrams: 12/30/17 06:25 12/30/17 06:25 Labs: Laboratory Results - last 24 hr 12/31/17 09:29 Phosphorus 4.3
--- NOTE | 2017-12-31 23:06 | CP.PCM.PN ---
Subjective - Date & Time of Evaluation Date of Evaluation: 12/31/17 Time of Evaluation: 19:00 - Subjective Subjective: Pt was seen and examined this Am at bedside no acute events overnight. Patient reports his arm is sore. He denies any numbness or tingling in his hand or decreased strength. He denies chest pain, SOB or any new or concerning symptoms. Dressing clean dry and intact. Objective - Vital Signs/Intake and Output Vital Signs (last 24 hours): Temp Pulse Resp BP Pulse Ox 97.3 F L 66 20 112/63 96 12/31/17 16:00 12/31/17 16:00 12/31/17 16:00 12/31/17 16:00 12/31/17 16:00 - Medications Medications: Current Medications Amiodarone HCl (Cordarone) 200 mg PO DAILY [facility] Last Admin: 12/31/17 10:23 Dose: 200 mg Aspirin (Ecotrin) 81 mg PO DAILY [facility] Last Admin: 12/31/17 10:23 Dose: 81 mg Diltiazem HCl (Cardizem) 30 mg PO QID [facility] Last Admin: 12/31/17 21:44 Dose: 30 mg Heparin Sodium (Porcine) (Heparin) 5,000 units SC Q8 [facility] Last Admin: 12/31/17 21:43 Dose: 5,000 units Piperacillin Sod/Tazobactam Sod (Zosyn 2.25 Gm Iv Premix) 2.25 gm in 50 mls @ 100 mls/hr IVPB Q6H [facility] PRN Reason: Protocol Last Admin: 12/31/17 21:42 Dose: 100 mls/hr Vancomycin/Sodium Chloride (Vancomycin 1 Gm/Ns 200 Ml) 1 gm in 200 mls @ 133 mls/hr IVPB TTS [facility] Stop: 01/07/18 10:01 Oxycodone/Acetaminophen (Percocet 5/325 Mg Tab) 1 tab PO Q4H PRN PRN Reason: Pain, moderate (4-7) Stop: 01/02/18 10:56 Rosuvastatin Calcium (Crestor) 10 mg PO HS [facility] Last Admin: 12/31/17 21:43 Dose: 10 mg Sevelamer Carbonate (Renvela) 800 mg PO TIDCC [facility] Last Admin: 12/31/17 17:17 Dose: 800 mg Vitamin B Complex/Vit C/Folic Acid (Nephro-Robyn) 1 tab PO 0800 [facility] Last Admin: 12/31/17 08:25 Dose: 1 tab - Labs Labs: 12/30/17 06:25 12/30/17 06:25 PT 11.8 SECONDS (9.7-12.2) 12/29/17 21:48 INR 1.1 12/29/17 21:48 APTT 32 SECONDS (21-34) 12/29/17 21:48
[2018-01-01] MEDS: Piperacill/Tazo 2.25gm in Dex 2.25 GM/50 ML BAG IVPB SCH ×4 (03:22→21:00)
--- NOTE | 2018-01-01 07:36 | CP.PCM.PN ---
Subjective - Date & Time of Evaluation Date of Evaluation: 01/01/18 Time of Evaluation: 07:33 - Subjective Subjective: SURGERY NOTE FOR DR. VAZQUEZ 67M seen and examined at bedside. Patient states left arm pain is well controlled. Denies any events overnight. Denies fevers, chills. Objective - Vital Signs/Intake and Output Vital Signs (last 24 hours): Temp Pulse Resp BP Pulse Ox 97.4 F L 68 20 109/64 97 12/31/17 23:29 12/31/17 23:29 12/31/17 23:29 12/31/17 23:29 12/31/17 23:29 - Medications Medications: Current Medications Amiodarone HCl (Cordarone) 200 mg PO DAILY [facility] Last Admin: 12/31/17 10:23 Dose: 200 mg Aspirin (Ecotrin) 81 mg PO DAILY [facility] Last Admin: 12/31/17 10:23 Dose: 81 mg Diltiazem HCl (Cardizem) 30 mg PO QID [facility] Last Admin: 12/31/17 21:44 Dose: 30 mg Heparin Sodium (Porcine) (Heparin) 5,000 units SC Q8 [facility] Last Admin: 01/01/18 05:09 Dose: 5,000 units Piperacillin Sod/Tazobactam Sod (Zosyn 2.25 Gm Iv Premix) 2.25 gm in 50 mls @ 100 mls/hr IVPB Q6H [facility] PRN Reason: Protocol Last Admin: 01/01/18 03:22 Dose: 100 mls/hr Vancomycin/Sodium Chloride (Vancomycin 1 Gm/Ns 200 Ml) 1 gm in 200 mls @ 133 mls/hr IVPB TTS [facility] Stop: 01/07/18 10:01 Oxycodone/Acetaminophen (Percocet 5/325 Mg Tab) 1 tab PO Q4H PRN PRN Reason: Pain, moderate (4-7) Stop: 01/02/18 10:56 Rosuvastatin Calcium (Crestor) 10 mg PO HS [facility] Last Admin: 12/31/17 21:43 Dose: 10 mg Sevelamer Carbonate (Renvela) 800 mg PO TIDCC [facility] Last Admin: 12/31/17 17:17 Dose: 800 mg Vitamin B Complex/Vit C/Folic Acid (Nephro-Robyn) 1 tab PO 0800 [facility] Last Admin: 12/31/17 08:25 Dose: 1 tab - Labs Labs: 12/30/17 06:25 12/30/17 06:25 PT 11.8 SECONDS (9.7-12.2) 12/29/17 21:48 INR 1.1 12/29/17 21:48 APTT 32 SECONDS (21-34) 12/29/17 21:48 - Constitutional Appears: Non-toxic - Respiratory Exam Respiratory Exam: Clear to Ausculation Bilateral, NORMAL BREATHING PATTERN - Cardiovascular Exam Cardiovascular Exam: REGULAR RHYTHM, +S1, +S2 - GI/Abdominal Exam GI & Abdominal Exam: Soft. absent: Distended, Firm, Guarding, Rigid, Tenderness , Rebound - Extremities Exam Additional comments: left arm tenderness, packing in place, draining serosanguinous - Neurological Exam Neurological Exam: Alert, Awake - Skin Skin Exam: Dry, Intact, Normal Color, Warm Assessment and Plan - Assessment and Plan (Free Text) Assessment: 67M s/p removal of infected left arm AV graft POD#2 Plan: - Packing removed - Operation site re-dressed - Continue antibiotics Further recs discuss with Dr. Sharon Mas, PGY2
[2018-01-01] MEDS: Multivitamin Vitamin B Complex (Nephro-Vite) Tab PO SCH (07:51)
--- NOTE | 2018-01-01 09:13 | OP ---
PROCEDURE DATE: 12/30/2017 PREOPERATIVE DIAGNOSIS: Infected forearm shunt, left arm. PROCEDURE CARRIED OUT: Removal of infected shunt, left forearm. SURGEON: Rolly Herrera Jr., MD CHILD CARE SUPERVISOR: Josue Joshua ANESTHESIOLOGIST: Halima Nguyen INDICATION: The patient is a middle-aged man with a history of renal insufficiency, thrombosis on the forearm and functioning shunt in the left upper arm. Forearm shunt was not done by sc. OPERATIVE FINDINGS: The shunt was removed except for tissue attached to both the arterial and venous anastomoses. Part of the graft was completely unincorporated and easily removed, but other portions of particularly adjacent to the anastomoses were quite difficult to remove. There was a blood loss of approximately 150 to 200 mL during the procedure. DESCRIPTION OF PROCEDURE: The patient was given general anesthesia and intravenous antibiotics. Standard skin prep was carried out. After this had been done, we then dissected out the arterial and venous sites of the anastomosis, oversewed these and ligated these. We then dissected out the most inflamed portion of the graft at the loop in the forearm and then attempted to remove from both sides. Additional counter incisions had to be made to allow this to be removed, but the entire loop was removed except for the perianastomotic areas. After this had been done, we then packed the wounds open. Irrigated both with peroxide and with Irrisept solution. We terminated the procedure. Operation carried out is removal of infected shunt in the left forearm. Rolly Herrera Jr., MD cc: Melvin rGove Dr[address] Saleem
--- NOTE | 2018-01-01 16:10 | CP.PCM.PN ---
Subjective - Date & Time of Evaluation Date of Evaluation: 01/01/18 Time of Evaluation: 16:09 - Subjective Subjective: Nephrology Consultation Note: Assessment: stable Infected AVG s/p excision HTN Hypertensive Chronic Kidney Disease (I12.0) End stage renal disease (N18.6) dependence on hemodialysis (Z99.2) (TTS) via AVG Anemia (D64.9), Hyperphosphatemia (E83.39), Secondary Hyperparathyroidism (E21.1 ), HTN (I12.0) Ex-smoker CHF, A. fib, history of DVT status post IVC filter, COPD, Mediastinal adenopathy Plan: HD TTS schedule Continue with Nephrovite 1 tab/day. no arron given hemoglobin 12.2 Continue with phos binders home dose, last phos 4.3 Bp stable and controlled dose abx for ESRD - vanc changed to TTS S: states pain reasonably controlled. denies CP/SOB/nausea/vomitting Physical Examination: VS as below General Appearance: Comfortable, in no acute respiratory distress, co-operative . Vitals reviewed and noted as below Head; Atraumatic, normocephalic ENT: no ulcers no thrush. Tongue is midline. Oropharynx: no rash or ulcers. EYES: Pupils are equal, round and reactive to light accommodation. Eye muscles and extraocular movement intact. Sclera is anicteric. Neck; supple no lymphadenopathy, no thyromegaly or bruit Lungs: Normal respiratory rate/effort. Breath sounds bilateral Decreased at bases with basilar crackles Heart: . s1s2 normal. No rub or gallop. Extremities: no edema. No varicose veins Neurological: Patient is alert, awake and oriented to person, place and time. No focal deficit. Strength bilateral appropriate and equal Skin: Warm and dry. Normal turgor. No rash. Palpitation: dressing L forearm Abdomen: Abdomen is soft. Bowel sounds +. There is no abdominal tenderness, no guarding/rigidity or organomegaly Psych: normal insight and normal affect/mood MSK: L forearm dressing : kidney or bladder not palpable Access: Left upper arm AV access with thrill and bruit. thanks for consult Please call if any Qs Objective - Vital Signs/Intake and Output Vital Signs (last 24 hours): Temp Pulse Resp BP Pulse Ox 97.4 F L 63 20 140/72 100 01/01/18 07:00 01/01/18 07:00 01/01/18 07:00 01/01/18 07:00 01/01/18 07:00 - Medications Medications: Current Medications Amiodarone HCl (Cordarone) 200 mg PO DAILY [facility] Last Admin: 01/01/18 09:16 Dose: 200 mg Aspirin (Ecotrin) 81 mg PO DAILY [facility] Last Admin: 01/01/18 09:16 Dose: 81 mg Diltiazem HCl (Cardizem) 30 mg PO QID [facility] Last Admin: 01/01/18 13:34 Dose: 30 mg Heparin Sodium (Porcine) (Heparin) 5,000 units SC Q8 [facility] Last Admin: 01/01/18 12:59 Dose: Not Given Piperacillin Sod/Tazobactam Sod (Zosyn 2.25 Gm Iv Premix) 2.25 gm in 50 mls @ 100 mls/hr IVPB Q6H [facility] PRN Reason: Protocol Last Admin: 01/01/18 09:16 Dose: 100 mls/hr Vancomycin/Sodium Chloride (Vancomycin 1 Gm/Ns 200 Ml) 1 gm in 200 mls @ 133 mls/hr IVPB TTS [facility] Stop: 01/07/18 10:01 Oxycodone/Acetaminophen (Percocet 5/325 Mg Tab) 1 tab PO Q4H PRN PRN Reason: Pain, moderate (4-7) Stop: 01/02/18 10:56 Rosuvastatin Calcium (Crestor) 10 mg PO HS [facility] Last Admin: 12/31/17 21:43 Dose: 10 mg Sevelamer Carbonate (Renvela) 800 mg PO TIDCC [facility] Last Admin: 01/01/18 11:33 Dose: 800 mg Vitamin B Complex/Vit C/Folic Acid (Nephro-Robyn) 1 tab PO 0800 [facility] Last Admin: 01/01/18 07:51 Dose: 1 tab - Labs Labs: 12/30/17 06:25 12/30/17 06:25 PT 11.8 SECONDS (9.7-12.2) 12/29/17 21:48 INR 1.1 12/29/17 21:48 APTT 32 SECONDS (21-34) 12/29/17 21:48
[2018-01-02] MEDS: Piperacill/Tazo 2.25gm in Dex 2.25 GM/50 ML BAG IVPB SCH (03:10)
--- NOTE | 2018-01-02 05:58 | CP.PCM.PN ---
Subjective - Date & Time of Evaluation Date of Evaluation: 01/01/18 Time of Evaluation: 19:00 - Subjective Subjective: Pt seen and examined at bedside Objective - Vital Signs/Intake and Output Vital Signs (last 24 hours): Temp Pulse Resp BP Pulse Ox 97.9 F 60 20 122/65 99 01/02/18 00:00 01/02/18 00:00 01/02/18 00:00 01/02/18 00:00 01/02/18 00:00 - Medications Medications: Current Medications Amiodarone HCl (Cordarone) 200 mg PO DAILY [facility] Last Admin: 01/01/18 09:16 Dose: 200 mg Aspirin (Ecotrin) 81 mg PO DAILY [facility] Last Admin: 01/01/18 09:16 Dose: 81 mg Diltiazem HCl (Cardizem) 30 mg PO QID [facility] Last Admin: 01/01/18 21:12 Dose: 30 mg Heparin Sodium (Porcine) (Heparin) 5,000 units SC Q8 [facility] Last Admin: 01/01/18 21:25 Dose: Not Given Piperacillin Sod/Tazobactam Sod (Zosyn 2.25 Gm Iv Premix) 2.25 gm in 50 mls @ 100 mls/hr IVPB Q6H [facility] PRN Reason: Protocol Last Admin: 01/02/18 03:10 Dose: 100 mls/hr Vancomycin/Sodium Chloride (Vancomycin 1 Gm/Ns 200 Ml) 1 gm in 200 mls @ 133 mls/hr IVPB TTS [facility] Stop: 01/07/18 10:01 Oxycodone/Acetaminophen (Percocet 5/325 Mg Tab) 1 tab PO Q4H [facility] PRN Reason: Pain, moderate (4-7) Stop: 01/02/18 10:56 Rosuvastatin Calcium (Crestor) 10 mg PO HS [facility] Last Admin: 01/01/18 21:31 Dose: 10 mg Sevelamer Carbonate (Renvela) 800 mg PO TIDCC [facility] Last Admin: 01/01/18 17:21 Dose: 800 mg Vitamin B Complex/Vit C/Folic Acid (Nephro-Robyn) 1 tab PO 0800 [facility] Last Admin: 01/01/18 07:51 Dose: 1 tab - Labs Labs: 12/30/17 06:25 12/30/17 06:25 PT 11.8 SECONDS (9.7-12.2) 12/29/17 21:48 INR 1.1 12/29/17 21:48 APTT 32 SECONDS (21-34) 12/29/17 21:48
[2018-01-02] MEDS: Multivitamin Vitamin B Complex (Nephro-Vite) Tab PO SCH (07:40)
[2018-01-02] MEDS ORDERED: Vancomycin 1 gm/NS 200 ml 1 GM/200 ML BAG IVPB SCH (10:00)
[2018-01-02] MEDS ORDERED: ceFAZolin 2 GM in Sodium Chloride 0.9% 100 ML IVPB SCH (11:00)
--- NOTE | 2018-01-02 11:48 | CP.PCM.PN ---
Subjective - Date & Time of Evaluation Date of Evaluation: 01/02/18 Time of Evaluation: 11:45 - Subjective Subjective: Vascular Surgery Progress Note for Dr. Herrera This 67M was seen and examined this AM at bedside. No acute events overnight. Pt with blood stained dressing. Pt reports he intends to go home today. He reports he is tolerating diet, moving bowels without issue and ambulating without issue. Objective - Vital Signs/Intake and Output Vital Signs (last 24 hours): Temp Pulse Resp BP Pulse Ox 97.5 F L 69 20 116/57 L 100 01/02/18 09:40 01/02/18 09:40 01/02/18 09:40 01/02/18 10:25 01/02/18 09:40 - Medications Medications: Current Medications Amiodarone HCl (Cordarone) 200 mg PO DAILY [facility] Last Admin: 01/02/18 11:23 Dose: Not Given Aspirin (Ecotrin) 81 mg PO DAILY [facility] Last Admin: 01/02/18 11:23 Dose: Not Given Diltiazem HCl (Cardizem) 30 mg PO QID [facility] Last Admin: 01/02/18 11:22 Dose: Not Given Heparin Sodium (Porcine) (Heparin) 5,000 units SC Q8 [facility] Last Admin: 01/01/18 21:25 Dose: Not Given Cefazolin Sodium 2 gm/ Sodium (Chloride) 100 mls @ 200 mls/hr IVPB TUTH [facility] PRN Reason: Protocol Stop: 01/16/18 11:01 Cefazolin Sodium 3 gm/ Sodium (Chloride) 100 mls @ 200 mls/hr IVPB Sa@1000 [facility] PRN Reason: Protocol Stop: 01/16/18 10:01 Rosuvastatin Calcium (Crestor) 10 mg PO HS [facility] Last Admin: 01/01/18 21:31 Dose: 10 mg Sevelamer Carbonate (Renvela) 800 mg PO TIDCC [facility] Last Admin: 01/02/18 07:50 Dose: 800 mg Vitamin B Complex/Vit C/Folic Acid (Nephro-Robyn) 1 tab PO 0800 [facility] Last Admin: 01/02/18 07:40 Dose: 1 tab - Labs Labs: 12/30/17 06:25 12/30/17 06:25 PT 11.8 SECONDS (9.7-12.2) 12/29/17 21:48 INR 1.1 12/29/17 21:48 APTT 32 SECONDS (21-34) 12/29/17 21:48 - Constitutional Appears: Non-toxic, Toxic - Head Exam Head Exam: ATRAUMATIC, NORMOCEPHALIC - Eye Exam Eye Exam: EOMI - ENT Exam ENT Exam: Mucous Membranes Moist - Respiratory Exam Respiratory Exam: NORMAL BREATHING PATTERN - Cardiovascular Exam Cardiovascular Exam: +S1, +S2 - GI/Abdominal Exam GI & Abdominal Exam: Soft. absent: Firm, Guarding, Rigid, Tenderness - Neurological Exam Neurological Exam: Alert, Awake - Psychiatric Exam Psychiatric exam: Normal Affect, Normal Mood - Skin Skin Exam: Dry, Intact Assessment and Plan - Assessment and Plan (Free Text) Assessment: 67M POD#3 S/P AV Shunt removal Patient reports he would like to leave today. If he leave we will remove pressure dressing before discharge. D/W Dr. hSaron Salas PGY2
--- NOTE | 2018-01-02 12:04 | CARD ---
APPROVED REPORT EKG Measurement Heart [id number] <Conclusion> Normal sinus rhythm Biatrial enlargement Left ventricular hypertrophy T wave abnormality, consider anterolateral ischemia Abnormal ECG
[2018-01-02 12:27] LABS: BASO # 0.1 K/uL (0.0-0.2); BASO % 1.2 % (0.0-2.0); HEMOGLOBIN 11.7 g/dL (12.0-18.0); LYMPH # 0.6 K/uL (1.0-4.3); MEAN CORPUSCULAR HEMOGLOBIN 29.5 pg (27.0-31.0); MEAN PLATELET VOLUME 8.6 fL (7.2-11.7); MONO # 0.5 K/uL (0.0-0.8); MONO % 8.3 % (0.0-10.0); NEUT # 3.3 K/uL (1.8-7.0); NEUT % 60.5 % (50.0-75.0); RBC 3.95 Mil/uL (4.40-5.90); RED CELL DISTRIBUTION WIDTH 15.2 % (11.5-14.5); WHITE BLOOD COUNT 5.5 K/uL (4.8-10.8)
--- NOTE | 2018-01-02 12:27 | PCM.RRT ---
RESPIRATORY THERAPIST Nurses Assessment - Situation Date: 01/02/18 New IV Insertion Tolerance: Good - Constitutional Appears: No Acute Distress - Head Head Exam: NORMAL INSPECTION - Eyes Eye Exam: EOMI - Respiratory Exam Respiratory Exam: NORMAL BREATHING PATTERN. absent: Rales, Rhonchi, Wheezes - Cardiovascular Exam Cardiovascular Exam: Tachycardia, Irregular Rhythm, +S1, +S2 - GI/Abdominal Exam GI & Abdominal Exam: Soft, Normal Bowel Sounds. absent: Distended, Tenderness - Neurological Exam Neurological Exam: Awake - Extremities Exam Extremities Exam: Normal Inspection Plan - Assessment of Findings&Treatment Plan RESPIRATORY THERAPIST was called for rapid afib at 11:57am in the dialysis center. Initial vitals were taken and were HR 124, BP 155/105. Patient was complaining of sternal chest pain. EKG was ordered stat. Labs were not done in the AM, so CBC, CMP,, Mg , Phos were ordered stat as well. It was noted that patient had not taken his cardizem 30mg PO QID or Amiodarone 200mg PO today as he was getting dialysis. Patient was given Cardizem 25mg IVP. Vitals were retaken- HR 180, BP 153/82. Patient was given another Cardizem 25mg IVP, as well as his PO cardizem 30mg and PO amdiodarone 200mg. Vitals were rechecked and were 114/74, HR 101. Patient 's symptoms resolved. Patient was transferred to telemetry.
--- NOTE | 2018-01-02 12:40 | CP.PCM.PN ---
Subjective - Date & Time of Evaluation Date of Evaluation: 01/02/18 Time of Evaluation: 12:39 - Subjective Subjective: Nephrology Consultation Note: Assessment: stable MSSA Infected AVG s/p excision HTN Hypertensive Chronic Kidney Disease (I12.0) End stage renal disease (N18.6) dependence on hemodialysis (Z99.2) (TTS) via AVG Anemia (D64.9), Hyperphosphatemia (E83.39), Secondary Hyperparathyroidism (E21.1 ), HTN (I12.0) Ex-smoker CHF, A. fib, history of DVT status post IVC filter, COPD, Mediastinal adenopathy Plan: HD today per TTS schedule as ordered Continue with Nephrovite 1 tab/day. no arron given hemoglobin 12.2 Continue with phos binders home dose, last phos 4.3 Bp stable and controlled dose abx for ESRD - vanc changed to ancef 2 gm tur/thur and 3 gram on saturdays and stopped zosyn S: states pain reasonably controlled. denies CP/SOB/nausea/vomitting Physical Examination: seen on HD General Appearance: Comfortable, in no acute respiratory distress, co-operative . Vitals reviewed and noted as below Head; Atraumatic, normocephalic ENT: no ulcers no thrush. Tongue is midline. Oropharynx: no rash or ulcers. EYES: Pupils are equal, round and reactive to light accommodation. Eye muscles and extraocular movement intact. Sclera is anicteric. Neck; supple no lymphadenopathy, no thyromegaly or bruit Lungs: Normal respiratory rate/effort. Breath sounds bilateral Decreased at bases with basilar crackles Heart: . s1s2 normal. No rub or gallop. Extremities: no edema. No varicose veins Neurological: Patient is alert, awake and oriented to person, place and time. No focal deficit. Strength bilateral appropriate and equal Skin: Warm and dry. Normal turgor. No rash. Palpitation: dressing L forearm Abdomen: Abdomen is soft. Bowel sounds +. There is no abdominal tenderness, no guarding/rigidity or organomegaly Psych: normal insight and normal affect/mood MSK: L forearm dressing : kidney or bladder not palpable Access: Left upper arm AV access with thrill and bruit. thanks for consult Please call if any Qs Objective - Vital Signs/Intake and Output Vital Signs (last 24 hours): Temp Pulse Resp BP Pulse Ox 97.5 F L 69 20 116/57 L 100 01/02/18 09:40 01/02/18 09:40 01/02/18 09:40 01/02/18 10:25 01/02/18 09:40 - Medications Medications: Current Medications Amiodarone HCl (Cordarone) 200 mg PO DAILY [facility] Last Admin: 01/02/18 11:23 Dose: Not Given Aspirin (Ecotrin) 81 mg PO DAILY [facility] Last Admin: 01/02/18 11:23 Dose: Not Given Diltiazem HCl (Cardizem) 30 mg PO QID [facility] Last Admin: 01/02/18 11:22 Dose: Not Given Heparin Sodium (Porcine) (Heparin) 5,000 units SC Q8 [facility] Last Admin: 01/01/18 21:25 Dose: Not Given Cefazolin Sodium 2 gm/ Sodium (Chloride) 100 mls @ 200 mls/hr IVPB TUTH [facility] PRN Reason: Protocol Stop: 01/16/18 11:01 Cefazolin Sodium 3 gm/ Sodium (Chloride) 100 mls @ 200 mls/hr IVPB Sa@1000 [facility] PRN Reason: Protocol Stop: 01/16/18 10:01 Rosuvastatin Calcium (Crestor) 10 mg PO HS [facility] Last Admin: 01/01/18 21:31 Dose: 10 mg Sevelamer Carbonate (Renvela) 800 mg PO TIDCC [facility] Last Admin: 01/02/18 07:50 Dose: 800 mg Vitamin B Complex/Vit C/Folic Acid (Nephro-Robyn) 1 tab PO 0800 [facility] Last Admin: 01/02/18 07:40 Dose: 1 tab - Labs Labs: 01/02/18 12:21 12/30/17 06:25 PT 11.8 SECONDS (9.7-12.2) 12/29/17 21:48 INR 1.1 12/29/17 21:48 APTT 32 SECONDS (21-34) 12/29/17 21:48
[2018-01-02 13:08] LABS: ALB/GLOB RATIO 1.2 (1.0-2.1); ALBUMIN 3.9 g/dL (3.5-5.0); CALCIUM 8.6 mg/dl (8.6-10.4)
[2018-01-02 13:15] LABS: CK-MB 2.31 ng/mL (0.0-3.38); TROPONIN I 0.054 ng/mL (0.00-0.120)
--- NOTE | 2018-01-02 22:04 | CP.PCM.PN ---
Subjective - Date & Time of Evaluation Date of Evaluation: 01/02/18 Time of Evaluation: 19:00 - Subjective Subjective: Pt seen and examined at bedside, [employer]AD called due to chest pain and fast HR pt with rapid A fib stopped HD due to pt CV symptoms. he received 2.5 hrs of HD today Objective - Vital Signs/Intake and Output Vital Signs (last 24 hours): Temp Pulse Resp BP Pulse Ox 97.8 F 106 H 20 111/63 97 01/02/18 15:00 01/02/18 15:00 01/02/18 15:00 01/02/18 15:00 01/02/18 15:00 - Medications Medications: Current Medications Amiodarone HCl (Cordarone) 200 mg PO DAILY [facility] Last Admin: 01/02/18 12:57 Dose: 200 mg Aspirin (Ecotrin) 81 mg PO DAILY [facility] Last Admin: 01/02/18 11:23 Dose: Not Given Diltiazem HCl (Cardizem) 30 mg PO QID [facility] Last Admin: 01/02/18 17:15 Dose: 30 mg Heparin Sodium (Porcine) (Heparin) 5,000 units SC Q8 [facility] Last Admin: 01/02/18 14:40 Dose: Not Given Cefazolin Sodium 2 gm/ Sodium (Chloride) 100 mls @ 200 mls/hr IVPB TUTH [facility] PRN Reason: Protocol Stop: 01/16/18 11:01 Last Admin: 01/02/18 14:24 Dose: 200 mls/hr Cefazolin Sodium 3 gm/ Sodium (Chloride) 100 mls @ 200 mls/hr IVPB Sa@1000 [facility] PRN Reason: Protocol Stop: 01/16/18 10:01 Rosuvastatin Calcium (Crestor) 10 mg PO HS [facility] Last Admin: 01/01/18 21:31 Dose: 10 mg Sevelamer Carbonate (Renvela) 800 mg PO TIDCC [facility] Last Admin: 01/02/18 17:15 Dose: 800 mg Vitamin B Complex/Vit C/Folic Acid (Nephro-Robyn) 1 tab PO 0800 [facility] Last Admin: 01/02/18 07:40 Dose: 1 tab - Labs Labs: 01/02/18 12:21 01/02/18 12:21 PT 11.8 SECONDS (9.7-12.2) 12/29/17 21:48 INR 1.1 12/29/17 21:48 APTT 32 SECONDS (21-34) 12/29/17 21:48 - Constitutional Appears: No Acute Distress - Head Exam Head Exam: ATRAUMATIC, NORMAL INSPECTION, NORMOCEPHALIC - Eye Exam Eye Exam: EOMI, Normal appearance, PERRL Pupil Exam: NORMAL ACCOMODATION, PERRL - ENT Exam ENT Exam: Mucous Membranes Moist, Normal Exam - Neck Exam Neck Exam: Full ROM, Normal Inspection. absent: Lymphadenopathy - Respiratory Exam Respiratory Exam: Clear to Ausculation Bilateral, NORMAL BREATHING PATTERN - Cardiovascular Exam Cardiovascular Exam: REGULAR RHYTHM, +S1, +S2. absent: Murmur - GI/Abdominal Exam GI & Abdominal Exam: Soft, Normal Bowel Sounds. absent: Tenderness Assessment and Plan (1) A-fib Status: Acute (2) Anemia Status: Acute (3) DVT (deep venous thrombosis) Status: Acute (4) ESRD on dialysis Status: Chronic
--- NOTE | 2018-01-03 00:20 | CP.PCM.PN ---
Subjective - Date & Time of Evaluation Date of Evaluation: 01/01/18 Time of Evaluation: 16:10 Objective - Vital Signs/Intake and Output Vital Signs (last 24 hours): Temp Pulse Resp BP Pulse Ox 97.8 F 106 H 20 111/63 97 01/02/18 15:00 01/02/18 15:00 01/02/18 15:00 01/02/18 15:00 01/02/18 15:00 - Medications Medications: Current Medications Amiodarone HCl (Cordarone) 200 mg PO DAILY [facility] Last Admin: 01/02/18 12:57 Dose: 200 mg Aspirin (Ecotrin) 81 mg PO DAILY [facility] Last Admin: 01/02/18 11:23 Dose: Not Given Diltiazem HCl (Cardizem) 30 mg PO QID [facility] Last Admin: 01/02/18 22:39 Dose: 30 mg Heparin Sodium (Porcine) (Heparin) 5,000 units SC Q8 [facility] Last Admin: 01/02/18 22:33 Dose: Not Given Cefazolin Sodium 2 gm/ Sodium (Chloride) 100 mls @ 200 mls/hr IVPB TUTH [facility] PRN Reason: Protocol Stop: 01/16/18 11:01 Last Admin: 01/02/18 14:24 Dose: 200 mls/hr Cefazolin Sodium 3 gm/ Sodium (Chloride) 100 mls @ 200 mls/hr IVPB Sa@1000 [facility] PRN Reason: Protocol Stop: 01/16/18 10:01 Rosuvastatin Calcium (Crestor) 10 mg PO HS [facility] Last Admin: 01/02/18 22:39 Dose: 10 mg Sevelamer Carbonate (Renvela) 800 mg PO TIDCC [facility] Last Admin: 01/02/18 17:15 Dose: 800 mg Vitamin B Complex/Vit C/Folic Acid (Nephro-Robyn) 1 tab PO 0800 [facility] Last Admin: 01/02/18 07:40 Dose: 1 tab - Labs Labs: 01/02/18 12:21 01/02/18 12:21 PT 11.8 SECONDS (9.7-12.2) 12/29/17 21:48 INR 1.1 12/29/17 21:48 APTT 32 SECONDS (21-34) 12/29/17 21:48
--- NOTE | 2018-01-03 00:21 | CP.PCM.PN ---
Subjective - Date & Time of Evaluation Date of Evaluation: 01/02/18 Time of Evaluation: 21:10 Objective - Vital Signs/Intake and Output Vital Signs (last 24 hours): Temp Pulse Resp BP Pulse Ox 97.8 F 106 H 20 111/63 97 01/02/18 15:00 01/02/18 15:00 01/02/18 15:00 01/02/18 15:00 01/02/18 15:00 - Medications Medications: Current Medications Amiodarone HCl (Cordarone) 200 mg PO DAILY [facility] Last Admin: 01/02/18 12:57 Dose: 200 mg Aspirin (Ecotrin) 81 mg PO DAILY [facility] Last Admin: 01/02/18 11:23 Dose: Not Given Diltiazem HCl (Cardizem) 30 mg PO QID [facility] Last Admin: 01/02/18 22:39 Dose: 30 mg Heparin Sodium (Porcine) (Heparin) 5,000 units SC Q8 [facility] Last Admin: 01/02/18 22:33 Dose: Not Given Cefazolin Sodium 2 gm/ Sodium (Chloride) 100 mls @ 200 mls/hr IVPB TUTH [facility] PRN Reason: Protocol Stop: 01/16/18 11:01 Last Admin: 01/02/18 14:24 Dose: 200 mls/hr Cefazolin Sodium 3 gm/ Sodium (Chloride) 100 mls @ 200 mls/hr IVPB Sa@1000 [facility] PRN Reason: Protocol Stop: 01/16/18 10:01 Rosuvastatin Calcium (Crestor) 10 mg PO HS [facility] Last Admin: 01/02/18 22:39 Dose: 10 mg Sevelamer Carbonate (Renvela) 800 mg PO TIDCC [facility] Last Admin: 01/02/18 17:15 Dose: 800 mg Vitamin B Complex/Vit C/Folic Acid (Nephro-Robyn) 1 tab PO 0800 [facility] Last Admin: 01/02/18 07:40 Dose: 1 tab - Labs Labs: 01/02/18 12:21 01/02/18 12:21 PT 11.8 SECONDS (9.7-12.2) 12/29/17 21:48 INR 1.1 12/29/17 21:48 APTT 32 SECONDS (21-34) 12/29/17 21:48
[2018-01-03] MEDS: Multivitamin Vitamin B Complex (Nephro-Vite) Tab PO SCH (07:50)
[2018-01-03 09:07] VITALS: RESP 20
[2018-01-03 09:09] VITALS: BP 137/74; PULSE 74; TEMP 98; O2SAT 98
--- NOTE | 2018-01-03 16:02 | CP.PCM.DIS ---
Provider - Provider Date of Admission: 12/29/17 21:02 Attending physician: Preston Toth MD Time Spent in preparation of Discharge (in minutes): 45 Diagnosis - Discharge Diagnosis (1) A-fib Status: Acute (2) Anemia Status: Acute (3) DVT (deep venous thrombosis) Status: Acute Priority: High (4) ESRD on dialysis Status: Chronic Hospital Course - Lab Results Lab Results: Micro Results 12/29/17 21:00 Blood Blood Culture - Preliminary NO GROWTH AFTER 4 DAYS 12/29/17 20:30 Blood Blood Culture - Preliminary NO GROWTH AFTER 4 DAYS 12/30/17 15:39 Arm - Left Gram Stain - Final 12/30/17 15:39 Arm - Left Wound Culture - Final Staphylococcus Aureus Most Recent Lab Values WBC 5.5 K/uL (4.8-10.8) 01/02/18 12:21 RBC 3.95 Mil/uL (4.40-5.90) L 01/02/18 12:21 Hgb 11.7 g/dL (12.0-18.0) L 01/02/18 12:21 Hct 34.3 % (35.0-51.0) L 01/02/18 12:21 MCV 87.0 fL (80.0-94.0) 01/02/18 12:21 MCH 29.5 pg (27.0-31.0) 01/02/18 12:21 MCHC 34.0 g/dL (33.0-37.0) 01/02/18 12:21 RDW 15.2 % (11.5-14.5) H 01/02/18 12:21 Plt Count 133 K/uL (130-400) 01/02/18 12:21 MPV 8.6 fL (7.2-11.7) 01/02/18 12:21 Neut % (Auto) 60.5 % (50.0-75.0) 01/02/18 12:21 Lymph % (Auto) 11.0 % (20.0-40.0) L 01/02/18 12:21 [place] % (Auto) 8.3 % (0.0-10.0) 01/02/18 12:21 Eos % (Auto) 19.0 % (0.0-4.0) H 01/02/18 12:21 Baso % (Auto) 1.2 % (0.0-2.0) 01/02/18 12:21 Neut # (Auto) 3.3 K/uL (1.8-7.0) 01/02/18 12:21 Lymph # (Auto) 0.6 K/uL (1.0-4.3) L 01/02/18 12:21 [place] # (Auto) 0.5 K/uL (0.0-0.8) 01/02/18 12:21 Eos # (Auto) 1.0 K/uL (0.0-0.7) H 01/02/18 12:21 Baso # (Auto) 0.1 K/uL (0.0-0.2) 01/02/18 12:21 PT 11.8 SECONDS (9.7-12.2) 12/29/17 21:48 INR 1.1 12/29/17 21:48 APTT 32 SECONDS (21-34) 12/29/17 21:48 Sodium 141 mmol/L (132-148) 01/02/18 12:21 Potassium 3.4 mmol/L (3.6-5.2) L 01/02/18 12:21 Chloride 99 mmol/L (98-107) 01/02/18 12:21 Carbon Dioxide 31 mmol/L (22-30) H 01/02/18 12:21 Anion Gap 14 (10-20) 01/02/18 12:21 BUN 30 mg/dL (9-20) H 01/02/18 12:21 Creatinine 4.0 mg/dL (0.8-1.5) H 01/02/18 12:21 Est GFR ( Amer) 18 01/02/18 12:21 Est GFR (Non-Af Amer) 15 01/02/18 12:21 Random Glucose 128 mg/dL (75-110) H 01/02/18 12:21 Calcium 8.6 mg/dl (8.6-10.4) 01/02/18 12:21 Phosphorus 2.1 mg/dL (2.5-4.5) L 01/02/18 12:21 Magnesium 2.1 mg/dL (1.6-2.3) 01/02/18 12:21 Total Bilirubin 0.5 mg/dL (0.2-1.3) 01/02/18 12:21 AST 31 U/L (17-59) 01/02/18 12:21 ALT 26 U/L (21-72) 01/02/18 12:21 Alkaline Phosphatase 67 U/L (38-126) 01/02/18 12:21 Total Creatine Kinase 91 U/L (55-170) 01/02/18 12:21 CK-MB (Mass) 2.31 ng/mL (0.0-3.38) 01/02/18 12:21 Troponin I 0.0540 ng/mL (0.00-0.120) 01/02/18 12:21 NT-Pro-B Natriuret Pep 5130 pg/mL (0-900) H 12/29/17 21:14 Total Protein 7.0 g/dL (6.3-8.3) 01/02/18 12:21 Albumin 3.9 g/dL (3.5-5.0) 01/02/18 12:21 Globulin 3.1 gm/dL (2.2-3.9) 01/02/18 12:21 Albumin/Globulin Ratio 1.2 (1.0-2.1) 01/02/18 12:21 Blood Type O POSITIVE 12/29/17 21:48 Antibody Screen Negative 12/29/17 21:48 - Hospital Course Hospital Course: Pt seen and examined, rapid a.fib resolved, pt was on cardizem, he is afebrile, wound culture positive for MSSA( methicilin sens staph aureus) s/p removal of fistula wound is clean, pt need keflex Discharge Exam - Head Exam Head Exam: ATRAUMATIC, NORMAL INSPECTION, NORMOCEPHALIC - Eye Exam Eye Exam: EOMI, Normal appearance, PERRL Pupil Exam: NORMAL ACCOMODATION, PERRL - ENT Exam ENT Exam: Mucous Membranes Moist - Respiratory Exam Respiratory Exam: Clear to PA & Lateral, NORMAL BREATHING PATTERN - Cardiovascular Exam Cardiovascular Exam: REGULAR RHYTHM, +S1, +S2 - GI/Abdominal Exam GI & Abdominal Exam: Normal Bowel Sounds - Rectal Exam Rectal Exam: Deferred Discharge Plan - Discharge Medications Prescriptions: diltiaZEM [Cardizem] 30 mg PO QID #120 tab Cefazolin Sodium in 0.9 % NaCl [Cefazolin 2 G/100 ml-0.9% NaCl] 2 gm IV TTS 14 Days plast..bag Amiodarone [Cordarone] 200 mg PO DAILY #30 tab Rosuvastatin Calcium [Crestor] 10 mg PO HS #30 tab Sevelamer Carbonate [Renvela] 800 mg PO TID #90 tab - Follow Up Plan Condition: GOOD Disposition: HOME/ ROUTINE Instructions: Cellulitis (Skin Infection), Adult (DC) Referrals: Preston Toth MD [Staff Provider] -
--- NOTE | 2018-01-03 16:03 | CP.PCM.PN ---
Subjective - Date & Time of Evaluation Date of Evaluation: 01/03/18 Time of Evaluation: 16:02 - Subjective Subjective: Patient is ambulating no chest pain no nausea no vomiting feeling much better. Objective - Vital Signs/Intake and Output Vital Signs (last 24 hours): Temp Pulse Resp BP Pulse Ox 98.0 F 74 20 137/74 98 01/03/18 09:00 01/03/18 09:00 01/03/18 09:00 01/03/18 09:00 01/03/18 09:00 - Labs Labs: 01/02/18 12:21 01/02/18 12:21 PT 11.8 SECONDS (9.7-12.2) 12/29/17 21:48 INR 1.1 12/29/17 21:48 APTT 32 SECONDS (21-34) 12/29/17 21:48 - Constitutional Appears: No Acute Distress - ENT Exam ENT Exam: Mucous Membranes Moist - Neck Exam Neck Exam: absent: Lymphadenopathy - Respiratory Exam Respiratory Exam: NORMAL BREATHING PATTERN. absent: Chest Wall Tenderness - Cardiovascular Exam Cardiovascular Exam: absent: Gallop, Irregular Rhythm, JVD, Rubs - GI/Abdominal Exam GI & Abdominal Exam: Soft, Normal Bowel Sounds - Back Exam Back Exam: absent: CVA tenderness (L), CVA tenderness (R) - Neurological Exam Neurological Exam: Alert - Psychiatric Exam Psychiatric exam: Normal Affect - Skin Skin Exam: absent: Cyanosis Assessment and Plan - Assessment and Plan (Free Text) Assessment: MSSA Infected AVG s/p excision HTN Hypertensive Chronic Kidney Disease (I12.0) End stage renal disease (N18.6) dependence on hemodialysis (Z99.2) (TTS) via AVG Anemia (D64.9), Hyperphosphatemia (E83.39), Secondary Hyperparathyroidism (E21.1 ), HTN (I12.0) Ex-smoker CHF, A. fib, history of DVT status post IVC filter, COPD, Mediastinal adenopathy Plan: HD today per TTS schedule as ordered Continue with Nephrovite 1 tab/day. no arron given hemoglobin 12.2 Continue with phos binders home dose, last phos 4.3 Bp stable and controlled dose abx for ESRD - vanc changed to ancef 2 gm tur/thur and 3 gram on saturdays and stopped zosyn patient is out of bed and ambulating
== END 2018-01-03 15:28 | disposition home or self-care (01) | DRG 314 ==
LOC: C.ER 20:14 → C.9E 21:02 → C.3T 22:27
PROVIDERS: ADMIT Internal Medicine; ATTEND Internal Medicine
PROC: 0XP70YZ Removal of Other Device from Left Upper Extremity, Open Approach (ICD-10-PCS; 2017-12-30)
PROC: 5A1D70Z Performance of Urinary Filtration, Intermittent, Less than 6 Hours Per Day (ICD-10-PCS; principal; 2017-12-30 09:00)
PROC: 5A1D70Z Performance of Urinary Filtration, Intermittent, Less than 6 Hours Per Day (ICD-10-PCS; 2018-01-02)
DX: T82.7XXA Infection and inflammatory reaction due to other cardiac and vascular devices, implants and grafts, initial encounter (principal); N18.6 End stage renal disease; L03.114 Cellulitis of left upper limb; I13.2 Hypertensive heart and chronic kidney disease with heart failure and with stage 5 chronic kidney disease, or end stage renal disease; I27.20 Pulmonary hypertension, unspecified; I48.91 Unspecified atrial fibrillation; J44.9 Chronic obstructive pulmonary disease, unspecified; E78.5 Hyperlipidemia, unspecified; D64.9 Anemia, unspecified; E83.39 Other disorders of phosphorus metabolism; I50.9 Heart failure, unspecified; Z87.891 Personal history of nicotine dependence; Z96.641 Presence of right artificial hip joint; Z99.2 Dependence on renal dialysis; B95.61 Methicillin susceptible Staphylococcus aureus infection as the cause of diseases classified elsewhere

== ENCOUNTER 2018-09-06 20:53 | Emergency (ER) | payer MEDICARE, BC | END 2018-09-06 23:56 | disposition left against medical advice (07) | DRG 291 | LOC: C.ER 20:53 → C.5S 22:24 | DX: I13.2 Hypertensive heart and chronic kidney disease with heart failure and with stage 5 chronic kidney disease, or end stage renal disease (principal); N18.6 End stage renal disease; I50.9 Heart failure, unspecified; I48.91 Unspecified atrial fibrillation; M10.9 Gout, unspecified ==

== ENCOUNTER 2018-11-05 03:58 | Inpatient (IN) | payer BC, MEDICARE | END 2018-11-10 17:53 | disposition left against medical advice (07) | DRG 291 | LOC: C.ER 03:58 → C.6T 05:33 | PROVIDERS: ADMIT Internal Medicine | PROC: 5A1D70Z Performance of Urinary Filtration, Intermittent, Less than 6 Hours Per Day (ICD-10-PCS; principal; 2018-11-06) | PROC: 5A1D70Z Performance of Urinary Filtration, Intermittent, Less than 6 Hours Per Day (ICD-10-PCS; 2018-11-08) ==

== ENCOUNTER 2018-11-11 14:38 | Inpatient (IN) | payer MEDICARE ==
[2018-11-11 14:39] VITALS: BMI 21.8
[2018-11-11] MEDS ORDERED: Sodium Chloride 0.9% 500 ML IV ONE (14:55)
[2018-11-11] MEDS ORDERED: Digoxin 500 mcg/2ml (0.5 mg/2ml) Inj IVP ONE (14:57)
[2018-11-11 15:03] LABS: BASO # 0.1 K/uL (0.0-0.2); BASO % 0.8 % (0.0-2.0); EOS # 0.7 K/uL (0.0-0.7); EOS % 5.5 % (0.0-4.0); HEMOGLOBIN 16.1 g/dL (12.0-18.0); LYMPH # 0.9 K/uL (1.0-4.3); LYMPH % 7.3 % (20.0-40.0); MEAN CELL VOLUME 87.5 fL (80.0-94.0); MEAN CORPUSCULAR HGB CONC 33.1 g/dL (33.0-37.0); MEAN PLATELET VOLUME 8.9 fL (7.2-11.7); MONO # 0.8 K/uL (0.0-0.8); MONO % 6.8 % (0.0-10.0); NEUT # 9.7 K/uL (1.8-7.0); NEUT % 79.6 % (50.0-75.0); PLATELET COUNT 149 K/uL (130-400); RBC 5.55 Mil/uL (4.40-5.90); RED CELL DISTRIBUTION WIDTH 13.9 % (11.5-14.5); WHITE BLOOD COUNT 12.2 K/uL (4.8-10.8)
[2018-11-11] MEDS ORDERED: Digoxin 500 mcg/2ml (0.5 mg/2ml) Inj ONE (15:14)
[2018-11-11 15:17] LABS: ALB/GLOB RATIO 1.3 (1.0-2.1); ALBUMIN 4.9 g/dL (3.5-5.0); CALCIUM 9.4 mg/dl (8.6-10.4)
[2018-11-11 15:26] LABS: CK-MB 8.87 ng/mL (0.0-3.38); TROPONIN I 0.095 ng/mL (0.00-0.120)
[2018-11-11 15:31] LABS: BANDS 2 % (0-2); EOSINOPHIL 5 % (0-4); LYMPHOCYTE 6 % (20-40); MONOCYTE 6 % (0-10); NEUTROPHIL 81 % (50-75); PLATELET ESTIMATE NORMAL (NORMAL); TOTAL CELLS COUNTED 100
[2018-11-11 15:32] LABS: ANISOCYTOSIS SLIGHT; LARGE PLATELETS PRESENT; TOXIC GRANULATION PRESENT
[2018-11-11 15:37] LABS: INR 1.1; PROTHROMBIN TIME 12.1 SECONDS (9.7-12.2)
[2018-11-11 15:38] VITALS: PULSE 140
--- NOTE | 2018-11-11 16:28 | RAD ---
Date of service: 11/11/2018 PROCEDURE: CHEST RADIOGRAPH, 1 VIEW HISTORY: SOB COMPARISON: Comparison is made with 11/05/2018 FINDINGS: LUNGS: Small opacities at the lung bases likely atelectasis. PLEURA: No pneumothorax or pleural fluid seen. CARDIOVASCULAR: No aortic atherosclerotic calcification present. Normal. OSSEOUS STRUCTURES: No significant abnormalities. VISUALIZED UPPER ABDOMEN: Normal. OTHER FINDINGS: None. IMPRESSION: Small opacities at the lung bases likely represent atelectasis.
[2018-11-11] MEDS ORDERED: Metoprolol 1 mg/ml Inj IVP STA (16:49)
[2018-11-11] MEDS ORDERED: Metoprolol 1 mg/ml Inj ONE (16:54)
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
[2018-11-11] MEDS: guaiFENesin 600 mg ER Tab PO SCH (23:11)
[2018-11-12 01:24] LABS: CK-MB 6.63 ng/mL (0.0-3.38); TROPONIN I 0.118 ng/mL (0.00-0.120)
[2018-11-12] MEDS: Albuterol-Ipratrop 3 mg / 0.5 (3 ml) UD INH SCH ×4 (07:58→19:37)
[2018-11-12 09:06] LABS: CK-MB 7.88 ng/mL (0.0-3.38); TROPONIN I 0.106 ng/mL (0.00-0.120)
[2018-11-12] MEDS: guaiFENesin 600 mg ER Tab PO SCH ×2 (09:53→17:33)
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
--- NOTE | 2018-11-12 21:52 | CARD ---
APPROVED REPORT Date of service: 11/11/2018 EKG Measurement Heart [id number] <Conclusion> Atrial flutter with variable AV block ST & T wave abnormality, consider lateral ischemia Abnormal ECG
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
[2018-11-13] MEDS: Albuterol-Ipratrop 3 mg / 0.5 (3 ml) UD INH SCH ×4 (01:07→19:35)
--- NOTE | 2018-11-13 04:32 | HP ---
CHIEF COMPLAINT: Dyspnea, chest pain, palpitation. HISTORY OF PRESENT ILLNESS: This is a 68-year-old male well known to me with history of end-stage renal disease, who is supposed to be on hemodialysis. He signed out against medical advise. He is waiting for an outpatient spot for hemodialysis and he is noncompliant with dialysis and he believes that his palpitation and rapid atrial flutter and fibrillation is as a result of hemodialysis. His etiology of renal failure is unknown. He has history of congestive heart failure, hypertension, hyperlipidemia, bronchial asthma and he has history of anemia. The patient has history of atrial fibrillation and flutter. He was brought by ambulance from home after he signed out on Monday and the patient was brought back because at home he was having chest pain and palpitation that began prior to the arrival of ambulance at his home. The patient was found to be in rapid a-fib and he was complaining of dyspnea at rest. He denied any history of chest pain. At the moment EMS was there, he denied any history of cough, fever, diarrhea, abdominal pain. He had no history of polyuria, polydipsia, polyphagia. He has generalized weakness, dizziness. He denies any history of rectal bleeding, hematemesis, melena, hematochezia. He denies any history of joint pain, hip pain. He had dyspnea at rest and dyspnea on exertion. He denied any history of orthopnea, PND. He had nocturia. He had no history of sneezing, itchy eyes, itchy nose. He denies any history of trauma, fall, or loss of consciousness. He denies any history of tingling, numbness, paresthesia. CURRENT HOME MEDICATION: Noted. Diovan 30 mg four times a day, Renvela, Lopressor, aspirin, and Cordarone. SOCIAL HISTORY: He is a nonsmoker, nonETOH user. PAST MEDICAL HISTORY: CKD, hypertension, atrial fibrillation, flutter, COPD. ALLERGIES: MORPHINE, HYDROMORPHONE. PHYSICAL EXAMINATION: GENERAL: An elderly male, in minimal distress. VITAL SIGNS: Blood pressure 114/54, pulse 52, respiratory rate 20, temperature 97.7. SKIN: There is no bruises, no purpura, no petechiae. No ecchymosis. HEENT: Atraumatic, normocephalic. Negative pallor. Negative jaundice. Extraocular movements are intact. NECK: Supple. Positive JVD. Negative thyromegaly. No carotid bruit. CHEST WALL: Bilateral symmetrical expansion. LUNGS: Bilateral basal crepitations. Positive rhonchi. CARDIOVASCULAR SYSTEM: S1 and S2 plus S3, irregularly irregular. No heave. No thrill. No murmur. ABDOMEN: Soft, nontender. Bowel sound are positive. EXTREMITIES: No clubbing, cyanosis, edema. RECTAL: Enlarged prostate. CENTRAL NERVOUS SYSTEMS: Awake, alert, and oriented x3. Cranial nerves II through XII are normal. ASSESSMENT: 1. Acute congestive heart failure due to fluid overload due to chronic kidney disease. 2. Atrial fibrillation/flutter. The patient is in rapid atrial fibrillation and the heart rate responded with metoprolol. 3. Hypertension. 4. Hyperlipidemia. PLAN: Admit. Detailed orders are written. Seen and examined. Preston Toth MD
[2018-11-13 08:15] LABS: CALCIUM 8.8 mg/dl (8.6-10.4)
[2018-11-13] MEDS: guaiFENesin 600 mg ER Tab PO SCH ×2 (09:21→17:31)
--- NOTE | 2018-11-13 12:16 | PCM.PSYCH ---
Initial Psychiatric Evaluation - Initial Psychiatric Evaluation Type of Admission: Voluntary Legal Status: Capacity Chief Complaint (in patient's own words): "I'm fine" History of Present Illness and Precipitating Events: The pt is seen, chart reviewed and case discussed. Consult was request for his refusal to get dialysis despite ongoing ESRD. He has extensive chronic medical conditions and was recently signed out AMA 2 days ago on 11/11/18. He had to come in for Afib, CHF, renal failure, and chest pain. He has a history of noncompliance to diet, medication, and follow/up. Pt is a 68 y/o male single, with 4 adult children, retired, and lives alone with no psychiatric history. He came in on 11/13/18 for chest pain, dry cough, and copious phlegm production. Pt insists he doesnt need dialysis because his kidneys were fine without dialysis for a while. He believes that his palpitations and heart issues are due to dialysis. He also thinks his dr OK'ed not being on dialysis for a while and that he was OK as per some lab tests at [facility] recently. He denies depression, anxiety, or suicidal thoughts or intent. Tapper [employer] spoke with his stepson, Rohit Johnson, who says pt is able to take care of himself at home and does not have any psychiatric conditions. He believes pt needs steep tender because pt may not understand what is being explained to him. He expressed frustration that all the medical doctors seeing his father have their own opinions and he isnt sure what to believe. He attributes pt's having been taken off dialysis for a while as the reason why the pt is so insistent that he doesnt need dialysis, because pt went without it for 11 months and he felt normal. He also believes his father cannot tolerate dialysis easily because of palpitations and that they had to adjust the flow. However, he will attempt to convince his father that he needs to consent for dialysis. No trauma hx. No tobacco, alcohol, or drug use. He failed to recall 3 words after 1 minute. 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 Past psych hx: denies PMHx: Atrial fibrillation, CHF, HTN, CKD, DVT, anemia, and R hip fracture Fam psych hx: unknown All: morphine, hydromorphone Current Medications: Active Medications Generic Name Dose Route Start Last Admin Trade Name Luis Manuel PRN Reason Stop Dose Admin Albuterol/Ipratropium 3 ml 11/12/18 02:00 11/13/18 01:07 Duoneb 3 Mg/0.5 Mg (3 Ml) Ud INH Not Given RQ6 [facility] Amiodarone HCl 200 mg 11/12/18 10:00 11/13/18 09:21 Cordarone PO 200 mg DAILY [facility] Administration Apixaban 2.5 mg 11/12/18 10:00 11/13/18 09:21 Eliquis PO 2.5 mg BID [facility] Administration Aspirin 81 mg 11/12/18 10:00 11/13/18 09:21 Ecotrin PO 81 mg DAILY [facility] Administration Calcitriol 0.25 mcg 11/13/18 10:00 11/13/18 09:21 Rocaltrol PO 0.25 mcg DAILY [facility] Administration Furosemide 60 mg 11/12/18 23:45 11/13/18 09:22 Lasix IVP 60 mg Q12 [facility] Administration Guaifenesin 600 mg 11/11/18 22:30 11/13/18 09:21 Mucinex La PO 600 mg BID [facility] Administration Metoprolol Tartrate 25 mg 11/11/18 22:30 11/13/18 09:23 Lopressor PO Not Given BID [facility] Sevelamer Carbonate 800 mg 11/12/18 08:00 11/13/18 09:00 Renvela PO 800 mg TIDCC [facility] Administration Past Psychiatric History - Past Psychiatric History Previous Treatment History: None Pertinent Medical Hx (Current Medical&Sleep Prob, Allergies): Allergies Allergy/AdvReac Type Severity Reaction Status Date / Time morphine Allergy Severe "PROBLEM Verified 11/11/18 14:45 WITH MY KIDNEY" hydromorphone AdvReac RASH, Verified 11/11/18 14:45 HIVES ABOVE IV SITE Aspirin [Ecotrin] 81 mg PO DAILY #30 tabec 10/11/17 Amiodarone [Cordarone] 200 mg PO DAILY #30 tab 01/03/18 Sevelamer Carbonate [Renvela] 800 mg PO TID #90 tab 01/03/18 diltiaZEM [Cardizem] 30 mg PO QID #120 tab 01/03/18 Lopressor 25 mg PO DAILY 09/06/18 Review of Systems - Neurological Neurological: Memory Loss - Psychiatric Psychiatric: Abnormal Sleep Pattern, Anxiety, Difficulty Concentrating, Memory Loss. absent: Depression, Hallucinations, Homicidal Ideation, Suicidal Ideation Mental Status Examination - Personal Presentation Personal Presentation: Looks stated age - Affect Affect: Broad - Motor Activity Motor Activity: Calm - Reliability in Providing Information Reliability in Providing Information: Good - Speech Speech: Organized - Mood Mood: Anxious - Formal Thought Process Formal Thought Process: No Impairment - Cognitive Functions Orientation: Person, Place, Time Sensorium: Alert Attention/Concentration: Easily distracted Abstract Thinking: [place] Estimate of Intelligence: Average Judgement: Imparied, as evidence by: Poor judgement Memory: Recent imparied as evidence by:Inability to complete 3/3 object recall, Remote intact, as evidenced by: Abilit to recall sig. life events - Risk Risk: Diminished functioning - Strength & Assets Inventory Strength & Assets Inventory: Family support, Cooperative DSM 5 DX - DSM 5 DSM 5 Diagnosis: Adjustment disorder with anxiety Mild cognitive impairment, likely age and medical-conditions related - Recommended/Plan of Treatment Treatment Recommendations and Plan of Treatment: No need for psych meds Support and psychoed Pt has the capacity to make decisions He and his son can be persuaded to accept the HD once the rationale and risks are explained by the providers. They seem to be confused by mixed messages (or perceived mixed messages) re his need for dialysis. Psych will sign off 35 min
--- NOTE | 2018-11-13 12:32 | CP.PCM.PN ---
Subjective - Date & Time of Evaluation Date of Evaluation: 11/13/18 Time of Evaluation: 12:31 - Subjective Subjective: Nephrology Consultation Note: Assessment: critical A fib with RVR, chest pain Hypertensive Chronic Kidney Disease (I12.0) ESRD started HD 11/05/18 via AVF Hyperphosphatemia (E83.39), Secondary Hyperparathyroidism (E21.1), HTN (I12.0) Ex-smoker A. fib, history of DVT status post IVC filter, COPD, Mediastinal adenopathy Plan: Pt continue to refuse dialysis. consulted psychiatry. consider palliative care if pt continue to refuse dialysis. PRBC as needed for anemia. Not on LACIE as, last Hb >10. Continue with phos binders home dose, last phos level 3.3 Continue with calcitriol, PTH 600 BP control with meds as ordered. Patient not on RAAS cecelia as BP low side Glycemic control, Dialysis consistent diet Dose meds/antibiotics (if needed) for ESRD status. Avoid fleets enema/magnesium based laxatives. Thanks for allowing me to participate in care of your patient. Will follow patient with you. Please call if any Qs. had d/w team Dr Dilip Ernandez Office: [phone] Chief Complaint; chest pain, palpitations Reason for consult; ESRD management HPI: Pt is a 68 M with hx of advanced CKD with ESRD on hemodialysis until summer when his kidney function improved and pt stopped dialysis and was f/up in office with CKD 4. He also has hyperphosphatemia, secondary hyperparathyroidism, hypertension, Ex-smoker, hx of, A. fib, history of DVT status post IVC filter, COPD, Mediastinal adenopathy. pt has been to [facility] [place] [place] times recently with similar complaints. He was admitted to [facility] with CP/angina, COPD exacerbation, A fib with RVR and advanced CKD required dialysis initiation. he signed our AMA from hospital 11/11/18. He presented back here with complaints of Chest pain and palpitations. Renal consult for ESRD management. his last dialysis was . no urine complaints. his CP and palpitations better ROS: refusing HD Cardiovascular: denies chest pain. Pulmonary: improved shortness of breath . has cough but better Gastrointestinal: denies abdominal pain No nausea. No vomiting. c/o hert burn Genitourinary: No pain while urinating. Denies blood in urine. All other negative except as mentioned in HPI Physical Examination: General Appearance: comfortable, co-operative . no acute distress Vitals reviewed and noted as below Head; Atraumatic, normocephalic ENT: no ulcers no thrush. Tongue is midline. Oropharynx: no rash or ulcers. EYES: Pupils are equal, round and reactive to light accommodation. Eye muscles and extraocular movement intact. Sclera is anicteric. Neck; supple no lymphadenopathy, no thyromegaly or bruit Lungs: Improved respiratory rate/effort. Breath sounds bilateral clearer Heart: Normal rate. s1s2 normal. No rub or gallop. Extremities: no edema. No varicose veins Neurological: Patient is alert, awake and oriented to person, place and time. No focal deficit. Strength bilateral appropriate and equal Skin: Warm and dry. Normal turgor. No rash. Palpitation: Normal elasticity for age Abdomen: Abdomen is soft. Bowel sounds +. There is no abdominal tenderness, no guarding/rigidity or organomegaly Psych: limited insight and normal affect/mood MSK: no joint tenderness or swelling. Digits and nails normal, no deformity : kidney or bladder not palpable Access: Left AV graft with thrill and bruit. Labs/imaging reviewed. Past medical history, past surgical history, family history, social history, allergy reviewed and noted as below Family Hx: no hx of CKD. Non contributory Objective - Vital Signs/Intake and Output Vital Signs (last 24 hours): Temp Pulse Resp BP Pulse Ox 97.8 F 57 L 18 146/73 96 11/13/18 08:21 11/13/18 09:20 11/13/18 08:21 11/13/18 09:23 11/13/18 08:21 Intake and Output: 11/13/18 11/13/18 06:59 18:59 Intake Total 400 Output Total 1650 Balance -1250 - Medications Medications: Current Medications Albuterol/Ipratropium (Duoneb 3 Mg/0.5 Mg (3 Ml) Ud) 3 ml INH RQ6 [facility] Last Admin: 11/13/18 01:07 Dose: Not Given Amiodarone HCl (Cordarone) 200 mg PO DAILY [facility] Last Admin: 11/13/18 09:21 Dose: 200 mg Apixaban (Eliquis) 2.5 mg PO BID [facility] Last Admin: 11/13/18 09:21 Dose: 2.5 mg Aspirin (Ecotrin) 81 mg PO DAILY [facility] Last Admin: 11/13/18 09:21 Dose: 81 mg Calcitriol (Rocaltrol) 0.25 mcg PO DAILY [facility] Last Admin: 11/13/18 09:21 Dose: 0.25 mcg Furosemide (Lasix) 60 mg IVP Q12 [facility] Last Admin: 11/13/18 09:22 Dose: 60 mg Guaifenesin (Mucinex La) 600 mg PO BID [facility] Last Admin: 11/13/18 09:21 Dose: 600 mg Metoprolol Tartrate (Lopressor) 25 mg PO BID [facility] Last Admin: 11/13/18 09:23 Dose: Not Given Sevelamer Carbonate (Renvela) 800 mg PO TIDCC [facility] Last Admin: 11/13/18 09:00 Dose: 800 mg - Labs Labs: 11/11/18 14:58 11/13/18 07:52 PT 12.1 SECONDS (9.7-12.2) 11/11/18 14:58 INR 1.1 11/11/18 14:58 APTT 35.0 SECONDS (21-34) H 11/11/18 14:58
[2018-11-13 16:05] VITALS: RESP 20
--- NOTE | 2018-11-13 19:46 | CP.PCM.PN ---
Subjective - Date & Time of Evaluation Date of Evaluation: 11/13/18 Time of Evaluation: 07:40 - Subjective Subjective: dict Objective - Vital Signs/Intake and Output Vital Signs (last 24 hours): Temp Pulse Resp BP Pulse Ox 97.9 F 71 20 148/55 L 98 11/13/18 15:00 11/13/18 18:00 11/13/18 15:00 11/13/18 15:00 11/13/18 15:00 - Medications Medications: Current Medications Albuterol/Ipratropium (Duoneb 3 Mg/0.5 Mg (3 Ml) Ud) 3 ml INH RQ6 [facility] Last Admin: 11/13/18 19:35 Dose: 3 ml Amiodarone HCl (Cordarone) 200 mg PO DAILY [facility] Last Admin: 11/13/18 09:21 Dose: 200 mg Apixaban (Eliquis) 2.5 mg PO BID [facility] Last Admin: 11/13/18 17:31 Dose: 2.5 mg Aspirin (Ecotrin) 81 mg PO DAILY [facility] Last Admin: 11/13/18 09:21 Dose: 81 mg Calcitriol (Rocaltrol) 0.25 mcg PO DAILY [facility] Last Admin: 11/13/18 09:21 Dose: 0.25 mcg Furosemide (Lasix) 60 mg IVP Q12 [facility] Last Admin: 11/13/18 09:22 Dose: 60 mg Guaifenesin (Mucinex La) 600 mg PO BID [facility] Last Admin: 11/13/18 17:31 Dose: 600 mg Metoprolol Tartrate (Lopressor) 25 mg PO BID [facility] Last Admin: 11/13/18 19:08 Dose: Not Given Sevelamer Carbonate (Renvela) 800 mg PO TIDCC [facility] Last Admin: 11/13/18 17:31 Dose: 800 mg - Labs Labs: 11/11/18 14:58 11/13/18 07:52 PT 12.1 SECONDS (9.7-12.2) 11/11/18 14:58 INR 1.1 11/11/18 14:58 APTT 35.0 SECONDS (21-34) H 11/11/18 14:58
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
[2018-11-14] MEDS: Albuterol-Ipratrop 3 mg / 0.5 (3 ml) UD INH SCH (01:17)
--- NOTE | 2018-11-14 03:43 | PN ---
DATE: 11/13/2018 SUBJECTIVE: The patient is refusing hemodialysis. The patient has been evaluated by Psychiatry. The patient has been evaluated by me. We had extensive discussion with the patient and his son. The patient believes that all his cardiac arrhythmia, weakness and dizziness are due to dialysis and he refuses. There is no shortness of breath. He is on diuretics. He is making good urine output. No nausea or vomiting. PHYSICAL EXAMINATION: VITAL SIGNS: Blood pressure 134/71, pulse 90, respiratory rate 20, temperature 98. LUNGS: Bilateral basal crepitations. Decreased air entry. CARDIOVASCULAR SYSTEM: S1 and S2, regular. ABDOMEN: Soft and nontender. Bowel sounds are positive. ASSESSMENT: 1. Chronic kidney disease and fluid overload, on Lasix. The patient is responding to Lasix. 2. Hypertension. 3. Atrial fibrillation/flutter, on metoprolol. The patient is responding well. PLAN: Continue current medications. Hold dialysis. Palliative care consult. Preston Toth MD
[2018-11-14 07:58] VITALS: PULSE 54; TEMP 97.3; O2SAT 99
[2018-11-14] MEDS: guaiFENesin 600 mg ER Tab PO SCH (10:25)
--- NOTE | 2018-11-14 10:26 | PCM.PCON ---
History of Present Illness - History of Present Illness History of Present Illness: Palliative consult requested by Sariah LIM for goals of care discussion Patient is a 68 yo male admitted with rapid A Fib, chest pain and shortness of breath. Patient denied fever, cough, abdominal pain.Prior to this admission patient was treated at [facility] for similar symptoms and discharged home just 2 days prior to this admission. Patient has not been compliant with HD which begun 2015. Patient took a pause from HD for almost 11 months. He believes his cardiac condition results from HD. Patient reports feeling very weak post HD in the past and once seeing " only black". Last HD was 11/05/18. On this admission CXR suggestive of atelectasis. Psych eval found patient capable of making decisions. Renal consult with Doctor Ernandez and further HD was suggested, all risks from not having it explained, including . WBC 12.2, Hb 16.1, BUN 98, Roller Printer. 4.8,BNP 7840 PMH: Afib, on Eliquis, CHF, HTN, DVT, AVC filter, anemia, ESRD on HD Soc. Hx: single, Son Rohit involved in care, retired, lives at [employer] [facility]. Hx: denied Review of Systems - Constitutional Constitutional: absent: As Per HPI, Anorexia, Chills, Daytime Sleepiness, Excessive Sweating, Fatigue, Fever, Frequent Falls, Headache, Increased Appetite, Lethargy, Malaise, Night Sweats, Snoring, Sleep Apnea, Weight Gain, Weight Loss, Weakness, Other - EENT Eyes: absent: As Per HPI, Blind Spots, Blurred Vision, Change in Vision, Decreased Night Vision, Diplopia, Discharge, Dry Eye, Exophthalmos, Floaters, Irritation, Itchy Eyes, Loss of Peripheral Vision, Pain, Photophobia, Requires Corrective Lenses, Sees Flashes, Spots in Vision, Tunnel Vision, Other Visual Disturbances, Loss of Vision, Other Ears: absent: As Per HPI, Decreased Hearing, Ear Discharge, Ear Pain, Tinnitus, Abnormal Hearing, Disequilibrium, Dizziness, Other Nose/Mouth/Throat: absent: As Per HPI, Epistaxis, Nasal Congestion, Nasal Discharge, Nasal Obstruction, Nasal Trauma, Nose Pain, Post Nasal Drip, Sinus Pain, Sinus Pressure, Bleeding Gums, Change in Voice, Dental Pain, Dry Mouth, Dysphagia, Halitosis, Hoarsness, Lip Swelling, Mouth Lesions, Mouth Pain, Odynophagia, Sore Throat, Throat Swelling, Tongue Swelling, Facial Pain, Neck Pain, Neck Mass, Other - Cardiovascular Cardiovascular: absent: As Per HPI, Acrocyanosis, Chest Pain, Chest Pain at Rest, Chest Pain with Activity, Claudication, Diaphoresis, Dyspnea, Dyspnea on Exertion, Edema, Irregular Heart Rhythm, Pain Radiating to Arm/Neck/Jaw, Leg Edema, Leg Ulcers, Lightheadedness, Orthopnea, Palpitations, Paroxysmal Nocturnal Dyspnea, Pedal Edema, Radiating Pain, Rapid Heart Rate, Slow Heart Rate, Syncope, Other - Respiratory Respiratory: absent: As Per HPI, Cough, Dyspnea, Hemoptysis, Dyspnea on Exertion, Wheezing, Snoring, Stridor, Pain on Inspiration, Chest Congestion, Excessive Mucous Production, Change in Mucous Color, Pain with Coughing, Other - Gastrointestinal Gastrointestinal: absent: As Per HPI, Abdominal Pain, Belching, Bloating, Change in Bowel Habits, Change in Stool Character, Coffee Ground Emesis, Constipation, Cramping, Diarrhea, Dyspepsia, Dysphagia, Early Satiety, Excessive Flatus, Fecal Incontinence, Heartburn, Hematemesis, Hematochezia, Loose Stools, Melena, Nausea, Odynophagia, Temesmus, Vomiting, Other - Genitourinary Genitourinary: absent: As Per HPI, Change in Urinary Stream, Difficulty Urinating, Dysuria, Flank Pain, Hematuria, Pyuria, Nocturia, Urinary Incontinence, Urinary Frequency, Urinary Hesitance, Urinary Urgency, Voiding Freq/Small Amts, Freq UTI, Hx Renal/Bladder Calculi, Hx /Renal Surgery, Bladder Distension, Other - Musculoskeletal Musculoskeletal: absent: As Per HPI, Abnormal Gait, Arthralgias, Atrophy, Back Pain, Deformity, Joint Swelling, Limited Range of Motion, Loss of Height, Muscle Cramps, Muscle Weakness, Myalgias, Neck Pain, Numbness, Radiating Pain into Limb, Stiffness, Tingling, Other - Integumentary Integumentary: absent: As Per HPI, Acne, Alopecia, Bleeding Lesions, Change in Hair, Change in Nails, Change in Pigmentation, Changing Lesions, Dry Skin, Erythema, Furuncle, Hirsutism, Lesions, New Lesions, Non-Healing Lesions, Photosensitivity, Pruritus, Rash, Skin Pain, Skin Ulcer, Sores, Striae, Swelling, Unusual Bruising, Wounds, Jaundice, Other - Neurological Neurological: absent: As Per HPI, Abnormal Gait, Abnormal Hearing, Abnormal Movements, Abnormal Speech, Behavioral Changes, Burning Sensations, Confusion, Convulsions, Disequilibrium, Dizziness, Numbness, Focal Weakness, Frequent Falls, Headaches, Lack of Coordination, Loss of Vision, Memory Loss, Paresthesias, Radicular Pain, Restless Legs, Sensory Deficit, Syncope, Tingling, Tremor, Vertigo, Weakness, Other Visual Disturbances, Other - Psychiatric Psychiatric: absent: As Per HPI, Abnormal Sleep Pattern, Anhedonia, Anxiety, Auditory Hallucinations, Behavioral Changes, Change in Appetite, Change in Libido, Confusion, Depression, Difficulty Concentrating, Hallucinations, Homicidal Ideation, Hopelessness, Irritability, Memory Loss, Mood Swings, Panic Attacks, Paranoia, Suicidal Ideation, Visual Hallucinations, Tactile Hallucinations, Other - Endocrine Endocrine: absent: As Per HPI, Change in Body Appearance, Change in Libido, Cold Intolorance, Deepening of Voice, Excessive Sweating, Fatigue, Flushing, Heat Intolorance, Increase in Ring/Shoe/Hat Size, Palpitations, Polydipsia, Polyphagia, Polyuria, Other - Hematologic/Lymphatic Hematologic: Easy Bleeding Physical Exam - Constitutional Appears: No Acute Distress, Chronically Ill - Head Exam Head Exam: NORMAL INSPECTION, NORMOCEPHALIC - Eye Exam Eye Exam: EOMI, Normal appearance, PERRL Pupil Exam: NORMAL ACCOMODATION, PERRL - ENT Exam ENT Exam: Mucous Membranes Moist, Normal Exam - Neck Exam Neck exam: Positive for: Normal Inspection - Respiratory Exam Respiratory Exam: Decreased Breath Sounds, NORMAL BREATHING PATTERN Additional comments: bed nails cyanosis, O2Sat 99% - Cardiovascular Exam Cardiovascular Exam: Tachycardia, Irregular Rhythm - GI/Abdominal Exam GI & Abdominal Exam: Normal Bowel Sounds, Soft - Rectal Exam Rectal Exam: Deferred - Exam Exam: NORMAL INSPECTION Additional comments: Urinates freely, urine output 1650 cc, BUN 98, Roller Printer 4.8 - Extremities Exam Extremities exam: Positive for: normal inspection - Back Exam Back exam: NORMAL INSPECTION - Neurological Exam Neurological exam: Alert, Oriented x3 - Psychiatric Exam Psychiatric exam: Normal Affect, Normal Mood - Skin Skin Exam: Dry, Intact, Petechiae Palliative Care Assessment - Modified MRC Dyspnea Scale Modified MRC Dyspnea Scale: Short of Breath when hurrying or walking up a slight hill Grade: 2 - Pain Scale Pain Score: 0 Pain Scale Used: Numeric - Pain Description Intensity of pain at present: 0 Acceptable Level of Pain: NA Radiation Location: NA Variations/Patterns: NA Site Observation: NA Duration: NA - Joshua Scale Sensory Perception: No Impairment Moisture: Rarely Moist Activity: Walks Frequently Mobility: No Limitations Nutrition: Probably Inadequate Friction & Shear: No Apparent Problem Total Score - Skin Risk Assessment: 21 - Psychosocial Distress Patient screened for psychosocial distress: Yes Psychosocial Intervention(s): Patient concerned with his condition and believes was not treated properly. Patient is anxious to leave hospital. he considers different hospital for 2nd opinion regarding HD. I spoke to patient and his son Rohit. They both share concerns regarding HD. Patient feels HD makes him feel sick. I promissed to talk to Doctor Awais that go back to them and discussed it all over again. They stated being satisfied. Outcome: Resolved Palliative Care - Goals Treatment Goal(s): Alleviate symptoms, Improve ADLs, Improve quality of life End of life care discussed: Yes End of life discussion: Code status discussed in the light of very complex Medical Hx> Patient was clear he would like to peaceful when his time comes, but was not sure to sign DNR/DNI just yet. Patient wants his son Rohit Johnson [phone] to be called in case he loses decision making capacity. HD discussed. Patient is very adamant in his decision. He feels HD makes him more sick. patient reports very strong side effects of dialysis, making his heart to palpate and he believes it gave him a heart attack at one point. Patient lost weight between the last three admissions and is afraid that his condition " may be mismanaged". Patient wishes to leave and fallow up as on outpatient, seeking 2nd opinion. Patient understands that may be result of his condition if he refuses HD. he stated understanding. I discussed all of these with his son Rohit. Rohit is very concerned with his father;s health, but supports his decision against HD. He also wishes for 2nd opinion. - Plan Interdisciplinary involved: Nurse, Physician Discharge planning: Home (Patient prefers to be discharged home and continue HD as an outpatient if he needed to.) Assessment & Plan - Assessment and Plan (Free Text) Assessment: Assessment * Chronically ill male with mild SOB 2nd to CHF * Lab study suggests elevated kidney functions and HD is suggested as per renal consult * Patient feels that it is too hard for him to sustain another HD * Patient's son supports patient's feelings * Patient and his son would like to seek 2nd opinion regarding HD * Patient and his son experience this hospital stay as a stressful event and wish to return home * Patient wishes peaceful for him self when his time comes , but not ready to sign DNR/DNI just yet * Patient wishes his son Rohit Johnson was called as a call or contact centre operator in case of emergency [phone] Suggestion * Continue management of kidney functions with PO agents as per renal consult * Discharge home planing with prescriptions for needed meds * Fallow up with Renal as outpatient * Son Rohit, emergency call or contact centre operator I will return to patient one more time and re visit HD issues. However, patient's feeling against HD are very strong. He is just afraid to take it as HD gives him numerous side effects. Advance care planing 55 min.
[2018-11-14 10:27] VITALS: BP 166/80
--- NOTE | 2018-11-14 12:42 | CP.PCM.PN ---
Subjective - Date & Time of Evaluation Date of Evaluation: 11/14/18 Time of Evaluation: 12:41 - Subjective Subjective: Nephrology Consultation Note: Assessment: stable A fib with RVR, chest pain Hypertensive Chronic Kidney Disease (I12.0) ESRD started HD 11/05/18 via [facility] Hyperphosphatemia (E83.39), Secondary Hyperparathyroidism (E21.1), HTN (I12.0) Ex-smoker A. fib, history of DVT status post IVC filter, COPD, Mediastinal adenopathy Plan: Pt continue to refuse dialysis. consulted psychiatry. appreciate palliative care. PRBC as needed for anemia. Not on LACIE as, last Hb >10. Continue with phos binders home dose, last phos level 3.3 Continue with calcitriol, PTH 600 BP control with meds as ordered. Patient not on RAAS cecelia as BP low side Glycemic control, Dialysis consistent diet Dose meds/antibiotics (if needed) for ESRD status. Avoid fleets enema/magnesium based laxatives. Thanks for allowing me to participate in care of your patient. Will follow patient with you. Please call if any Qs. had d/w team Dr Dilip Ernandez Office: [phone] Chief Complaint; chest pain, palpitations Reason for consult; ESRD management HPI: Pt is a 68 M with hx of advanced CKD with ESRD on hemodialysis until summer when his kidney function improved and pt stopped dialysis and was f/up in office with CKD 4. He also has hyperphosphatemia, secondary hyperparathyroidism, hypertension, Ex-smoker, hx of, A. fib, history of DVT status post IVC filter, COPD, Mediastinal adenopathy. pt has been to [facility] few times recently with similar complaints. He was admitted to [facility] with CP/angina, COPD exacerbation, A fib with RVR and advanced CKD required dialysis initiation. he signed our AMA from hospital 11/11/18. He presented back here with complaints of Chest pain and palpitations. Renal consult for ESRD management. his last dialysis was . no urine complaints. his CP and palpitations better ROS: refusing HD Cardiovascular: denies chest pain. Pulmonary: improved shortness of breath . has cough but better Gastrointestinal: denies abdominal pain No nausea. No vomiting. Genitourinary: No pain while urinating. Denies blood in urine. All other negative except as mentioned in HPI Physical Examination: General Appearance: comfortable, co-operative . no acute distress Vitals reviewed and noted as below Head; Atraumatic, normocephalic ENT: no ulcers no thrush. Tongue is midline. Oropharynx: no rash or ulcers. EYES: Pupils are equal, round and reactive to light accommodation. Eye muscles a nd extraocular movement intact. Sclera is anicteric. Neck; supple no lymphadenopathy, no thyromegaly or bruit Lungs: Improved respiratory rate/effort. Breath sounds bilateral clearer Heart: Normal rate. s1s2 normal. No rub or gallop. Extremities: no edema. No varicose veins Neurological: Patient is alert, awake and oriented to person, place and time. No focal deficit. Strength bilateral appropriate and equal Skin: Warm and dry. Normal turgor. No rash. Palpitation: Normal elasticity for age Abdomen: Abdomen is soft. Bowel sounds +. There is no abdominal tenderness, no guarding/rigidity or organomegaly Psych: limited insight and normal affect/mood MSK: no joint tenderness or swelling. Digits and nails normal, no deformity : kidney or bladder not palpable Access: Left AV graft with thrill and bruit. Labs/imaging reviewed. Past medical history, past surgical history, family history, social history, allergy reviewed and noted as below Family Hx: no hx of CKD. Non contributory Objective - Vital Signs/Intake and Output Vital Signs (last 24 hours): Temp Pulse Resp BP Pulse Ox 97.3 F L 54 L 20 166/80 H 99 11/14/18 07:00 11/14/18 07:50 11/14/18 07:00 11/14/18 10:24 11/14/18 07:00 Intake and Output: 11/14/18 11/14/18 06:59 18:59 Intake Total 360 Output Total 600 Balance -240 - Labs Labs: 11/11/18 14:58 11/13/18 07:52 PT 12.1 SECONDS (9.7-12.2) 11/11/18 14:58 INR 1.1 11/11/18 14:58 APTT 35.0 SECONDS (21-34) H 11/11/18 14:58
--- NOTE | 2018-11-14 17:27 | CP.PCM.DIS ---
Provider - Provider Date of Admission: 11/11/18 17:42 Attending physician: Preston Toth MD Consults: 11/11/18 17:43 Physician Consult Routine Comment: ACUTE ON CHRONIC RENAL FAILURE Consulting Provider: Dilip Ernandez Consulting Physician: Dilip Ernandez Reason for Consult: NEPRHOLOGY Physician Consult Routine Comment: RAPID ATRIAL FLUTTER Consulting Provider: Theo Anderson Consulting Physician: Theo Anderson Reason for Consult: CARDIO 11/11/18 19:56 Cardiology Consult Routine Comment: please notify attending Consulting Provider: Matt Amos Consulting Physician: Matt Amos Reason for Consult: A Flutter 11/11/18 22:19 Cardiology Consult Routine Comment: Consulting Provider: Theo Anderson Consulting Physician: Theo Anderson Reason for Consult: a.fib 11/11/18 22:20 Nephrology Consult Routine Comment: Consulting Provider: Dilip Ernandez Consulting Physician: Dilip Ernandez Reason for Consult: ckd 11/12/18 14:53 Physician Consult Routine Comment: Consulting Provider: Dolly Bhagat Consulting Physician: Dolly Bhagat Reason for Consult: pt refusing dialysis. please eval for decisional capacity 11/13/18 16:09 Palliative Care Consult Routine Comment: Consulting Provider: Hope Zaidi Physician Instructions: pt refusing HD Reason For Exam: goal of care Time Spent in preparation of Discharge (in minutes): 30 Hospital Course - Lab Results Lab Results: Most Recent Lab Values WBC 12.2 K/uL (4.8-10.8) H D 11/11/18 14:58 RBC 5.55 Mil/uL (4.40-5.90) 11/11/18 14:58 Hgb 16.1 g/dL (12.0-18.0) 11/11/18 14:58 Hct 48.6 % (35.0-51.0) 11/11/18 14:58 MCV 87.5 fL (80.0-94.0) 11/11/18 14:58 MCH 29.0 pg (27.0-31.0) 11/11/18 14:58 MCHC 33.1 g/dL (33.0-37.0) 11/11/18 14:58 RDW 13.9 % (11.5-14.5) 11/11/18 14:58 Plt Count 149 K/uL (130-400) 11/11/18 14:58 MPV 8.9 fL (7.2-11.7) 11/11/18 14:58 Neut % (Auto) 79.6 % (50.0-75.0) H 11/11/18 14:58 Lymph % (Auto) 7.3 % (20.0-40.0) L 11/11/18 14:58 Sandoval % (Auto) 6.8 % (0.0-10.0) 11/11/18 14:58 Eos % (Auto) 5.5 % (0.0-4.0) H 11/11/18 14:58 Baso % (Auto) 0.8 % (0.0-2.0) 11/11/18 14:58 Neut # (Auto) 9.7 K/uL (1.8-7.0) H 11/11/18 14:58 Lymph # (Auto) 0.9 K/uL (1.0-4.3) L 11/11/18 14:58 Sandoval # (Auto) 0.8 K/uL (0.0-0.8) 11/11/18 14:58 Eos # (Auto) 0.7 K/uL (0.0-0.7) 11/11/18 14:58 Baso # (Auto) 0.1 K/uL (0.0-0.2) 11/11/18 14:58 Neutrophils % (Manual) 81 % (50-75) H 11/11/18 14:58 Band Neutrophils % 2 % (0-2) 11/11/18 14:58 Lymphocytes % (Manual) 6 % (20-40) L 11/11/18 14:58 Monocytes % (Manual) 6 % (0-10) 11/11/18 14:58 Eosinophils % (Manual) 5 % (0-4) H 11/11/18 14:58 Toxic Granulation Present 11/11/18 14:58 Platelet Estimate Normal (NORMAL) 11/11/18 14:58 Large Platelets Present 11/11/18 14:58 Anisocytosis (manual) Slight 11/11/18 14:58 PT 12.1 SECONDS (9.7-12.2) 11/11/18 14:58 INR 1.1 11/11/18 14:58 APTT 35.0 SECONDS (21-34) H 11/11/18 14:58 Sodium 140 mmol/L (132-148) 11/13/18 07:52 Potassium 5.1 mmol/L (3.6-5.2) 11/13/18 07:52 Chloride 103 mmol/L (98-107) 11/13/18 07:52 Carbon Dioxide 25 mmol/L (22-30) 11/13/18 07:52 Anion Gap 17 (10-20) 11/13/18 07:52 BUN 98 mg/dL (9-20) H 11/13/18 07:52 Creatinine 4.8 mg/dL (0.8-1.5) H 11/13/18 07:52 Est GFR ( Amer) 15 11/13/18 07:52 Est GFR (Non-Af Amer) 12 11/13/18 07:52 Random Glucose 95 mg/dL (75-110) 11/13/18 07:52 Calcium 8.8 mg/dl (8.6-10.4) 11/13/18 07:52 Phosphorus 4.4 mg/dL (2.5-4.5) 11/13/18 07:52 Total Bilirubin 0.8 mg/dL (0.2-1.3) 11/11/18 14:58 AST 58 U/L (17-59) 11/11/18 14:58 ALT 41 U/L (21-72) 11/11/18 14:58 Alkaline Phosphatase 104 U/L (38-126) 11/11/18 14:58 Total Creatine Kinase 61 U/L (55-170) 11/12/18 08:20 CK-MB (Mass) 7.88 ng/mL (0.0-3.38) H 11/12/18 08:20 Troponin I 0.1060 ng/mL (0.00-0.120) 11/12/18 08:20 NT-Pro-B Natriuret Pep 7840 pg/mL (0-900) H 11/11/18 14:58 Total Protein 8.9 g/dL (6.3-8.3) H 11/11/18 14:58 Albumin 4.9 g/dL (3.5-5.0) 11/11/18 14:58 Globulin 3.9 gm/dL (2.2-3.9) 11/11/18 14:58 Albumin/Globulin Ratio 1.3 (1.0-2.1) 11/11/18 14:58 Discharge Exam - Head Exam Head Exam: NORMAL INSPECTION, NORMOCEPHALIC Discharge Plan - Discharge Medications Prescriptions: Amiodarone [Cordarone] 100 mg PO DAILY #30 tab Apixaban [Eliquis] 2.5 mg PO BID #30 tab Furosemide [Lasix] 40 mg PO DAILY #30 tablet Metoprolol Tartrate [Lopressor] 25 mg PO BID #60 tab - Follow Up Plan Condition: GOOD Disposition: AGAINST MEDICAL ADVICE
--- NOTE | 2018-11-15 07:43 | DS ---
DISCHARGE DIAGNOSES: 1. Congestive heart failure exacerbation. 2. Atrial fibrillation with rapid ventricular response. 3. Hypertension. 4. Chronic kidney disease, on hemodialysis. 5. Chronic obstructive pulmonary disease. HISTORY OF PRESENT ILLNESS: The patient is a 68-year-old male well known to me with history of congestive heart failure, CKD, he was on hemodialysis, he signed out against medical advise two days before this admission, history of hypertension. The patient is noncompliant with his diet, medication, on hemodialysis. The patient came in because of shortness of breath, cough, congestion, dyspnea on exertion, orthopnea, leg swelling and he was found to be in fluid overload. Also, he had atrial fibrillation with rapid ventricular response, which responded well to metoprolol. The patient was seen by Renal. He refused dialysis. The patient was seen by Psychiatry. I was able to convince the patient. The patient's son is with him. The patient refused dialysis. He understood the risks and consequences of dialysis including hyperkalemia, sudden cardiac arrest and the patient refuses dialysis and he is signing out against medical advice. Afebrile. No shortness of breath at the moment. PHYSICAL EXAMINATION: VITAL SIGNS: Blood pressure 166/80, pulse 54, respiratory rate 20, temperature 97.3. LUNGS: Decreased air entry. Positive crackles. CARDIOVASCULAR SYSTEM: S1, S2 plus S3 positive. ABDOMEN: Soft. PLAN: The patient signed out against medical advice. Preston Toth MD
== END 2018-11-14 11:40 | disposition left against medical advice (07) | DRG 291 ==
LOC: C.ER 14:38 → C.9E 17:42 → C.5S 23:03
PROVIDERS: ADMIT Internal Medicine; ATTEND Internal Medicine
DX: I13.2 Hypertensive heart and chronic kidney disease with heart failure and with stage 5 chronic kidney disease, or end stage renal disease (principal); I50.9 Heart failure, unspecified; N18.6 End stage renal disease; I48.92 Unspecified atrial flutter; I48.91 Unspecified atrial fibrillation; F43.22 Adjustment disorder with anxiety; G31.84 Mild cognitive impairment of uncertain or unknown etiology; N25.81 Secondary hyperparathyroidism of renal origin; I49.5 Sick sinus syndrome; D63.1 Anemia in chronic kidney disease; J44.9 Chronic obstructive pulmonary disease, unspecified; E83.39 Other disorders of phosphorus metabolism; E78.5 Hyperlipidemia, unspecified; R59.0 Localized enlarged lymph nodes; Z53.29 Procedure and treatment not carried out because of patient's decision for other reasons; Z91.15 Patient's noncompliance with renal dialysis; Z79.01 Long term (current) use of anticoagulants; Z86.718 Personal history of other venous thrombosis and embolism; Z95.828 Presence of other vascular implants and grafts; Z87.891 Personal history of nicotine dependence; Z91.11 Patient's noncompliance with dietary regimen; Z91.19 Patient's noncompliance with other medical treatment and regimen; Z99.2 Dependence on renal dialysis

== ENCOUNTER 2018-11-26 11:59 | Emergency (ER) | payer MEDICARE ==
[2018-11-26 11:59] VITALS: PULSE 140; BMI 21.8
[2018-11-26 12:17] VITALS: RESP 18; O2SAT 99
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
--- NOTE | 2018-11-26 13:11 | RAD ---
Date of service: 11/26/2018 HISTORY: HD COMPARISON: November 11, 2018. FINDINGS: LUNGS: Prominent pulmonary markings particularly left lower lobe/retrocardiac region. Bronchitis/pneumonitis should be considered. PLEURA: No significant pleural effusion identified, no pneumothorax apparent. CARDIOVASCULAR: No atherosclerotic calcification present Normal. OSSEOUS STRUCTURES: No significant abnormalities. VISUALIZED UPPER ABDOMEN: Normal. OTHER FINDINGS: None. IMPRESSION: Increased interstitial markings likely infectious/inflammatory lower lobe predilection left greater than right. These represent new findings compared to November 11, 2018.
[2018-11-26 13:33] LABS: BASO % 0.6 % (0.0-2.0); EOS # 1.2 K/uL (0.0-0.7); EOS % 21.9 % (0.0-4.0); LYMPH # 0.6 K/uL (1.0-4.3); LYMPH % 11.4 % (20.0-40.0); MEAN CELL VOLUME 87.5 fL (80.0-94.0); MEAN CORPUSCULAR HGB CONC 33.1 g/dL (33.0-37.0); MEAN PLATELET VOLUME 9.2 fL (7.2-11.7); MONO # 0.7 K/uL (0.0-0.8); NEUT % 53.1 % (50.0-75.0); NRBC % 0.1 % (0.0-2.0); PLATELET COUNT 152 K/uL (130-400); RBC 4.48 Mil/uL (4.40-5.90); RED CELL DISTRIBUTION WIDTH 14.6 % (11.5-14.5)
[2018-11-26 13:39] LABS: WHITE BLOOD COUNT 5.6 K/uL (4.8-10.8)
[2018-11-26 13:46] LABS: ALB/GLOB RATIO 1.2 (1.0-2.1); ALBUMIN 4.1 g/dL (3.5-5.0); CALCIUM 8.7 mg/dl (8.6-10.4)
[2018-11-26 14:05] LABS: BANDS 2 % (0-2); EOSINOPHIL 20 % (0-4); LYMPHOCYTE 8 % (20-40); MONOCYTE 12 % (0-10); NEUTROPHIL 58 % (50-75); OVALOCYTES SLIGHT; PLATELET ESTIMATE NORMAL (NORMAL); TOTAL CELLS COUNTED 100
[2018-11-26 14:08] LABS: INR 1.4; PARTIAL THROMBOPLASTIN TIME 40.8 SECONDS (21-34); PROTHROMBIN TIME 14.9 SECONDS (9.7-12.2)
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
[2018-11-26 14:57] VITALS: BP 122/68; PULSE 55; TEMP 98
== END 2018-11-26 15:19 | disposition home or self-care (01) ==
LOC: C.ER 11:59
DX: I12.0 Hypertensive chronic kidney disease with stage 5 chronic kidney disease or end stage renal disease (principal); N18.6 End stage renal disease